=== PATIENT | male | born 1960 | race Caucasian/White ===

== ENCOUNTER → 2020-06-04 08:25 | Outpatient (BNVA) | payer MEDICAID, SELFPAY | PROVIDERS: PCP Internal Medicine Geriatric Medicine; Referring Provider Internal Medicine Geriatric Medicine; Visit Provider Psychiatry & Neurology Neurology | DX: Z76.89 Persons encountering health services in other specified circumstances (principal) ==

== ENCOUNTER 2020-07-26 10:42 | Outpatient (REF) | payer MEDICAID, SELFPAY | END 2020-07-26 10:43 | disposition home or self-care (01) | LOC: HO.LAB 10:42 | PROVIDERS: Visit Provider Internal Medicine | DX: Z20.822 Contact with and (suspected) exposure to COVID-19 (principal) | CPT/HCPCS: 36415; C9803; U0003 ==

== ENCOUNTER → 2020-09-26 12:47 | Outpatient (BNVA) | payer MEDICAID, SELFPAY | PROVIDERS: PCP Internal Medicine Geriatric Medicine; Visit Provider Internal Medicine Cardiovascular Disease | DX: I10 Essential (primary) hypertension (principal); Z79.899 Other long term (current) drug therapy | CPT/HCPCS: 93005; 99212 ==

== ENCOUNTER 2020-10-09 11:00 | Outpatient (REF) | payer MEDICAID, SELFPAY ==
[2020-10-09 14:34] LABS: SARS COV2 PCR INHOUSE NEGATIVE (Negative)
== END 2020-10-09 11:01 | disposition home or self-care (01) ==
LOC: HO.LAB 11:00
PROVIDERS: Visit Provider Internal Medicine
DX: Z20.822 Contact with and (suspected) exposure to COVID-19 (principal)
CPT/HCPCS: C9803; U0003

== ENCOUNTER → 2020-12-03 09:05 | Outpatient (BNVA) | payer MEDICAID, SELFPAY | PROVIDERS: PCP Internal Medicine Geriatric Medicine; Visit Provider Psychiatry & Neurology Neurology ==

== ENCOUNTER → 2021-02-11 10:35 | Outpatient (BNVA) | payer MEDICAID, SELFPAY | PROVIDERS: PCP Internal Medicine Geriatric Medicine; Visit Provider Psychiatry & Neurology Neurology ==

== ENCOUNTER 2022-08-06 09:05 | Outpatient (REF) | payer MEDICAID, SELFPAY ==
--- NOTE | ~2022-08-06 | XR_ITS ---
EXAMINATION: XR CHEST CLINICAL INFORMATION: Chronic cough. COMPARISON: None TECHNIQUE: 2 views of the chest were obtained. FINDINGS: The lungs are well-expanded and clear of acute process. Heart size and pulmonary vascularity is normal. There are epidural nerve stimulators overlying the T9 and T10 vertebra. There is mild lateral spondylosis mid and lower dorsal spine. XR/XR chest 2V IMPRESSION: Unremarkable chest exam.
== END 2022-08-06 09:06 | disposition home or self-care (01) ==
LOC: HO.XRAY 09:05
PROVIDERS: PCP Internal Medicine Geriatric Medicine; Visit Provider Emergency Medicine
DX: R05.3 Chronic cough (principal)
CPT/HCPCS: 71046

== ENCOUNTER 2023-05-13 11:03 | Outpatient (REF) | payer OTHER, MEDICAID, SELFPAY ==
--- NOTE | ~2023-05-13 | XR_ITS ---
EXAMINATION: XR THORACOLUMBAR SPINE CLINICAL INFORMATION: Chronic left-sided thoracic pain COMPARISON: Chest radiograph 08/11/2017, thoracic spine 05/03/2014 TECHNIQUE: 2 views thoracic spine FINDINGS: Again seen are some moderate degenerative changes in the thoracic spine most marked in the mid and lower portion. Since the prior study, a spinal stimulator has been placed with leads at the top of T9. No compression fractures are seen. No destructive lesions are present. Degenerative changes are also present in the partially visualized visualized lumbosacral spine with changes most marked at L2-L3 with large osteophytes. XR/XR thoracic spine 2V IMPRESSION: Degenerative changes in the thoracic and lumbosacral spine as described above. Spinal stimulator leads as described above.
[2023-05-17 12:49] LABS: Fentanyl, Ur NEGATIVE; Norfentanyl, Ur NEGATIVE
== END 2023-05-13 11:04 | disposition home or self-care (01) ==
LOC: HO.HHCX 11:03
PROVIDERS: Internal Medicine Geriatric Medicine; Visit Provider Internal Medicine
DX: G89.4 Chronic pain syndrome (principal); M54.6 Pain in thoracic spine
CPT/HCPCS: 72070; 80354

== ENCOUNTER 2023-09-27 10:37 | Outpatient (REF) | payer OTHER, MEDICAID, SELFPAY ==
[2023-09-27 13:14] LABS: MANUAL DIFF FLAG NO
[2023-09-27 13:42] LABS: Basophils Percent Auto 0.4 % (0-2); Eosinophils Absolute Auto 0.2 X10*3/uL (0.0-0.4); Eosinophils Percent Auto 1.8 % (0-4); Hematocrit 40.4 % (42.0-52.0); Hemoglobin 13.5 g/dl (14.0-18.0); Imm Gran Abs Auto 0.02 X10*3/uL (0.00-0.03); Imm Gran Pct Auto 0.2 % (0.0-0.4); Lymphocytes Absolute Auto 3.1 X10*3/uL (1.2-4.9); Lymphocytes Percent Auto 33.2 % (20-40); Mean Corpuscular HGB Conc 33.4 g/dl (31.0-36.0); Mean Corpuscular Hemoglobin 28.1 pg (27.0-33.0); Mean Corpuscular Volume 84.2 fL (80.0-98.0); Mean Platelet Volume 10.8 fL (9.4-12.4); Monocytes Absolute Auto 0.7 X10*3/uL (0.1-1.2); Monocytes Percent Auto 7.4 % (2-11); Neutrophils Absolute Auto 5.3 x10*3/uL (2.0-8.3); Platelet Count 315 X10*3/uL (160-400); Red Cell Distribution Width 14.9 % (11.0-16.0); White Blood Count 9.4 X10*3/uL (4.8-10.8)
[2023-09-27 14:16] LABS: Alanine Aminotransferase 26 U/L (0-40); Alkaline Phosphatase 68 U/L (39-117); Anion Gap 11 (12-20); Aspartate Amino Transferase 24 U/L (5-37); Bilirubin Total 0.4 mg/dL (0.0-1.0); Blood Urea Nitrogen 15 mg/dL (9-16); Calcium 9.6 mg/dL (8.4-10.2); Carbon Dioxide 30 mmol/L (22-29); Chloride 102 mmol/L (96-108); Cholesterol 128 mg/dL (<200); Estimated Glomerular Filt Rate > 60; Glucose Random 178 mg/dL (60-115); HDL Cholesterol 38 mg/dL (>40); LDL Cholesterol Calculated 78 mg/dL (<100); Sodium 139 mmol/L (135-145); Total Protein 7.3 g/dL (6.5-8.0); Triglycerides 61 mg/dL (<150)
[2023-09-27 14:22] LABS: TSH reflex Free T4 0.63 uIU/mL (0.32-4.0)
[2023-09-27 14:50] LABS: Creatinine Urine 155.01 mg/dL
== END 2023-09-27 10:38 | disposition home or self-care (01) ==
LOC: HO.HHCL 10:37
PROVIDERS: Visit Provider Internal Medicine Geriatric Medicine
DX: E11.65 Type 2 diabetes mellitus with hyperglycemia (principal); I10 Essential (primary) hypertension; M54.6 Pain in thoracic spine; G89.29 Other chronic pain; E03.9 Hypothyroidism, unspecified
CPT/HCPCS: 36415; 80053; 80061; 82043; 82570; 84443; 85025

== ENCOUNTER 2024-05-16 13:32 | Outpatient (REF) | payer OTHER, MEDICAID, SELFPAY | END 2024-05-16 13:33 | disposition home or self-care (01) | LOC: HO.HHCLNP 13:32 | PROVIDERS: Visit Provider Internal Medicine Geriatric Medicine | DX: G89.4 Chronic pain syndrome (principal) | CPT/HCPCS: 80307 ==

== ENCOUNTER 2025-01-02 10:18 | Outpatient (REF) | payer OTHER, MEDICAID, SELFPAY ==
--- OUTSIDE RECORDS SUMMARY | 2025-01-02 11:24 | XMS_ITS | Encounter Summary ---
Author Organization [facility] Address [address] [facility] 7 [place] [address] Care Team Providers Care Holter Technician Name Role Phone Name, Jayjay JUAREZ Primary Care Provider [phone] Reason for Visit * Reason Comments Med Refill Encounter Details Date Type Department Care Team ([facility] st Contact Info) Description 11/13/2024 Refill [facility] [address] [place], [place] [phone] Rylee Forrester, LUIS [address] [place], [place] [phone] Chronic pain syndrome Social History Tobacco Use Types Packs/Day Years Used Date Smoking Tobacco: Never Smokeless Tobacco: Never Alcohol Use Standard Drinks/Week Comments Never 0 (1 standard drink = 0.6 oz pur e alcohol) Alcohol Answer Date Recorded Frequency of Alcohol Consumption Not on file 01/07/2024 Average Number of Drinks Not on file 024 Frequency of Binge Drinking Not on file 12/11 Score 0 01/07/2024 Depression Answer Date Recorded Patient Health Questionnaire-9 Score 6 09/27/2023 Patient Health Questionnaire-9 Score 6 09/27/2023 Last PHQ-9: Questionnaire Data Not on file 0 09/27/2023 Housing Stability Answer Date Recorded What is your housing situation today? I have jane horn 01/07/[address] you li ve. Do you have problems with any of the following? None of the above 01/07/2024 Food Insecurity Answer Date Recorded Within the past 12 months, y ou worried that your food would run out before you got money to buy more: Never True 01/07/2024 Within the past 12 months,th e food you bought just didn't last and you didn't have enough money to get more: Never True Transportation Answer Date Recorded In the past 12 months, has l ack of transportation kept you from medical appts, meetings, work or from getting things needed for daily living? No 01/07/2024 Utilities Answer Date Recorded In the past 12 months, has t he electric, gas, oil or water company threatened to shut off services in your home? No 01/07/2024 Depression Answer Date Recorded Patient Health Questionnaire-2 Score 2 09/27/2023 Internet Access Answer Date Recorded Internet Access Q1 No 03/10/2024 Internet Access Q2 I do not want or need it 02/11 Sex and Gender Information Value Date Recorded Sex Assigned at Male 05/11/2022 10:20 AM EDT Legal Sex Male 10:20 AM EDT Gender Identity Male 05/11/2022 10:20 AM EDT Sexual Orientation Straight 05/11/2022 10 :20 AM EDT documented as of this encounter Plan of Treatment Upcoming Encounters Date Type Department Care Team (Late st Contact Info) Description 01/03/2025 10:30 AM EDT Clinical Support [facility] [address] [place] [phone] Charisse Crisostomo RN 01/11/2025 11:15 AM EDT Office Visit [facility] [address] [place] [phone] Name, MD Jayjay [address] [place] [phone] documented as of this encounter Goals Goal Patient Goal Type Associated Problems Recent Progress Patient-Stated? Author Blood Pressure < 140/90 Blood Pressure 117/67(2024 12:01 PM EST) Heriberto Barnard Hemoglobin A1c < 7 Result Component 7.3( 9:36 AM EST) Heriberot Barnard documented as of this encounter Visit Diagnoses Diagnosis Chronic pain syndrome documented in this encounter Additional Health Concerns Assessment Noted Time PHQ-9 Depression Total Score: 6 09/27/19 24 9:51 AM EDT documented as of this encounter Care Teams Holter Technician Relationship Specialty Start Date End Date Name, MD Jayjay [address] [place] [address] PCP - General Family Medicine 07/26/15 documented as of this encounter
[2025-01-02 12:03] LABS: Alanine Aminotransferase 19 U/L (0-40); Albumin Level 3.8 g/dL (3.5-5.0); Alkaline Phosphatase 56 U/L (39-117); Anion Gap 12 (12-20); Aspartate Amino Transferase 28 U/L (5-37); Bilirubin Total 0.3 mg/dL (0.0-1.0); Blood Urea Nitrogen 17 mg/dL (9-16); Calcium 9.2 mg/dL (8.4-10.2); Carbon Dioxide 32 mmol/L (22-29); Chloride 102 mmol/L (96-108); Cholesterol 131 mg/dL (<200); Estimated Glomerular Filt Rate > 60; Glucose Random 247 mg/dL (60-115); HDL Cholesterol 37 mg/dL (>40); LDL Cholesterol Calculated 73 mg/dL (<100); Potassium 4.5 mmol/L (3.3-5.1); Sodium 141 mmol/L (135-145); Total Protein 6.8 g/dL (6.5-8.0); Triglycerides 107 mg/dL (<150)
[2025-01-02 12:19] LABS: Creatinine Urine 183.24 mg/dL; Microalbum/Creatinine Ratio Ur 6.5 ug/mg cr (<30)
[2025-01-02 12:24] LABS: TSH reflex Free T4 2.54 uIU/mL (0.32-4.0)
== END 2025-01-02 10:19 | disposition home or self-care (01) ==
LOC: HO.HHCL 10:18
PROVIDERS: PCP Internal Medicine Geriatric Medicine; Visit Provider Internal Medicine Geriatric Medicine
DX: E03.9 Hypothyroidism, unspecified (principal); E11.65 Type 2 diabetes mellitus with hyperglycemia
CPT/HCPCS: 36415; 80053; 80061; 82043; 82570; 84443

== ENCOUNTER 2025-02-20 10:41 | Outpatient (REF) | payer OTHER, SELFPAY ==
--- NOTE | ~2025-02-20 | XR_ITS ---
CLINICAL HISTORY: M54.50 - Low back pain, unspecified 5 views lumbar spine Comparison: None provided Findings: Normal alignment. No acute fractures or dislocation. Multilevel degenerative changes of the lumbar spine with osteophytes and narrowing of the intervertebral disc space. Spinal stimulator. IMPRESSION: No acute findings. Multilevel degenerative changes. This document has been electronically signed by: Funmilayo Velasquez MD on 02/21/2025 13:11:01
--- NOTE | ~2025-02-20 | XR_ITS ---
CLINICAL HISTORY: Z96.89 - Presence of other specified functional implants 3 views thoracic spine Comparison: CR/SR - XR THORACIC SPINE 2 VIEWS - 05/13/23 11:24 EDT Findings: Normal vertebral body alignment. No acute fractures or dislocation. There is degenerative change. The tip of the electrodes of the spinal stimulator is at level of T9, unchanged from prior. IMPRESSION: No acute findings. This document has been electronically signed by: Funmilayo Velasquez MD on 02/21/2025 13:13:50
== END 2025-02-20 10:42 | disposition home or self-care (01) ==
LOC: HO.XRAY 10:41
PROVIDERS: PCP Internal Medicine Geriatric Medicine; Referring Provider Internal Medicine Geriatric Medicine; Visit Provider Nurse Practitioner Family
DX: M51.16 Intervertebral disc disorders with radiculopathy, lumbar region (principal); M47.26 Other spondylosis with radiculopathy, lumbar region; M51.34 Other intervertebral disc degeneration, thoracic region; G89.29 Other chronic pain; Z96.89 Presence of other specified functional implants
CPT/HCPCS: 72072; 72110; 99202

== ENCOUNTER 2025-02-20 10:41 | Outpatient (AMB) | payer OTHER, SELFPAY ==
--- NOTE | 2025-02-20 10:43 | A.OFFVIS_ITS ---
Vital Signs 02/20/25 10:50 Height 5 ft 11 in Weight 225 lb 2 oz BMI 31.4 BP 166/83 H Blood Pressure Location Lt brachial Position Sitting Pulse 71 Pulse Source Pulse Oximeter Pulse Oximetry (%) 96 Oxygen Delivery Method Room Air Intake Visit Reasons: Chronic pain syndrome Intake Note: Pain today 02/18 Accompanied by: Family/Other Allergies No Known Allergies Allergy (Verified 02/11/21 10:36) oxycodone Adverse Reaction (Unknown, Verified 02/11/21 10:36) itching lactose Allergy (Unknown, Uncoded 02/11/21 10:36) unknown HPI Comments Details: The patient is a 65-year-old male presenting with chronic pain syndrome. The pain is primarily located in the lower back, with a greater intensity on the right side, and has been persistent for several years. He previously engaged with [facility] and completed physical therapy five years ago. The patient has a history of degeneration of the lumbar intervertebral discs and arthritis, leading to discogenic back pain and lower extremity pain. He has been on medications including Lyrica, oxycodone, and Tylenol to manage the pain. Despite these interventions, the pain has been debilitating, affecting his daily activities, mobility, and sleep. He has a spinal cord stimulator placed in 2015 at [facility], which he believes is not providing significant relief currently. Attempts to contact [employer] for assistance have been hindered by language barriers, and the device has not been functioning properly although he reports significant back and leg pain relief when it was initially placed. The patient also reports a history of depression following the deaths of his and mother, although he is not suicidal. He is under the care of a counselor and Psychiatric provider and is on medication with good effect. Additionally, he has diabetic neuropathy, which contributes to numbness and tingling extending to the ankles and feet. - Onset: Chronic, persistent for several years - Quality: Radiating, numbness, tingling, cramping, shooting, stabbing, aching, throbbing - Location: Lower back, primarily right side, radiating to right leg - Exacerbating factors: Mobility, daily activities and functions, sleep, bending, climbing stairs - Relieving factors: Medications (Lyrica, oxycodone, Tylenol) with limited effect - Affect: Reports depression, not suicidal, under psychiatric care - Analgesia: Currently on Lyrica, oxycodone, Tylenol; pain persists - Adverse Effects: None reported - Activities of Daily Living: Pain affects mobility, daily activities, and sleep - Aberrant Drug Related Behaviors: None reported [facility] Medical History Spinal cord stimulator status (~2014) Thoracic degenerative disc disease Lumbar degenerative disc disease Chronic low back pain Chronic pain syndrome HTN (hypertension) Hx of cataract Surgical History Hx of colonoscopy Hx of appendectomy History of penile implant Hx of transurethral resection of prostate History of back surgery (~2014) Family History Father Kidney disease Mother No problems noted. Review of Systems Const Details: - Musculoskeletal: Reports chronic lower back pain, numbness, tingling right leg, cramping in right calf, right buttock pain, and down the leg and toes - Neurological: Reports right leg weakness, numbness and tingling extending to the ankle; denies bladder or bowel dysfunction or saddle anesthesia - Psychiatric: Reports depression, denies suicidal ideation; sees Psychiatrist and counselor - Endocrine: Reports diabetic neuropathy All systems reviewed & are unremarkable except as noted in HPI and below Physical Exam Vital Signs: Last Vital Signs Pulse 71 02/20/25 10:50 BP 166/83 H 02/20/25 10:50 Pulse Ox 96 02/20/25 10:50 Oxygen Delivery Method Room Air 02/20/25 10:50 BMI result Body Mass Index 31.4 General: Appears afebrile. Alert and oriented. Mood and affect appropriate. Follows and participates in conversation appropriately. Respiratory effort is unlabored. No cough. Able to transition from sit to stand unassisted. Uses cane with ambulation. Ambulates with bilaterally normal heel strike and toe off, RLE weakness and pain with walking. General: Yes no CVA tenderness Back/Spine/Pelvis Other: Limited lumbar ROM due to pain. Antalgic gait, no limping. Demonstrates 5/5 left and 4/5 right strength of quadriceps bilaterally as well as flexion/dorsiflexion of bilateral feet against resistance. 2+ pedal pulses bilaterally. Straight leg rise with dorsiflexion positive on the right. +1 right +2 left patellar and achilles reflexes bilaterally. Facet loading test positive bilaterally. Oscar?s, Pelvic compression and Stinchfield tests are negative bilaterally. No groin pain with I/E hip rotations. Valsalva maneuver is positive. Back: no CVA tenderness Cervical Spine: cervical ROM normal, cervical muscular tenderness, No Cervical spine tenderness and No step off deformity Thoracic/Lumbar Spine: thoracic and lumbar spine normal to inspection, Thoracic/lumbar spine scar(s), Lasegue's sign positive on the right and localized, pain with thoraco-lumbar ROM, paraspinal muscle tenderness, No thoracic spinal tenderness and lumbar spinal tenderness (L4-S1) Pelvis: buttock tenderness on the right Sacroiliac joints: bilaterally tender to palpation (mild) Extrem General: Yes capillary refill normal, Yes no clubbing, cyanosis or edema and Yes no calf tenderness Results Reviewed Results Reviewed: XR THORACOLUMBAR SPINE 05/13/23 CLINICAL INFORMATION: Chronic left-sided thoracic pain COMPARISON: Chest radiograph 08/11/2017, thoracic spine 05/03/2014 TECHNIQUE: 2 views thoracic spine FINDINGS: Again seen are some moderate degenerative changes in the thoracic spine most marked in the mid and lower portion. Since the prior study, a spinal stimulator has been placed with leads at the top of T9. No compression fractures are seen. No destructive lesions are present. Degenerative changes are also present in the partially visualized visualized lumbosacral spine with changes most marked at L2-L3 with large osteophytes. IMPRESSION: Degenerative changes in the thoracic and lumbosacral spine as described above. Spinal stimulator leads as described above. Assessment & Plan Assessment & Plan (1) Chronic low back pain: Code(s): M54.50 - Low back pain, unspecified; G89.29 - Other chronic pain Category: Medical (2) Spinal cord stimulator status: Onset Date: ~2014 Comment: [employer], placed by [employer] 2014 Code(s): Z96.89 - Presence of other specified functional implants Category: Medical (3) Lumbar degenerative disc disease: Code(s): M51.369 - Other intervertebral disc degeneration, lumbar region without mention of lumbar back pain or lower extremity pain Category: Medical (4) Lumbosacral spondylosis: Code(s): M47.817 - Spondylosis without myelopathy or radiculopathy, lumbosacral region Category: Medical (5) Thoracic degenerative disc disease: Code(s): M51.34 - Other intervertebral disc degeneration, thoracic region Category: Medical (6) Chronic pain syndrome: Code(s): G89.4 - Chronic pain syndrome Category: Medical (7) Right lumbar radiculopathy: Code(s): M54.16 - Radiculopathy, lumbar region Category: Medical Plan - Plan to perform x-rays of the thoracic and lower back regions to assess for lead migration of the spinal cord stimulator and degree of degenerative changes - MRI of the back to be conducted to further evaluate right sided radiculopathy and associated right leg weakness with walking. - Contact [employer] rep to address issues with the spinal cord stimulator and update SCS program as needed to optimize pain relief. - Discussed consideration of therapeutic injections if pain management remains inadequate. Continue Percocet and Lyrica and activity modifications. All questions and concerns have been answered and patient agreed with the plan. Follow up for MRI/xray results and sooner as needed. Patient was informed and verbally consented to the use of an ambient scribe for clinic note documentation during this visit. Orders: Orders XR lumbar spine 4V min Today G89.29 - Other chronic pain, M47.817 - Spondylosis without myelopathy or radiculopathy, lumbosacral region, M51.369 - Other intervertebral disc degeneration, lumbar region without mention of lumbar back pain or lower extremity pain, M54.50 - Low back pain, unspecified, Z96.89 - Presence of other specified functional implants XR thoracic spine 3V Today M51.34 - Other intervertebral disc degeneration, thoracic region, Z96.89 - Presence of other specified functional implants MR lumbar spine wo con Today M51.369 - Other intervertebral disc degeneration, lumbar region without mention of lumbar back pain or lower extremity pain, M54.16 - Radiculopathy, lumbar region, Z96.89 - Presence of other specified functional implants Coding Level of Care Code New Pt Level 4 (06932) Diagnoses Chronic low back pain M54.50; G89.29 Spinal cord stimulator status Z96.89 Lumbar degenerative disc disease M51.369 Lumbosacral spondylosis M47.817 Thoracic degenerative disc disease M51.34 Chronic pain syndrome G89.4 Right lumbar radiculopathy M54.16
[2025-02-20 10:50] VITALS: BP 166/83; PULSE 71; O2SAT 96; BMI 31.4
--- OUTSIDE RECORDS SUMMARY | 2025-02-20 11:46 | XMS_ITS | Encounter Summary ---
Author Organization [facility] Address [address] [place] [address] Encounters * CPT with Randall Clifford at [facility] on 2025-01-18 { reasonForRequest : Patient has back pain. , patientReports : & quot;, denies :[], chiefComplaints : Back Pain , pmh : Hypertension, Diabetes Mellitus Type 2, Osteoarthritis, Hypothyroidism , allergies :"No Known Drug Allergies , otherAllergies : , painAssessment&quot ;: , visitOutcome : , additionalComments : 64 y.o male complains of Back Pain\n\nPatient acute on chronic back pain.\nHe expresses severe arthritis and p inched nerves.\nHe has received cortisone injections, however, doctors advised against anymore due to bone loss.\nPatient does have physical therapy but it makes the pain worse.\nHe takes oxycodone for pain, but it does not offer much relief.\nHe is in the process of getting an appt with the pain clinic.\nHe has used heat, ice and patches.\nHe denies any kidney disease and does not take any bloodthinners.\nHe would like to be evaluated.\n\nI provided information on the mobile health provider response time and advised the patient and/or caregiver to monitor reported signs and symptoms. I discussed the warning signs of when to seek emergency care. } Patient standing at door. Patient walks with a steady even slow GAIT with a cane. Patient complainsof chronic lower back pain times years. Patient reports increased pain today because he ran out of oxycodone and gabapentin. Patient reports he has refills coming by mail tomorrow. Patient defies anyrecent trauma. Patient has nerve simulator installed the right side lower back. Patient denies any acute changes. Patient denies any other pain or complaints. Patient pink warm dry secondary exam unremarkable negative increased worker breathing positive fullsentences, extremities unremarkable. Medication administered as ordered without complication using five rights. Red flags patient education discussed. Patient demonstrates understanding of care and plan. All communication through caregivers non medical on phone. Patient given an opportunity to ask questions. IV_(FLUIDS_AND/OR_MEDICATION), MEDICATION_IM, ORAL_MEDICATION, EKG Written by Randall Clifford on 2025-01-18
--- OUTSIDE RECORDS SUMMARY | 2025-02-20 11:46 | XMS_ITS | Encounter Summary ---
Author Organization [facility] Address [address] [place] [address] Care Team Providers Care Dredge Lever Operator Name Role Phone Name, Jayjay JUAREZ Primary Care Provider [phone] Reason for Visit * Reason Comments Med Refill Encounter Details Date Type Department Care Team ([facility] st Contact Info) Description 11/13/2024 Refill [facility] [address] [place], [place] [id number] Rylee Forrester, LUIS [address] [place], [place] [phone] Chronic pain syndrome Social History Tobacco Use [...] Care Team (Late st Contact Info) Description 05/07/2025 10:00 AM EDT Clinical Support [facility] [address] [place] [address] Charisse Crisostomo RN documented as of this encounter Goals Goal Patient Goal Type Associated Problems Recent Progress Patient-Stated? Author Blood Pressure < 140/90 Blood Pressure 136/88(2024 11:00 AM EDT) No Heriberto Arellano Hemoglobin A1c < 7 Result Component 6.7( 11:02 AM EDT) No Heriberto Arellano documented as of this encounter Visit Diagnoses Diagnosis Chronic pain syndrome documented in this encounter Additional Health Concerns Assessment Noted Time PHQ-9 Depression Total Score: 6 09/27/19 24 9:51 AM EDT documented as of this encounter Care Teams Dredge Lever Operator Relationship Specialty Start Date End Date Name, MD Jayjay [address] [place] [address] PCP - General Family Medicine 07/26/15 documented as of this encounter
--- OUTSIDE RECORDS SUMMARY | 2025-02-20 11:46 | XMS_ITS | Patient Health Record ---
Author Organization [facility] Address [address] [place] [id number] Care Team Providers Care Manufacturing Engineer Machining Name Role Phone Leeann Rahman MD Primary Care Provider Kolton Khan [phone] Reason For Referral No Information Plan Of Treatment No Information
--- OUTSIDE RECORDS SUMMARY | 2025-02-20 11:46 | XMS_ITS | Clinical Summary ---
Author Organization [facility] Address [address] [place] [address] Care Team Providers Care Head Of Precision Targeting Name Role Phone Name, Jayjay JUAREZ Primary Care Provider [phone] Surgical History Surgery Date Site/Laterality Comments TURP / TRANSURETHRAL INCISIO N / DRAINAGE PROSTATE PROCEDURE: HISTORICAL TURP EYE SURGERY PROCEDURE: HISTORICAL EYE SURGERY; COMMENT: for pterigion OTHER SURGICAL HISTORY PROCEDURE: ---- OTHER ----; COMMENT: pennis surgery of peironie disease. BACK SURGERY 04/08/2015 PROCEDURE: HISTORICAL BACK SURGERY; COMMENT: Lumbar Percutaneous Spinal Cord Stimulator, Medical History Medical History Date Comments GE reflux 09/01/2012 DX:GE reflux Erectile dysfunction 09/01/2012 DX:Erectile dysfunction Obesity DX:Obesity Obstructive sleep apnea DX:Obstr uctive sleep apnea Type 2 diabetes mellitus (CM S/HCC V24, CMS/HCC V28) DX:Type 2 diabetes mellitus (HCC) Diabetic polyneuropathy (CMS /HCC V24, CMS/HCC V28) DX:Diabetic polyneuropathy ( HCC) Essential hypertension DX:Essent ial hypertension Lumbosacral radiculopathy du e to degenerative joint disease of spine DX:Lumbosacral rad iculopathy due to degenerative joint disease of spine Fibromyalgia DX:Fibromyalgia Anxiety and depression DX:Anxiet y and depression Hypothyroidism DX:Hypothyroidis m BPH (benign prostatic hyperplasia) DX:BPH (benign prostatic hyperplasia) Hyperlipidemia DX:Hyperlipidemi a Family History Medical History Relation Name Comments Autoimmune disease Neg Hx Breast cancer Neg Hx Colon cancer Neg Hx Coronary artery disease Neg Hx Diabetes Neg Hx Heart attack Neg Hx Heart failure Neg Hx Hyperlipidemia Neg Hx Hypertension Neg Hx Mental illness Neg Hx Prostate cancer Neg Hx Sleep apnea Neg Hx Thyroid disease Neg Hx Relation Name Status Comments Brother Alive asthma Daughter 1 Alive Daughter 2 Alive depression/bipo lar Father DM, ESRD Mother Alive HTN Sister Alive asthma Son Alive Social History Tobacco Use Types Packs/Day Years Used Date Smoking Tobacco: Never Smokeless Tobacco: Never Alcohol Use Standard Drinks/Week Comments No 0 (1 standard drink = 0.6 oz pur e alcohol) Sex and Gender Information Value Date Recorded Sex Assigned at Not on file Legal Sex Male 11:38 PM EST Gender Identity Not on file Sexual Orientation Not on file Obstetrics History Last Filed Vital Signs Vital Sign Reading Time Taken Comments Blood Pressure - - Pulse - - Temperature - - Respiratory Rate - - Oxygen Saturation - - Inhaled Oxygen Concentration - - Weight 111 kg (244 lb) 04/24/2022 1:42 PM EDT Height 177.8 cm (5' 10 ) 04/24/2022 1:42 PM EDT Body Mass Index 35.01 04/24/2022 1:42 PM EDT Plan of Treatment Health Maintenance Due Date Last Done Comments Diabetes: Annual GFR (Glomerular Filtration Rate) 1958 Diabetes: Annual Foot Exam 02/06/1968 Diabetes: Annual Retina Eye Exam 02/06/1968 Zoster Vaccines (1 of 2) 02/06/2008 Pneumococcal Vaccine: 50+ Years (2 of 2 - PCV) 04/10/2011 04/10/2010 DTaP,Tdap,and Td Vaccines (2 - Td or Tdap) 03/19/2021 03/19/2011 Abdominal Aortic Aneurysm (AAA) Screen 06/21/2022 Cholesterol Screening (Lipid Panel) 06/21/2022 Colorectal Cancer Screening: Colonoscopy 06/21/2022 Hepatitis C Screening 06/21/2022 Social Influencers of Health Screening 06/21/2022 Diabetes: Annual Urine Albumin-Creatinine Ratio (uACR) 06/26/2022 Diabetes: Blood Sugar Control Test (HGBA1C) 06/26/2022 Hypertension/CHF/CAD Annual BMP Blood Test 06/26/2022 Falls Risk Assessment 2023 COVID-19 Vaccine ( season) 2024 Depression Screening 07/12/2024 Influenza Vaccine (#1) 2025 5, 06/12/2014, 04/18/2013, Additional history exists RSV Immunization Adult Patients (1 - 1-dose 75+ series) 2033 HIB Vaccines Aged Out No longer eligi ble based on patient's age to complete this topic HPV Vaccines Aged Out No longer eligi ble based on patient's age to complete this topic Hepatitis A Vaccines Aged Out No long er eligible based on patient's age to complete this topic Hepatitis B Vaccines Aged Out No long er eligible based on patient's age to complete this topic IPV Vaccines Aged Out No longer eligi ble based on patient's age to complete this topic MMR Vaccines Aged Out No longer eligi ble based on patient's age to complete this topic Meningococcal ACWY Vaccine Aged Out N o longer eligible based on patient's age to complete this topic Meningococcal B Vaccine Aged Out No l onger eligible based on patient's age to complete this topic RSV Immunization Patients Under 20 months Aged Out No longer eligible based on patient's age to complete this topic Varicella Vaccines Aged Out No longer eligible based on patient's age to complete this topic Care Teams Head Of Precision Targeting Relationship Specialty Start Date End Date Name, MD Jayjay [address] [place], [place] PCP - General Internal Medicine 05/13/21
== END 2025-02-20 11:20 | disposition home or self-care (01) ==
PROVIDERS: PCP Internal Medicine Geriatric Medicine; Referring Provider Internal Medicine Geriatric Medicine; Visit Provider Nurse Practitioner Family
DX: M54.50 Low back pain, unspecified (principal); G89.29 Other chronic pain; Z96.89 Presence of other specified functional implants; M51.369 Other intervertebral disc degeneration, lumbar region without mention of lumbar back pain or lower extremity pain; M47.817 Spondylosis without myelopathy or radiculopathy, lumbosacral region; M51.34 Other intervertebral disc degeneration, thoracic region; G89.4 Chronic pain syndrome; M54.16 Radiculopathy, lumbar region
CPT/HCPCS: 99204

== ENCOUNTER → 2025-02-20 11:30 | Outpatient (BNV) | payer OTHER, SELFPAY | PROVIDERS: PCP Internal Medicine Geriatric Medicine; Referring Provider Internal Medicine Geriatric Medicine; Visit Provider Nuclear Medicine | DX: M51.369 Other intervertebral disc degeneration, lumbar region without mention of lumbar back pain or lower extremity pain (principal); Z96.82 Presence of neurostimulator | CPT/HCPCS: 72072; 72110 ==

== ENCOUNTER 2025-05-07 16:35 | Outpatient (REF) | payer OTHER, SELFPAY ==
--- OUTSIDE RECORDS SUMMARY | 2015-01-03 12:22 | XMS_ITS | Continuity of Care Document ---
Author Organization [facility] Address [address] [place] [address] Phone Care Team Providers Care Senior Market Research Analyst Name Role Phone Fede Mansfield MD Unavailable Unavailable Advance Directives Directive Yes / No Effective Date File Name No Information Encounters Encounter Description Practice Location Reason(s) For Visit Diagnoses Date Provider Providers Copied on Encounter [facility], [address], [place], [place], [id number], [place] tel:[phone] [facility] No Information Shyla Mistry. [address] [place], [place], [id number], [place]. tel:[phone] Family History Family Member Type Diagnosis Age At Onset No Information Payers Payer name Insurance type Covered alliance party ID Authoriza tion(s) No Information Social History Type Description Quantity Date Captured Comments Sex Male Smoking Status No Information Chief Complaint And Reason For Visit No Information Reason For Referral Reason For Referral No Information History Of Present Illness Encounter Date Complaint History Of Prese nt Illness No Information Functional Status Date Functional Assessmen t No Information Instructions Date Instruction Additional Infor mation No Information Assessments Type Assessment Date No Information Patient Care Teams Name Effective Dates (start - stop) Status Members No Information
--- OUTSIDE RECORDS SUMMARY | 2021-04-25 07:15 | XMS_ITS | Continuity of Care Document ---
Author Organization [facility] Address [address] [place] [phone] Phone Care Team Providers Care Clinical Auditor Name Role Phone Abdulkadir Conner MD Unavailable Unavailable Allergies, Adverse Reactions, Alerts Substance Reaction Status Criticality No Known Allergies Active No Inform ation Problems Condition Type Effective Dates (start - stop) Clini avelina Status Comments No Known Problems Procedures Procedure Date GLYCATED HEMOGLOBIN TEST OFFICE/OUTPATIENT VISIT, [facility] Results Test Name Date and Time Measure Units Reference Range Abnormal Flag Status Commen ts Panel Description: GLYCATED HEMOGLOBIN TEST Fin al GLYCATED HEMOGLOBIN TEST 12:53:55 12.0 Final Advance Directives Directive Yes / No Effective Date File Name No Information Encounters Encounter Description Practice Location Reason(s) For Visit Diagnoses Date Provider Providers Copied on Encounter OFFICE/OUTPA TIENT VISIT, [facility], [address] [place] [address], [id number], tel:[phone] [facility] general physical (chief complaint) Fatigue, unspecified typeBMI 27.0-27.9,adultDiet ciera counseling and surveillanceExercis e counseling Ubaldo Hodges. [address] [place], [place], [id number] , [place]. tel:[phone] Family History Family Member Type Diagnosis Age At Onset No Information Payers Payer name Insurance type Covered libertarian ID Authoriza tion(s) No Information Social History Type Description Quantity Date Captured Comments Alcohol Use Details No Caffeine Use Details coffee 1 cup per day Tobacco Use Status Current non-smoker Smoking Status Never smoker Non-Smoking Tobacco Use Details : No Details Available : No Details Available Sex Female Sexual Orientation Straight or heterosexual Gender Identity Male Vital Signs Date / Time: Height Weight BMI Pulse Rate Blood Pressure Temperature Respiratory Rate Body Surface Area Head Circumference Head Circ. Percentile Wt./Cody. Percentile BMI percentile Pulse Ox Inhaled Ox 8:50 AM 66.00 in 78.018 kg (172.00 lbs) 27.7 6 kg/m eter (2) 93 /min 142/87 mm[Hg] 98.30 F 16 /min 96 % Chief Complaint And Reason For Visit From encounter dated '04/25/2021 11:15'. general physical (chief complaint). Description: requesting laboratory no chronic medicl conditions Reason For Referral Reason For Referral No Information Plan Of Treatment Date Type Action Status Future Order: Lab Order CBC With Differential/Platelet ([id number]), Ordered on: Ordered Future Order: Lab Order Lipid Pa leland ([id number]), Ordered on: Ordered Future Order: Lab Order Hemoglob in A1c ([id number]), Ordered on: Ordered Future Order: Lab Order Comp. Me tabolic Panel (14) ([id number]), Ordered on: Ordered Future Order: Lab Order TSH ([id number]), Ord ered on: Ordered Future Order: Lab Order PSA Tota l+% Free ([id number]), Ordered on: Ordered History Of Present Illness Encounter Date Complaint History Of Prese nt Illness general physical requesting labo ratory no chronic medicl conditions Functional Status Date Functional Assessmen t Pain Score 0/10 Instructions Date Instruction Additional Infor mation No Information Assessments Type Assessment Date assessment Fatigue, unspecified type assessment BMI 27.0-27.9,adult assessment Dietary counseling and surveilla nce assessment Exercise counseling Mental Status Date Cognitive Assessment Orientation - [place] ed to time, place, person, situation. Patient Care Teams Name Effective Dates (start - stop) Status Members No Information
--- OUTSIDE RECORDS SUMMARY | 2024-10-04 08:48 | XMS_ITS | Continuity of Care Document ---
Author Organization [facility] Address [address] [place] [address] Phone Care Team Providers Care Steam Shovel Operator Name Role Phone Nurse, Nurse Unavailable Unavailable Allergies, Adverse Reactions, Alerts Substance Reaction Status Criticality No Known Allergies Active No Inform ation Procedures Procedure Date Unbillable Provider Visit REFRACTION EYE EXAM, NEW PATIENT Vision svcs frames purchases FITTING OF SPECTACLES Eye glass case Lens sphcyl bifocal 4.00d/.1 Advance Directives Directive Yes / No Effective Date File Name No Information Encounters Encounter Description Practice Location Reason(s) For Visit Diagnoses Date Provider Providers Copied on Encounter [facility], [address] [place] [address], [id number], tel:[phone] [facility] Encounter for fitting and adjustment of spectacles and contact lenses 5 Nurse Nurse. [address] [place], [address]. tel:[phone] [facility], [address] [place] [address], [id number], tel:[phone] [facility] Diabetic Eye Exam (chief complaint) Hypermetropia, bilateralRegular astigmatism, bilateralPresbyop iaType 2 diabetes mellitus without complications 5 Alfonzo Richardson. [address] [place] [address], [id number] , . tel:[phone] Family History Family Member Type Diagnosis Age At Onset Problem Family history of Diabetes radha aman Payers Payer name Insurance type Covered green party ID Authoriza tion(s) No Information Social History Type Description Quantity Date Captured Comments Alcohol Use Details Unknown Caffeine Use Details Unknown Tobacco Use Status No Information Smoking Status No Information Sex Female Sexual Orientation Straight or heterosexual Sep Gender Identity Male Chief Complaint And Reason For Visit No Information Reason For Referral Reason For Referral No Information History Of Present Illness Encounter Date Complaint History Of Prese nt Illness Diabetic Eye Exam Functional Status Date Functional Assessmen t No Information Instructions Date Instruction Additional Infor mation Impression/Plan Related to Hyper metropia, bilateral Impression/Plan Related to Regul ar astigmatism, bilateral Impression/Plan Related to Presb yopia Impression/Plan Related to Type 2 diabetes mellitus without complications Assessments Type Assessment Date assessment Encounter for fittin g and adjustment of spectacles and contact lenses Patient Care Teams Name Effective Dates (start - stop) Status Members No Information
--- OUTSIDE RECORDS SUMMARY | 2025-04-24 11:15 | XMS_ITS | Continuity of Care Document ---
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 Name Role Phone Laura Justin MD Unavailable Unavail able Allergies, Adverse Reactions, Alerts Substance Reaction Status Criticality No Known Allergies Active No Inform ation Medications Medication Instructions Dosage Effective Dates (start - stop) Status Comments alogliptin 25 mg tablet take 1 tablet by oral route every day 25 MG - Active chlorthalidone 50 mg tablet take 1 tablet by oral route every day 50 MG - Active amlodipine 10 mg tablet take 1 tablet by oral route every day 10 MG - Active lisinopril 40 mg tablet take 1 tablet by oral route every day 40 MG - Active ciclopirox 0.77 % topical cream apply by topical route 2 times every day to the affected and surrounding areas of skin in the morning and evening 0.00 - Active ATORVASTATIN 20 MG TABLET take 1 tablet by oral route before bedtime - Active glipizide 10 mg tablet take 1 tablet by oral route every 12 hours before meals - Active metformin 1,000 mg tablet take 1 tablet by oral route 2 times every day with morning and evening meals 1000 MG - Active Procedures Procedure Date GLUCOSE TEST - 20-29 Min Est OFFICE/OUTPATIENT VISIT Opal GLUCOSE TEST - 20-29 Min Est OFFICE/OUTPATIENT VISIT Shauna 20-29 Min Est OFFICE/OUTPATIENT VISIT Ap GLUCOSE, BLOOD QUANT IMMUNIZATION ADMIN, EACH ADD Zoster Vaccine (SHINGRIX)50MCG/0.5ML IM IMMUNIZATION ADMIN PCV20 VACCINE IM IMMUNIZATION ADMIN, EACH ADD TDAP VACCINE >7 IM 20-29 Min Est OFFICE/OUTPATIENT VISIT Oc EYE EXAM WITH PHOTOS Tropicamide GLUCOSE TEST - 20-29 Min Est OFFICE/OUTPATIENT VISIT Au GLUCOSE TEST - 20-29 Min Est OFFICE/OUTPATIENT VISIT Mo EYE EXAM WITH PHOTOS Tropicamide GLUCOSE, BLOOD QUANT 30-39 Min Est OFFICE/OUTPATIENT VISIT Au GLUCOSE, BLOOD QUANT 30-39 Min Est OFFICE/OUTPATIENT VISIT Fe GLUCOSE, BLOOD QUANT 20-29 Min Est OFFICE/OUTPATIENT VISIT Ju GLUCOSE TEST 20-29 Min Est OFFICE/OUTPATIENT VISIT Ap GLUCOSE TEST 25 Min Est OFFICE/OUTPATIENT VISIT GLUCOSE TEST 25 Min Est OFFICE/OUTPATIENT VISIT GLUCOSE, BLOOD QUANT 15 Min Est OFFICE/OUTPATIENT VISIT GLUCOSE TEST 25 Min Est OFFICE/OUTPATIENT VISIT 25 Min Est OFFICE/OUTPATIENT VISIT GLUCOSE, BLOOD QUANT 25 Min Est OFFICE/OUTPATIENT VISIT GLUCOSE TEST 25 Min Est OFFICE/OUTPATIENT VISIT GLUCOSE TEST 15 Min Est OFFICE/OUTPATIENT VISIT GLUCOSE, BLOOD QUANT GLUCOSE TEST 15 Min Est OFFICE/OUTPATIENT VISIT GLUCOSE, BLOOD QUANT 25 Min Est OFFICE/OUTPATIENT VISIT ROUTINE VENIPUNCTURE COMPREHEN METABOLIC PANEL 75469 019 BLD/SERUM CHOLESTEROL TRIGLYCERIDES LIPOPROTEIN B-TYPE NATRIURETIC PEPTIDE COMPLETE CBC W/AUTO DIFF WBC URINE CULTURE ROUTINE 395 URINE BACTERIA CULTURE PROTHROMBIN TIME BLOOD/URIC ACID 905 MAGNESIUM TOTAL THYROXINE (T4) TSH THYROID STIM HORMONE THYROID T3 Uptake URINALYSIS, Auto W/micro URINE CREATININE 24-Hour MICROALBUMIN, QUANTITATIVE HEMOGLOBIN A1C With Estimation 19 EYE EXAM WITH PHOTOS Tropicamide 15 Min Est OFFICE/OUTPATIENT VISIT GLUCOSE TEST 15 Min Est OFFICE/OUTPATIENT VISIT 15 Min Est OFFICE/OUTPATIENT VISIT GLUCOSE, BLOOD QUANT GLUCOSE TEST 15 Min Est OFFICE/OUTPATIENT VISIT 15 Min Est OFFICE/OUTPATIENT VISIT GLUCOSE TEST EYE EXAM WITH PHOTOS 15 Min Est OFFICE/OUTPATIENT VISIT GLUCOSE, BLOOD QUANT GLUCOSE, BLOOD QUANT 15 Min Est OFFICE/OUTPATIENT VISIT EYE EXAM WITH PHOTOS GLUCOSE TEST 15 Min Est OFFICE/OUTPATIENT VISIT GLUCOSE TEST 25 Min Est OFFICE/OUTPATIENT VISIT GLUCOSE, BLOOD QUANT 25 Min Est OFFICE/OUTPATIENT VISIT 15 Min Est OFFICE/OUTPATIENT VISIT GLUCOSE, BLOOD QUANT X-RAY EXAM OF KNEE, 1 OR 2 GLUCOSE, BLOOD QUANT 15 Min Est OFFICE/OUTPATIENT VISIT GLUCOSE TEST 15 Min Est OFFICE/OUTPATIENT VISIT SPECIMEN HANDLING ROUTINE VENIPUNCTURE COMPREHEN METABOLIC PANEL 07336 016 MICROALBUMIN, QUANTITATIVE URINE CREATININE 24-Hour HEMOGLOBIN A1C With Estimation 16 TSH THYROID STIM HORMONE PSA, TOTAL COMPLETE CBC W/AUTO DIFF WBC Cholestrol Triglyceride And HDL LIPID PA BAM 15 Min Est OFFICE/OUTPATIENT VISIT GLUCOSE, BLOOD QUANT GLUCOSE, BLOOD QUANT 15 Min Est OFFICE/OUTPATIENT VISIT SPECIMEN HANDLING ROUTINE VENIPUNCTURE HEPATIC FUNCTION PANEL MICROALBUMIN, QUANTITATIVE URINE CREATININE 24-Hour HEMOGLOBIN A1C With Estimation 16 Cholestrol Triglyceride And HDL LIPID PA BAM COMPLETE CBC W/AUTO DIFF WBC HEMOGLOBIN A1C With Estimation 15 COMPREHEN METABOLIC PANEL 32976 015 MICROALBUMIN, QUANTITATIVE URINE CREATININE 24-Hour Cholestrol Triglyceride And HDL LIPID PA BAM PSA, TOTAL GLUCOSE, BLOOD QUANT X-RAY EXAM OF KNEE, 1 OR 2 15 Min Est OFFICE/OUTPATIENT VISIT GLUCOSE, BLOOD QUANT 15 Min Est OFFICE/OUTPATIENT VISIT GLUCOSE, BLOOD QUANT 15 Min Est OFFICE/OUTPATIENT VISIT GLUCOSE, BLOOD QUANT 15 Min Est OFFICE/OUTPATIENT VISIT GLUCOSE, BLOOD QUANT 15 Min Est OFFICE/OUTPATIENT VISIT GLUCOSE, BLOOD QUANT 15 Min Est OFFICE/OUTPATIENT VISIT Rvw all meds by Rxng prctionr or clin RP H docd Medication list documented in medical re cord (COA) Pain severity quantified no pain present GLUCOSE, BLOOD QUANT 15 Min Est OFFICE/OUTPATIENT VISIT FLU VACCINE NO PRESERV 3 & > PNEUMOCOCCAL VACCINE TD VACCINE >7 IM GLUCOSE, BLOOD QUANT 15 Min Est OFFICE/OUTPATIENT VISIT ROUTINE VENIPUNCTURE SPECIMEN HANDLING HEMOGLOBIN A1C With Estimation 13 COMPLETE CBC W/AUTO DIFF WBC PSA, TOTAL COMPREHEN METABOLIC PANEL 65906 013 Microalbumin, Random Urine 710363 Cholestrol Triglyceride And HDL LIPID PA BAM 15 Min Est OFFICE/OUTPATIENT VISIT 15 Min Est OFFICE/OUTPATIENT VISIT CMP12+LP+TP+TSH+5AC+CBC/D/PLT 918768 Aug COMPLETE CBC W/AUTO DIFF WBC 454879 Cholestrol Triglyceride And HDL LIPID PA BAM 590498 HEMOGLOBIN A1C With Estimation 838920 Fe SPECIMEN HANDLING 15 Min Est OFFICE/OUTPATIENT VISIT 15 Min Est OFFICE/OUTPATIENT VISIT 15 Min Est OFFICE/OUTPATIENT VISIT CMP12+LP+TP+TSH+5AC+CBC/D/PLT 130698 Apr COMPLETE CBC W/AUTO DIFF WBC 218340 Cholestrol Triglyceride And HDL LIPID PA BAM 732781 HEMOGLOBIN A1C With Estimation 104891 Oc SPECIMEN HANDLING Advance Directives Directive Yes / No Effective Date File Name No Information Encounters Encounter Description Practice Location Reason(s) For Visit Diagnoses Date Provider Providers Copied on Encounter [facility], [address], [place], [id number], [place] tel:[phone] [facility] No Information 5 Nik Sanchez. [address] [facility] [place], [id number] [address], [place], [address], [place]. tel:[phone] [facility], [address], [place], [id number], [place] tel:[phone] [facility] No Information 4 Nik Ortegas. [address] [address] [place], [id number] [address], [place], [address], [place]. [phone] 20-29 Min Est OFFICE/OUTPA TIENT VISIT [facility], [address], [place], [id number], [place] tel:[phone] [facility] hypertension (chief complaint)lab results (chief complaint)com ments (chief complaint) Body mass index [BMI] 30.0-30.9, adultType 2 diabetes mellitus without complicationsNeu trophilic leukocytosis 4 Nik Akersdys. [address] [facility] [place] Jamshid Ramirez, [id number] [address], [place], [address], [place]. tel:[phone] [facility], [address], [place], [id number], [place] tel:[phone] [facility] No Information 4 Nik Zavaletaa Laura. [address] [facility] [place] Jamshid Ramirez, [id number] [address], [place], [address], [place]. tel:[phone] [facility], [facility] [address], [id number], [place] tel:[phone] [facility] No Information 4 Zaragozaromulo Ortegas. [address] [facility] [place], [id number] [address], [place], [address], [place]. [phone] 20-29 Min Est OFFICE/OUTPA TIENT VISIT [facility], [address], [place], [id number], [place] tel:[phone] [facility] diabetes (chief complaint)hyp ertension (chief complaint) Body mass index [BMI] 30.0-30.9, adultType 2 diabetes mellitus without complicationsEss ential (primary) hypertensionNeut rophilic leukocytosis November- 4 Zaragozaheidi Sanchez. [address] [facility] [place], [id number] [address], [place], [address], [place]. tel:[phone] 20-29 Min Est OFFICE/OUTPA TIENT VISIT [facility], [facility] [address], [place], [id number], [place] tel:[phone] [facility] diabetes (chief complaint)hyp ertension (chief complaint)hyp erlipidemia (chief complaint)lab results (chief complaint) Body mass index [BMI] 31.0-31.9, adultOnychomycos isType 2 diabetes mellitus without complicationsEss ential (primary) hypertension Oct- 4 Zaragozaheidi Motta Laura. [address] [facility] [place], [id number] [address], [place], [address], [place]. [phone] 20-29 Min Est OFFICE/OUTPA TIENT VISIT [facility], [address], [place], [id number], [place] tel:[phone] [facility] Lab results (chief complaint)Ret inal exam results (chief complaint)Ref used flu vaccine (chief complaint)vitaly betes (chief complaint) Body mass index [BMI] 32.0-32.9, adultType 2 diabetes mellitus without complicationsBod y mass index [BMI] 32.0-32.9, adultOnychomycos is 3 Nik Sanchez. [address] [facility] [place], [id number] [address], [place], [address], [place]. tel:[phone] Referring Provider: Laura Motta, [address] [facility] [place] [id number] [address], [place], [address]. tel:[phone] [facility], [address], [place], [id number], [place] tel:[phone] [place] [facility] Type 2 diabetes mellitus without complications 3 Nik Sanchez. [address] [facility] [place], [id number] [address], [place], [address], [place]. tel:[phone] Referring Provider: Laura Zaragoza Kalia, [address] [address] [place] [id number] [address], [place], [address]. tel:[phone] 20-29 Min Est OFFICE/OUTPA TIENT VISIT [facility], [facility] [address], [place], [id number], [place] tel:[phone] [facility] diabetes (chief complaint)hyp ertension (chief complaint)lab results (chief complaint) Body mass index [BMI] 31.0-31.9, adultType 2 diabetes mellitus without complicationsMix ed hyperlipidemiaHy perkalemiaEssent ial (primary) hypertensionOnyc homycosis 3 Nik Sanchez. [address] [facility] [place], [id number] [address], [place], [address], [place]. tel:[phone] Referring Provider: Laura Motta, [address] R[address] [place] [id number] [address], [place], [address]. tel:[phone] 20-29 Min Est OFFICE/OUTPA TIENT VISIT [facility], [facility] [address], [place], [id number], [place] tel:[phone] [facility] Discuss test results (chief complaint)Fol low Up of Diabetes (chief complaint)hyp ertension (chief complaint) Body mass index [BMI] 31.0-31.9, adultType 2 diabetes mellitus without complicationsHyp erkalemiaMixed hyperlipidemiaEs sential hypertension 3 Nik Sanchez. [address] R[facility] [place], [id number] [address], [place], [address], [place]. tel:[phone] Referring Provider: Laura Motta, [address] Rach[facility] [place] [id number] [address], [place], [address]. tel:[phone] [facility], [address], [place], [id number], [place] tel:[phone] [facility] Type 2 diabetes mellitus without complications 2 Errol De La Torre. [address] [place], [address], [place]. tel:[phone] Referring Provider: Wil Norton [address] [place], [facility]. tel:[phone] 30-39 Min Est OFFICE/OUTPA TIENT VISIT [facility], [address], [place], [id number], [place] tel:[phone] [facility] lab results (chief complaint)DM f/u (chief complaint) Type 2 diabetes mellitus without complicationsEss ential (primary) hypertensionOthe r hyperlipidemiaBo dy mass index [BMI] 30.0-30.9, adultBody mass index [BMI] 30.0-30.9, adult Feb- 2 Errol De La Torre. [address] [place], [address], [place]. tel:[phone] [facility], [address], [place], [id number], [place] tel:[phone] [facility] No Information 2 Errol De La Torre. [address] [place], [address], [place]. tel:[phone] 30-39 Min Est OFFICE/OUTPA TIENT VISIT [facility], [address], [place], [id number], [place] tel:[phone] [facility] lab results (chief complaint) Type 2 diabetes mellitus without complicationsBod y mass index [BMI] 31.0-31.9, adultOther hyperlipidemiaEs sential (primary) hypertension 2 Errol De La Torre. [address] [place], [address], [place]. tel:[phone] Referring Provider: Wil Norton [address] [place], [address]. tel:[phone] 20-29 Min Est OFFICE/OUTPA TIENT VISIT [facility], [facility] [address], [place], [id number], tel:[phone] [facility] Discuss test results (chief complaint) Body mass index (BMI) 32.0-32.9, adultType 2 diabetes mellitus without complicationsOth er hyperlipidemiaEs sential (primary) hypertension Deyvi-0 1 Errol De La Torre. [address] [place], [address], [place]. tel:[phone] 20-29 Min Est OFFICE/OUTPA TIENT VISIT [facility], [address] [place] [address], [id number], [place] tel:[phone] [facility] Follow Up of diabetes (chief complaint) Type 2 diabetes mellitus without complicationsBod y mass index (BMI) 32.0-32.9, adultBody mass index (BMI) 32.0-32.9, adultHyperlipide miaEssential (primary) hypertension Oct- 1 Errol Weeks [address] [place], [address], [place]. tel:[phone] Referring Provider: [place], [address]. tel:[phone] 25 Min Est OFFICE/OUTPA TIENT VISIT [facility], [facility] [address], [place], [id number], [place] tel:[phone] [facility] hypertension (chief complaint) Essential (primary) hypertensionOthe r hyperlipidemiaTy pe 2 diabetes mellitus without complicationsBod y mass index (BMI) 32.0-32.9, adult Nov-0 0 Errol Weeks [address] [place], [address], [place]. tel:[phone] Referring Provider: Umair San, [place], [address]. tel:[phone] 25 Min Est OFFICE/OUTPA TIENT VISIT [facility], [facility] [address], [place], [id number], tel:[phone] [facility] Follow Up of Diabetes (chief complaint)com ments (chief complaint) Body mass index (BMI) 32.0-32.9, adultType 2 diabetes mellitus without complicationsEss ential (primary) hypertension Oct- 3-202 0 Errol Weeks [address] [place], [address], [place]. tel:[phone] Referring Provider: [place], [address]. tel:[phone] 15 Min Est OFFICE/OUTPA TIENT VISIT [facility], [facility] [address], [place], [id number], tel:[phone] [facility] Follow Up of Diabetes (chief complaint) Body mass index (BMI) 31.0-31.9, adultEssential (primary) hypertensionType 2 diabetes mellitus without complicationsOth er hyperlipidemia Sep-0 -202 0 Errol Weeks [address] [place], [address], [place]. tel:[phone] 25 Min Est OFFICE/OUTPA TIENT VISIT [facility], [address], [place], [id number], [place] tel:[phone] [facility] Follow Up of Diabetes (chief complaint) Body mass index (BMI) 30.0-30.9, adultType 2 diabetes mellitus without complicationsBod y mass index (BMI) 30.0-30.9, adultEssential (primary) hypertension Sep-0 2-202 0 Errol Weeks [address] [place], [address], [place]. tel:[phone] Referring Provider: [place], [address]. tel:[phone] 25 Min Est OFFICE/OUTPA TIENT VISIT [facility], [facility] [address], [place], [id number], [place] tel:[phone] [facility] hypertension (chief complaint) Type 2 diabetes mellitus without complication, without long-term current use of insulinEssential (primary) hypertensionBody mass index (BMI) 30.0-30.9, adultBody mass index (BMI) 30.0-30.9, adult 0 Errol De La Torre. [address] [place], [address], [place]. tel:[phone] Referring Provider: [place], [address]. tel:[phone] 25 Min Est OFFICE/OUTPA TIENT VISIT [facility], [address] [place] [address], [id number], [place] tel:[phone] [facility] diabetes (chief complaint) Body mass index (BMI) 31.0-31.9, adultType 2 diabetes mellitus without complicationsBod y mass index (BMI) 31.0-31.9, adultEssential (primary) hypertensionOthe r hyperlipidemia 0 Errol De La Torre. [address] [place], [address], [place]. tel:[phone] 25 Min Est OFFICE/OUTPA TIENT VISIT [facility], [facility] [address], [place], [id number], [place] tel:[phone] [facility] diabetes (chief complaint) Type 2 diabetes mellitus without complication, without long-term current use of insulinEssential (primary) hypertensionOthe r hyperlipidemiaBo dy mass index (BMI) 31.0-31.9, adultBody mass index (BMI) 31.0-31.9, adult 0 Errol De La Torre. [address] [place], [address], [place]. tel:[phone] Referring Provider: [place], [address]. tel:[phone] 15 Min Est OFFICE/OUTPA TIENT VISIT [facility], [facility] [address], [place], [id number], [phone] [facility] DM/HTN (chief complaint)Rx refills (chief complaint) Body mass index (BMI) 31.0-31.9, adultType 2 diabetes mellitus without complicationsBod y mass index (BMI) 31.0-31.9, adultEssential (primary) hypertensionAge- related cataract of both eyes, unspecified age-related cataract type 0 Meredith Rodas. [address] [place], [address], [place]. [phone] Referring Provider: Adrianna Harper, [address] [place], [address]. tel:[phone] [facility], [facility] [address], [place], [id number], [place] tel:[phone] [facility] diabetes (chief complaint) Type 2 diabetes mellitus without complicationsBod y mass index (BMI) 31.0-31.9, adultBody mass index (BMI) 31.0-31.9, adultEssential hypertensionMixe d hyperlipidemia 201 9 Klelie Ma. [address] [place], [address], [place]. [phone] Referring Provider: Francesca Hopkins [address] [address] [place], [address]. tel:[phone] 15 Min Est OFFICE/OUTPA TIENT VISIT [facility], [address], [place], [id number], [place] tel:[phone] [facility] Follow Up of diabetes (chief complaint) Type 2 diabetes mellitus with hyperglycemiaEss ential (primary) hypertensionType 2 diabetes mellitus without complications 3 0-201 9 [facility]. [address] [facility], [id number] [address], [place], [id number] , [place]. tel:[phone] 25 Min Est OFFICE/OUTPA TIENT VISIT [facility], [facility] [address], [place], [id number], tel:[phone] [facility] diabetes (chief complaint)hyp ertension (chief complaint) Body mass index (BMI) 31.0-31.9, adultType 2 diabetes mellitus without complicationsBod y mass index (BMI) 31.0-31.9, adultEssential (primary) hypertensionAort ic valve stenosis, etiology of cardiac valve disease unspecified 9 Jaden Jones. [address], [address], [place], [address], [place]. tel:[phone] [facility], [address] [place] [address], [id number], tel:[phone] [facility] Essential (primary) hypertensionEnco unter for exam of eye 9 [facility]. [address] [place] [address] [address], [id number] [address], [place] , [place], [id number] , [place]. tel:[phone] 15 Min Est OFFICE/OUTPA TIENT VISIT [facility], [facility] [address], [place], [id number], [place] tel:[phone] [facility] Follow Up of hypertension (chief complaint) Essential (primary) hypertensionBody mass index (BMI) 30.0-30.9, adult 9 [facility]. [address] [place] [address] [address], [id number] [address], [place] , [place], [id number] , [place]. tel:[phone] 15 Min Est OFFICE/OUTPA TIENT VISIT [facility], [facility] [address], [place], [id number], [place] tel:[phone] [facility] diabetes (chief complaint) Type 2 diabetes mellitus without complicationsEss ential (primary) hypertensionHype rlipidemia 9 [facility]. [address] [place] [address] [address], [id number] [address], [place] , [place], [id number] , [place]. tel:[phone] 15 Min Est OFFICE/OUTPA TIENT VISIT [facility], [address], [place], [id number], [place] tel:[phone] [facility] hypertension (chief complaint)vitaly mickies (chief complaint) Type 2 diabetes mellitus with hyperglycemiaHyp erlipidemiaEssen tial (primary) hypertensionBody mass index (BMI) 30.0-30.9, adultType 2 diabetes mellitus without complications 8 [facility]. [address], [id number] [address], [place] , [place], [id number] , [place]. tel:[phone] 15 Min Est OFFICE/OUTPA TIENT VISIT [facility], [address], [place], [id number], [place] tel:[phone] [facility] diabetes (chief complaint) Type 2 diabetes mellitus without complicationsEss ential (primary) hypertensionHype rlipidemia 8 [facility]. [address], [id number] [address], [place] , [place], [id number] , [place]. tel:[phone] [facility], [address], [place], [id number], [place] tel:[phone] [facility] Type 2 diabetes mellitus with hyperglycemia 8 [facility]. [address], [id number] [address], [place] , [place], [id number] , [place]. tel:[phone] 15 Min Est OFFICE/OUTPA TIENT VISIT [facility], [address], [place], [id number], [place] tel:[phone] [facility] Diabetes (chief complaint) Type 2 diabetes mellitus with hyperglycemiaEss ential (primary) hypertensionHype rlipidemiaBody mass index (BMI) 30.0-30.9, adultType 2 diabetes mellitus without complicationsBod y mass index (BMI) 30.0-30.9, adult November-0 -201 8 [facility]. [address], [id number] [address], [place] , [place], [id number] , [place]. tel:[phone] 15 Min Est OFFICE/OUTPA TIENT VISIT [facility], [address], [place], [id number], tel:[phone] [facility] diabetes (chief complaint) Essential (primary) hypertensionType 2 diabetes mellitus with hyperglycemiaHyp erlipidemiaType 2 diabetes mellitus without complicationsBod y mass index (BMI) 30.0-30.9, adultBody mass index (BMI) 30.0-30.9, adult 8 [facility]. [address], [id number] [address], [place], [place], [id number] , [place]. tel:[phone] [facility], [facility] [address], [place], [address], [place] tel:[phone] [facility] Type 2 diabetes mellitus without complications 7 [facility]. [address], [id number] [address], [place], [id number] , [place]. tel:[phone] 15 Min Est OFFICE/OUTPA TIENT VISIT [facility], [facility] [address], [place], [id number], [place] tel:[phone] [facility] Follow Up of 3mths DM (chief complaint)ref use flu vacc (chief complaint) Type 2 diabetes mellitus without complicationsHyp erlipidemiaEssen tial (primary) hypertension 7 [facility]. [address], [id number] [address], [place], [place], [id number] , [place]. tel:[phone] Referring Provider: Chiqui Cohen, [address], [place], [address] . tel:[phone] 25 Min Est OFFICE/OUTPA TIENT VISIT [facility], [facility] [address], [place], [id number], tel:[phone] [facility] diabetes (chief complaint)hyp ertension (chief complaint) Body mass index (BMI) 32.0-32.9, adultType 2 diabetes mellitus with hyperglycemiaEss ential (primary) hypertensionHype rtriglyceridemia Type 2 diabetes mellitus without complications Jose Wren. [address] [place] [address], [id number] 200CD, [place], [place], [address], [place]. tel:[phone] Referring Provider: Holger Garcia [address] [place] [address] [id number], [place], [address]. tel:[phone] 25 Min Est OFFICE/OUTPA TIENT VISIT [facility], [address] [place] [address], [id number], [place] tel:[phone] [facility] diabetes (chief complaint)hyp ertension (chief complaint) Type 2 diabetes mellitus without complicationsOth er specified counselingObesit y, unspecifiedPtery gium, bilateralEssenti al (primary) hypertension 7 Jose Wren. [address] [place] [address], [id number] 200CD, [place], [place], [address], [place]. tel:[phone] Referring Provider: Holger Garcia [address] [place] [address] [id number] 00CD, [place], [place], [address]. tel:[phone] 15 Min Est OFFICE/OUTPA TIENT VISIT [address], [id number], [place] tel:[phone] [facility] DM/HTN (chief complaint) Type 2 diabetes mellitus with hyperglycemiaEss ential (primary) hypertensionType 2 diabetes mellitus without complications Soren Gonzales. [address], [id number] 200CD, [place], [id number] , [place]. tel:[phone] Referring Provider: Christian Doty [address] [id number] 00CD, [place], [address] . tel:[phone] [facility], [address] [place] [address], [id number], [place] tel:[phone] [facility] Unspecified osteoarthritis, unspecified site 7 Soren Gonzales. [address], [id number] 200CD, [place], [place], [id number] , [place]. tel:[phone] 15 Min Est OFFICE/OUTPA TIENT VISIT [facility], [facility] [place], [id number], [place] tel:[phone] [facility] Diabetes (chief complaint) Type 2 diabetes mellitus with hyperglycemiaEss ential (primary) hypertensionHype rlipidemiaObesit y, unspecifiedType 2 diabetes mellitus without complicationsArt hritis 7 [facility]. [address] [facility] [address], [id number] 200CD, [place] , [place], [id number] , [place]. tel:[phone] 15 Min Est OFFICE/OUTPA TIENT VISIT [facility], [facility] [place], [place], [id number], [place] tel:[phone] [facility] DM/HTN (chief complaint) Body mass index (BMI) 32.0-32.9, adultType 2 diabetes mellitus without complicationsEss ential (primary) hypertension 6 [facility]. [address] [facility] [address], [id number] 200CD, [place], [place], [id number] , [place]. tel:[phone] 15 Min Est OFFICE/OUTPA TIENT VISIT [facility], [address] [place] [address], [id number], [place] tel:[phone] [facility] refill (chief complaint) Type 2 diabetes mellitus with hyperglycemiaEss ential (primary) hypertensionHype rlipidemiaType 2 diabetes mellitus without complications [facility]. [address] [facility] [address], [id number] 200CD, [place], [place], [id number] , [place]. tel:[phone] 15 Min Est OFFICE/OUTPA TIENT VISIT [facility], [address] [place], [place], [id number], [place] tel:[phone] [facility] diabetes (chief complaint) Type 2 diabetes mellitus without complicationsBod y mass index (BMI) 32.0-32.9, adult 6 Jean Jin [address] [place] [address] 500, [id number] 200CD, [place], [address], [place]. [phone] [facility], [facility] [place], [place], [id number], [place] tel:[phone] [facility] No Information 0 5 [facility]. [address], [id number] 200CD, [place] , [place], [id number] , [place]. [phone] 15 Min Est OFFICE/OUTPA TIENT VISIT [facility], [facility] [place], [place], [id number], [place] tel:[phone] [facility] diabetes (chief complaint) Knee painDiabetes Mellitus Type 2, UncomplicatedBod y Mass Index 31.0-31.9, adult 5 [facility]. [address], [id number] 200CD, [place] , [place], [id number] , [place]. tel:[phone] 15 Min Est OFFICE/OUTPA TIENT VISIT [facility], [facility] [place], [place], [id number], [place] [phone] [facility] diabetes (chief complaint) Diabetes Mellitus Type 2, UncomplicatedBod y Mass Index 31.0-31.9, adult 5 [facility]. [address], [id number] 200CD, [place] , [place], [id number] , [place]. [phone] [facility], [facility] [place], [id number], [place] tel:[phone] [facility] Diabetes Mellitus Type 2, UncomplicatedHyp ertension, Benign 5 [facility]. [address], [id number] 200CD, [place] , [place], [address] , [place]. [phone] 15 Min Est OFFICE/OUTPA TIENT VISIT [facility], [address] [place] [address], [id number], [place] tel:[phone] [facility] diabetes (chief complaint) Diabetes Mellitus, Type 2, UncontrolledDiab etes Mellitus Type 2, UncomplicatedBod y Mass Index 30.0-30.9, adult Sep-3 1-201 5 [facility]. [address], [id number] 200CD, [place] , [place], [address] , [place]. tel:[phone] [facility], [facility] [place], [place], [id number], [place] tel:[phone] [facility] Diabetes Mellitus, Type 2, Uncontrolled Sep- 0- 5 [facility]. [address], [id number] 200CD, [place] , [place], [address] , [place]. [phone] 15 Min Est OFFICE/OUTPA TIENT VISIT [facility], [facility] [place], [place], [id number], [place] tel:[phone] [facility] diabetes (chief complaint) Diabetes Mellitus Type 2, UncomplicatedDia betes Mellitus, Type 2, UncontrolledDiab etes Mellitus, Type 2, UncontrolledBody Mass Index 32.0-32.9, adult 7- 5 [facility]. [address], [id number] 200CD, [place] , [place], [id number] , [place]. [phone] 15 Min Est OFFICE/OUTPA TIENT VISIT [facility], [facility] [place], [place], [id number], [place] tel:[phone] [facility] diabetes (chief complaint) Diabetes Mellitus Type 2, UncomplicatedHyp ertension, BenignDiabetes Mellitus, Type 2, UncontrolledDiab etes Mellitus, Type 2, UncontrolledBody Mass Index 31.0-31.9, adult 0-201 4 [facility]. [address], [id number] 200CD, [place] , [place], [address] , [place]. tel:[phone] 15 Min Est OFFICE/OUTPA TIENT VISIT [facility], [facility] [place], [place], [id number], [place] tel:[phone] [facility] diabetes (follow up) (chief complaint) Diabetes Mellitus, Type 1, UncomplicatedDia betes Mellitus Type 2, UncomplicatedHyp ertension, Benign 4 Doty Gonzales. [address], [id number] 200CD, [place], [place], [address] , [place]. tel: [phone] 15 Min Est OFFICE/OUTPA TIENT VISIT [facility], [address] [place], [place], [id number], [place] tel:[phone] [facility] meds refill (chief complaint) Diabetes Mellitus, Type 2, UncontrolledHype rtension, BenignInfluenza VaccinePneumonia VaccineNEED FOR PROPHYLACTIC VACCINATION AND INOCULATION AGAINST TETANUS-DIPHTHER IA [TD] (DT) 4 Doty Gonzales. [address], [id number] 200CD, [place], [place], [address] , [place]. tel: [phone] 15 Min Est OFFICE/OUTPA TIENT VISIT [facility], [address] [place], [place], [id number], [place] tel:[phone] [facility] diabetes (chief complaint) Diabetes Mellitus, Type 2, UncontrolledHype rtension, BenignDiabetes Mellitus Type 2, UncomplicatedNoc turia 3 Doty Gonzales. [address], [id number] 200CD, [place], [place], [address] , [place]. tel: [phone] 15 Min Est OFFICE/OUTPA TIENT VISIT [facility], [address] [place], [place], [id number], [place] [phone] [facility] No Information 2 [facility]. [address], [id number] 200CD, [place], [place], [address] , [place]. tel:[phone] 15 Min Est OFFICE/OUTPA TIENT VISIT [facility], [address] [place], [place], [id number], [place] [phone] [facility] No Information 2 Doty Gonzales. [address], [id number] 200CD, [place] , [place], [address] , [place]. [phone] 15 Min Est OFFICE/OUTPA TIENT VISIT [facility], [address] [facility], [place], [place], [id number], [place] tel:[phone] [facility] No Information 1 Soren Fordph. [address] [facility] [address], [id number] 200CD, [place], [place], [address] , [place]. tel:[phone] 15 Min Est OFFICE/OUTPA TIENT VISIT [facility], [address] [facility], [place], [place], [address], [place] tel:[phone] [facility] No Information 1 [facility]. [address], [id number] 200CD, [place], [address], [place]. [phone] 15 Min Est OFFICE/OUTPA TIENT VISIT [facility], [address] [facility], [place], [place], [address], [place] tel:[phone] [facility] No Information 1 [facility]. [address] [facility] [address], [id number] 200CD, [place], [place], [address] , [place]. [phone] Family History Family Member Type Diagnosis Age At Onset Family h/o Problem (finding) Alive and well Immunizations Vaccine Date Status Comments Tdap administered Source: New Imm unization Record Shingrix administered Source: New Imm unization Record PCV 20 administered Source: New Imm unization Record COVID-19 mRNA bivalent booster 12+ administered Source: Other Regist ry COVID-19, mRNA,LNP-S,PF administered Sour ce: Other Registry COVID-19, mRNA,LNP-S,PF administered Sour ce: Other Registry COVID-19, mRNA,LNP-S,PF administered Sour ce: Other Registry Influenza, seasonal, injectable not administered Source: New Immuniza tion Record Tdap not administered Source: New Immunization Record Pneumo (2 yrs or older)(PPV) not administ ered Source: New Immunization Record Zoster not administered Source: New Immunization Record Td, preservative free, (7 yrs and older) administered Source: New Immuniza tion Record flu (split) preservative free, 3 yrs or older administered Source: New Immuniz ation Record Pneumo (2 yrs or older)(PPV) administered Source: New Immunization Record Payers Payer name Insurance type Covered constitution party ID Authoriza tion(s) [facility] [id number] [facility] [id number] 00 Code 18 [facility] [id number] [employer] PPS [id number] IE Direct Medical CI [id number] Code 18 [facility] [id number] Social History Type Description Quantity Date Captured Comments Alcohol Use Details Unknown Caffeine Use Details Unknown Tobacco Use Status No Information Smoking Status No Information Sex Male Sexual Orientation Straight (not lesbian or ham) Gender Identity Male Chief Complaint And Reason For Visit No Information Reason For Referral Reason For Referral No Information Plan Of Treatment Date Type Action Status Goal Hemoglobin A1C. Due on due Goal Foot exam. Due on due Goal Depression scree jimmie. Due on due Goal GFR. Due on due Goal CMP. Due on due Goal ASCVD 10 year risk. Due on due Goal Dental exam. Due on 024 due Goal Fundoscopic photo. Due on due Goal Urinalysis. Due on 24 due Goal Urine microalbumin. Due on due Goal PSA. Due on due Goal FIT. Due on due Goal Alcohol Screenin g/AUDIT-C. Due on due Goal Td vaccine. Due on 33 due Goal FOBT. Due on due Goal FIT-DNA. Due on due Goal Influenza vaccine. Due on due Goal Zoster vaccine (1st) due Goal Hepatitis B Viru s (Profile ). Due on due Goal Colonoscopy. Due on due Goal Drug Screening/D AST-10. Due on due Goal Tdap due Goal CT-Colonography. Due on due Goal Zoster vaccine ( 2nd). Due on due Goal Hepatitis C scre ening. Due on due Goal Unhealthy drug u se screening. Due on due Goal HIV screen. Due on due Goal Pneumococcal vaccine due Goal ECG. Due on due Goal Retinal Exam. Due on 2023 due Goal TSH. Due on due Goal Lipid Panel. Due on due Goal Dietary manageme nt education, guidance, and counseling completed Goal TSH. Due on due Goal Hepatitis C scre ening. Due on due Goal Influenza vaccine. Due on due Goal FIT. Due on due Goal FIT-DNA. Due on due Goal Zoster vaccine ( 2nd). Due on due Goal CT-Colonography. Due on due Goal Hepatitis B Viru s (Profile ). Due on due Goal Tdap due Goal Alcohol Screenin g/AUDIT-C. Due on due Goal Drug Screening/D AST-10. Due on due Goal PSA. Due on due Goal Td vaccine. Due on 33 due Goal HIV screen. Due on due Goal Zoster vaccine (1st) due Goal FOBT. Due on due Goal Unhealthy drug u se screening. Due on due Goal Colonoscopy. Due on due Goal Retinal Exam. Due on 2023 due Goal Lipid Panel. Due on 025 due Goal GFR. Due on due Goal Foot exam. Due on due Goal Fundoscopic photo. Due on due Goal CMP. Due on due Goal Urine microalbumin. Due on due Goal ASCVD 10 year risk. Due on due Goal Dental exam. Due on due Goal Hemoglobin A1C. Due on due Goal Depression scree jimmie. Due on due Goal Pneumococcal vaccine due Goal ECG. Due on due Goal Urinalysis. Due on due Goal ECG. Due on due Goal Urine microalbumin. Due on due Goal Depression scree jimmie. Due on due Goal ASCVD 10 year risk. Due on due Goal Hemoglobin A1C. Due on due Goal CMP. Due on due Goal Dental exam. Due on due Goal Foot exam. Due on due Goal FOBT. Due on due Goal CT-Colonography. Due on due Goal Drug Screening/D AST-10. Due on due Goal Alcohol Screenin g/AUDIT-C. Due on due Goal Hepatitis B Viru s (Profile ). Due on due Goal Unhealthy drug u se screening. Due on due Goal Tdap due Goal Pneumococcal vaccine due Goal TSH. Due on due Goal Retinal Exam. Due on 2023 due Goal Lipid Panel. Due on due Goal FIT-DNA. Due on due Goal Colonoscopy. Due on due Goal FIT. Due on due Goal PSA. Due on due Goal Zoster vaccine ( 2nd). Due on due Goal HIV screen. Due on due Goal Influenza vaccine. Due on due Goal Td vaccine. Due on 33 due Goal Hepatitis C scre ening. Due on due Goal Zoster vaccine (1st) due Goal Urinalysis. Due on due Goal Fundoscopic photo. Due on due Goal GFR. Due on due Goal Dietary manageme nt education, guidance, and counseling completed Goal Dietary manageme nt education, guidance, and counseling completed Goal ASCVD 10 year risk. Due on A due Goal GFR. Due on due Goal Foot exam. Due on due Goal Depression scree jimmie. Due on due Goal Fundoscopic photo. Due on due Goal Hemoglobin A1C. Due on due Goal CMP. Due on due Goal Dental exam. Due on 024 due Goal FIT-DNA. Due on due Goal Hepatitis C scre ening. Due on due Goal CT-Colonography. Due on due Goal Alcohol Screenin g/AUDIT-C. Due on due Goal HIV screen. Due on due Goal Zoster vaccine (1st) due Goal Hepatitis B Viru s (Profile ). Due on due Goal Influenza vaccine. Due on due Goal Drug Screening/D AST-10. Due on due Goal FIT. Due on due Goal Td vaccine. Due on 33 due Goal FOBT. Due on due Goal Colonoscopy. Due on 024 due Goal Tdap due Goal Zoster vaccine ( ). Due on due Goal PSA. Due on due Goal Unhealthy drug u se screening. Due on due Goal Pneumococcal vaccine due Goal ECG. Due on due Goal Urinalysis. Due on 24 due Goal Retinal Exam. Due on 2023 due Goal TSH. Due on due Goal Lipid Panel. Due on 025 due Goal Urine microalbumin. Due on due Goal Dietary manageme nt education, guidance, and counseling completed Goal TSH. Due on due Goal CT-Colonography. Due on due Goal PSA. Due on due Goal Hepatitis B Viru s (Profile ). Due on due Goal Alcohol Screenin g/AUDIT-C. Due on due Goal HIV screen. Due on due Goal FIT. Due on due Goal Tdap due Goal FOBT. Due on due Goal Drug Screening/D AST-10. Due on due Goal Td vaccine. Due on 33 due Goal Zoster vaccine (1st) due Goal Hepatitis C scre ening. Due on due Goal Colonoscopy. Due on due Goal FIT-DNA. Due on due Goal Unhealthy drug u se screening. Due on due Goal Pneumococcal vaccine due Goal ECG. Due on due Goal Lipid Panel. Due on 024 due Goal Hemoglobin A1C. Due on due Goal Depression scree jimmie. Due on due Goal GFR. Due on due Goal ASCVD 10 year risk. Due on O due Goal CMP. Due on due Goal Urine microalbumin. Due on F due Goal Foot exam. Due on due Goal Dental exam. Due on 023 due Goal Fundoscopic photo. Due on Oc due Goal Urinalysis. Due on due Goal Retinal Exam. Due on 2023 due Goal Dietary manageme nt education, guidance, and counseling completed Goal Hepatitis B Viru s (Profile ). Due on due Goal Td vaccine. Due on due Goal Tdap. Due on due Goal Unhealthy drug u se screening. Due on due Goal Hepatitis C scre ening. Due on due Goal Zoster vaccine ( ). Due on due Goal Colonoscopy. Due on 023 due Goal Alcohol Screenin g/AUDIT-C. Due on due Goal HIV screen. Due on due Goal FIT. Due on due Goal FOBT. Due on due Goal CT-Colonography. Due on due Goal Pneumococcal vaccine due Goal ECG. Due on due Goal Urinalysis. Due on due Goal Retinal Exam. Due on 2022 due Goal TSH. Due on due Goal Lipid Panel. Due on 024 due Goal Urine microalbumin. Due on due Goal Depression scree jimmie. Due on due Goal ASCVD 10 year risk. Due on A due Goal GFR. Due on due Goal Foot exam. Due on due Goal Hemoglobin A1C. Due on due Goal CMP. Due on due Goal Fundoscopic photo. Due on due Goal Dental exam. Due on due Goal Drug Screening/D AST-10. Due on due Goal FIT-DNA. Due on due Goal PSA. Due on due Goal CT-Colonography. Due on due Goal Colonoscopy. Due on due Goal Td vaccine. Due on due Goal Pneumococcal vaccine due Goal Urinalysis. Due on due Goal ECG. Due on due Goal Retinal Exam. Due on 2022 due Goal TSH. Due on due Goal Lipid Panel. Due on 024 due Goal Dental exam. Due on due Goal Urine microalbumin. Due on due Goal CMP. Due on due Goal GFR. Due on due Goal Depression scree jimmie. Due on due Goal Hemoglobin A1C. Due on due Goal Foot exam. Due on due Goal Fundoscopic photo. Due on due Goal ASCVD 10 year risk. Due on A due Goal Drug Screening/D AST-10. Due on due Goal Unhealthy drug u se screening. Due on due Goal Hepatitis C scre ening. Due on due Goal FIT. Due on due Goal Hepatitis B Viru s (Profile ). Due on due Goal FIT-DNA. Due on due Goal Tdap. Due on due Goal Zoster vaccine ( ). Due on due Goal HIV screen. Due on due Goal PSA. Due on due Goal Alcohol Screenin g/AUDIT-C. Due on due Goal Dietary manageme nt education, guidance, and counseling completed Goal CT-Colonography. Due on due Goal Unhealthy drug u se screening. Due on due Goal Influenza vaccine. Due on due Goal FIT. Due on due Goal Colonoscopy. Due on 023 due Goal Drug Screening/D AST-10. Due on due Goal Td vaccine. Due on 24 due Goal Tdap. Due on due Goal Lipid panel. Due on 024 due Goal Urinalysis. Due on due Goal ECG. Due on due Goal Zoster vaccine ( ). Due on due Goal Pneumococcal vac cine. Due on due Goal Alcohol Screenin g/AUDIT-C. Due on due Goal GFR. Due on due Goal Hemoglobin A1C. Due on due Goal Depression scree jimmie. Due on due Goal Retinal Exam. Due on 2022 due Goal Urine microalbumin. Due on due Goal CMP. Due on due Goal ASCVD 10 year risk. Due on M due Goal Fundoscopic photo. Due on Ma due Goal Dental exam. Due on 023 due Goal Foot exam. Due on due Goal FIT-DNA. Due on due Goal PSA. Due on due Goal Hepatitis C scre ening. Due on due Goal Dietary manageme nt education, guidance, and counseling completed Goal Foot exam. Due on due Goal CMP. Due on due Goal Retinal Exam. Due on 2019 due Goal Hemoglobin A1C. Due on due Goal Urine microalbumin. Due on due Goal ASCVD 10 year risk. Due on A due Goal Fundoscopic photo. Due on due Goal GFR. Due on due Goal Colonoscopy. Due on 022 due Goal PSA. Due on due Goal Drug Screening/D AST-10. Due on due Goal Influenza vaccine. Due on due Goal FIT-DNA. Due on due Goal CT-Colonography. Due on due Goal Pneumococcal vaccine due Goal FIT. Due on due Goal Td vaccine. Due on due Goal Tdap. Due on due Goal Alcohol Screenin g/AUDIT-C. Due on due Goal Zoster vaccine ( ). Due on due Goal Lipid panel. Due on due Goal Urinalysis. Due on due Goal ECG. Due on due Goal Depression scree jimmie. Due on due Goal Dental exam. Due on due Goal Fundoscopic photo. Due on due Goal ASCVD 10 year risk. Due on due Goal Depression scree jimmie. Due on due Goal Retinal Exam. Due on 2019 due Goal CMP. Due on due Goal Hemoglobin A1C. Due on due Goal Dental exam. Due on due Goal Tdap. Due on due Goal Drug Screening/D AST-10. Due on due Goal FIT. Due on due Goal PSA. Due on due Goal Td vaccine. Due on due Goal Colonoscopy. Due on due Goal Influenza vaccine. Due on due Goal Alcohol Screenin g/AUDIT-C. Due on due Goal Pneumococcal vaccine due Goal FIT-DNA. Due on due Goal CT-Colonography. Due on due Goal Zoster vaccine ( ). Due on due Goal Lipid panel. Due on 023 due Goal ECG. Due on due Goal Urinalysis. Due on due Goal GFR. Due on due Goal Urine microalbumin. Due on due Goal Foot exam. Due on due Goal Dietary manageme nt education, guidance, and counseling completed Goal Zoster vaccine ( ). Due on due Goal Drug Screening/D AST-10. Due on due Goal Alcohol Screenin g/AUDIT-C. Due on due Goal Influenza vaccine. Due on due Goal Td vaccine. Due on 24 due Goal Lipid panel. Due on 023 due Goal Urinalysis. Due on due Goal ECG. Due on due Goal Depression scree jimmie. Due on due Goal CMP. Due on due Goal Urine microalbumin. Due on due Goal ASCVD 10 year risk. Due on due Goal GFR. Due on due Goal Fundoscopic photo. Due on due Goal Foot exam. Due on due Goal Retinal Exam. Due on 2019 due Goal Dental exam. Due on due Goal Hemoglobin A1C. Due on due Goal Colonoscopy. Due on due Goal FIT-DNA. Due on due Goal FIT. Due on due Goal Pneumococcal vaccine due Goal PSA. Due on due Goal CT-Colonography. Due on due Goal Tdap. Due on due Goal Alcohol Screenin g/AUDIT-C. Due on due Goal Pneumococcal vaccine due Goal FIT. Due on due Goal FIT-DNA. Due on due Goal Zoster vaccine ( ). Due on due Goal Drug Screening/D AST-10. Due on due Goal Tdap. Due on due Goal Influenza vaccine. Due on due Goal PSA. Due on due Goal CT-Colonography. Due on due Goal Td vaccine. Due on 24 due Goal Lipid panel. Due on due Goal ECG. Due on due Goal Urinalysis. Due on due Goal Retinal Exam. Due on 2019 due Goal CMP. Due on due Goal Urine microalbumin. Due on due Goal Hemoglobin A1C. Due on due Goal Fundoscopic photo. Due on due Goal Dental exam. Due on due Goal Foot exam. Due on due Goal GFR. Due on due Goal ASCVD 10 year risk. Due on due Goal Depression scree jimmie. Due on due Goal Colonoscopy. Due on due Goal Tobacco cessation counseling completed Goal Dietary manageme nt education, guidance, and counseling completed Goal Lipid panel. Due on 022 due Goal ECG. Due on due Goal Urinalysis. Due on due Goal Drug Screening/D AST-10. Due on due Goal Pneumococcal vaccine due Goal Alcohol Screenin g/AUDIT-C. Due on due Goal Colonoscopy. Due on due Goal Zoster vaccine ( ). Due on due Goal Tdap. Due on due Goal PSA. Due on due Goal Td vaccine. Due on due Goal Hemoglobin A1C. Due on due Goal Fundoscopic photo. Due on due Goal GFR. Due on due Goal CMP. Due on due Goal Foot exam. Due on due Goal Urine microalbumin. Due on due Goal Dental exam. Due on due Goal Depression scree jimmie. Due on due Goal Retinal Exam. Due on 2019 due Goal Dietary manageme nt education, guidance, and counseling completed Goal Td vaccine. Due on due Goal Alcohol Screenin g/AUDIT-C. Due on due Goal Zoster vaccine ( ). Due on due Goal Tdap. Due on due Goal Colonoscopy. Due on due Goal PSA. Due on due Goal Drug Screening/D AST-10. Due on due Goal Pneumococcal vaccine due Goal Lipid panel. Due on due Goal ECG. Due on due Goal Urinalysis. Due on due Goal Retinal Exam. Due on 2019 due Goal Depression scree jimmie. Due on due Goal Fundoscopic photo. Due on due Goal GFR. Due on due Goal Urine microalbumin. Due on A due Goal Dental exam. Due on due Goal Hemoglobin A1C. Due on due Goal CMP. Due on due Goal Foot exam. Due on due Goal Dietary manageme nt education, guidance, and counseling completed Goal ECG. Due on due Goal Urinalysis. Due on due Goal Hemoglobin A1C. Due on due Goal GFR. Due on due Goal Dental exam. Due on due Goal CMP. Due on due Goal Depression scree jimmie. Due on due Goal Urine microalbumin. Due on A due Goal Foot exam. Due on 0 due Goal Fundoscopic photo. Due on due Goal Retinal Exam. Due on 2019 due Goal PSA. Due on due Goal Pneumococcal vaccine due Goal Colonoscopy. Due on due Goal Tdap. Due on due Goal Zoster vaccine ( ). Due on due Goal Td vaccine. Due on due Goal Lipid panel. Due on due Goal Dietary manageme nt education, guidance, and counseling completed Goal Tobacco cessation counseling completed Goal Lipid panel. Due on due Goal ECG. Due on due Goal Urinalysis. Due on due Goal Tdap. Due on due Goal Td vaccine. Due on 24 due Goal Pneumococcal vaccine due Goal Zoster vaccine ( ). Due on due Goal PSA. Due on due Goal Colonoscopy. Due on due Goal Depression scree jimmie. Due on due Goal Foot exam. Due on 0 due Goal Dental exam. Due on due Goal Hemoglobin A1C. Due on due Goal GFR. Due on due Goal Urine microalbumin. Due on A due Goal CMP. Due on due Goal Retinal Exam. Due on 2019 due Goal Fundoscopic photo. Due on Oc due Goal Dietary manageme nt education, guidance, and counseling completed Goal Depression scree jimmie. Due on due Goal Urine microalbumin. Due on A due Goal GFR. Due on due Goal Retinal Exam. Due on 2019 due Goal Dental exam. Due on due Goal Foot exam. Due on 0 due Goal PSA. Due on due Goal Zoster vaccine ( ). Due on due Goal Pneumococcal vaccine due Goal Tdap. Due on due Goal Td vaccine. Due on due Goal Colonoscopy. Due on due Goal Lipid panel. Due on due Goal ECG. Due on due Goal Urinalysis. Due on due Goal Hemoglobin A1C. Due on due Goal Fundoscopic photo. Due on due Goal CMP. Due on due Goal Dietary manageme nt education, guidance, and counseling completed Goal Urinalysis. Due on due Goal ECG. Due on due Goal Lipid panel. Due on due Goal Pneumococcal vaccine due Goal Tdap. Due on due Goal Td vaccine. Due on due Goal PSA. Due on due Goal Zoster vaccine ( ). Due on due Goal Colonoscopy. Due on due Goal Retinal Exam. Due on 2019 due Goal Foot exam. Due on 0 due Goal Urine microalbumin. Due on due Goal GFR. Due on due Goal Dental exam. Due on due Goal Depression scree jimmie. Due on due Goal Fundoscopic photo. Due on due Goal CMP. Due on due Goal Hemoglobin A1C. Due on due Goal Dietary manageme nt education, guidance, and counseling completed Goal Urinalysis. Due on due Goal ECG. Due on due Goal Lipid panel. Due on due Goal Zoster vaccine ( ). Due on due Goal Colonoscopy. Due on due Goal Pneumococcal vaccine due Goal PSA. Due on due Goal Td vaccine. Due on due Goal Tdap. Due on due Goal Depression scree jimmie. Due on due Goal Fundoscopic photo. Due on due Goal Urine microalbumin. Due on due Goal GFR. Due on due Goal Hemoglobin A1C. Due on due Goal Dental exam. Due on due Goal CMP. Due on due Goal Foot exam. Due on due Goal Retinal Exam. Due on 2019 due Goal Tobacco cessation counseling completed Goal Dietary manageme nt education, guidance, and counseling completed Goal ECG. Due on due Goal Urinalysis. Due on due Goal Lipid panel. Due on due Goal Colonoscopy. Due on due Goal PSA. Due on due Goal Zoster vaccine ( ). Due on due Goal Td vaccine. Due on due Goal Pneumococcal vaccine due Goal Tdap. Due on due Goal CMP. Due on due Goal Urine microalbumin. Due on due Goal Retinal Exam. Due on 2019 due Goal Foot exam. Due on 0 due Goal Depression scree jimmie. Due on due Goal Dental exam. Due on due Goal Hemoglobin A1C. Due on due Goal Fundoscopic photo. Due on due Goal GFR. Due on due Goal Dietary manageme nt education, guidance, and counseling completed Goal Tobacco cessation counseling completed Goal ECG. Due on due Goal Urinalysis. Due on due Goal Lipid panel. Due on due Goal Zoster vaccine ( ). Due on due Goal PSA. Due on due Goal Pneumococcal vaccine due Goal Tdap. Due on due Goal Td vaccine. Due on 24 due Goal Colonoscopy. Due on due Goal Urine microalbumin. Due on due Goal GFR. Due on due Goal Hemoglobin A1C. Due on due Goal CMP. Due on due Goal Retinal Exam. Due on 2019 due Goal Depression scree jimmie. Due on due Goal Dental exam. Due on due Goal Foot exam. Due on 0 due Goal Fundoscopic photo. Due on due Goal Dietary manageme nt education, guidance, and counseling completed Goal Tobacco cessation counseling completed Goal ECG. Due on due Goal Urinalysis. Due on due Goal Lipid panel. Due on due Goal Pneumococcal vaccine due Goal Td vaccine. Due on 24 due Goal Colonoscopy. Due on due Goal PSA. Due on due Goal Zoster vaccine ( ). Due on due Goal Influenza vaccine. Due on due Goal Tdap. Due on due Goal CMP. Due on due Goal Retinal Exam. Due on 2019 due Goal Foot exam. Due on 0 due Goal Urine microalbumin. Due on due Goal Depression scree jimmie. Due on due Goal Dental exam. Due on due Goal Fundoscopic photo. Due on due Goal Hemoglobin A1C. Due on due Goal GFR. Due on due Goal Dietary manageme nt education, guidance, and counseling completed Goal Urine microalbumin. Due on due Goal Zoster vaccine. Due on due Goal Zoster vaccine ( 1st). Due on due Goal Tdap. Due on due Goal Pneumococcal vaccine due Goal Colonoscopy. Due on due Goal Influenza vaccine. Due on due Goal Td vaccine. Due on 24 due Goal PSA. Due on due Goal Lipid panel. Due on 020 due Goal ECG. Due on due Goal Urinalysis. Due on 19 due Goal CMP. Due on due Goal GFR. Due on due Goal Dental exam. Due on due Goal Retinal Exam. Due on 2019 due Goal Depression scree jimmie. Due on due Goal Hemoglobin A1C. Due on due Goal Fundoscopic photo. Due on due Goal Foot exam. Due on 0 due Goal Dietary manageme nt education, guidance, and counseling completed Goal Dietary manageme nt education, guidance, and counseling completed Goal Hemoglobin A1C. Due on due Goal Retinal Exam. Due on 2019 due Goal Foot exam. Due on 0 due Goal GFR. Due on due Goal Depression scree jimmie. Due on due Goal Dental exam. Due on due Goal Fundoscopic photo. Due on due Goal CMP. Due on due Goal Urine microalbumin. Due on due Goal Zoster vaccine ( 1st). Due on due Goal Tdap. Due on due Goal Zoster vaccine. Due on due Goal Pneumococcal vaccine due Goal Colonoscopy. Due on due Goal Td vaccine. Due on due Goal PSA. Due on due Goal Influenza vaccine. Due on due Goal Lipid panel. Due on due Goal Urinalysis. Due on 19 due Goal ECG. Due on due Goal Influenza vaccine. Due on due Goal Td vaccine. Due on due Goal Lipid panel. Due on due Goal Urinalysis due Goal Retinal Exam. Due on 2019 due Goal Foot exam. Due on 9 due Goal GFR. Due on due Goal CMP. Due on due Goal Hemoglobin A1C. Due on due Goal Dental exam. Due on due Goal Depression scree jimmie. Due on due Goal Fundoscopic photo. Due on due Goal Urine microalbumin. Due on due Goal Zoster vaccine. Due on due Goal Pneumococcal vaccine due Goal Tdap. Due on due Goal Colonoscopy. Due on due Goal Retinal Exam. Due on 2019 due Goal Foot exam. Due on 9 due Goal Dental exam. Due on due Goal GFR. Due on due Goal CMP. Due on due Goal Hemoglobin A1C. Due on due Goal Urine microalbumin. Due on due Goal Depression scree jimmie. Due on due Goal Fundoscopic photo. Due on due Goal Urinalysis. Due on 19 due Goal Zoster vaccine. Due on due Goal Pneumococcal vaccine due Goal Influenza vaccine. Due on due Goal Colonoscopy. Due on due Goal Tdap. Due on due Goal Td vaccine. Due on due Goal Lipid panel. Due on due Goal ECG. Due on due Goal Influenza vaccine. Due on due Goal Td vaccine. Due on due Goal Colonoscopy. Due on due Goal Tdap. Due on due Goal ECG. Due on due Goal Lipid panel. Due on due Goal Retinal Exam. Due on 2018 due Goal Foot exam. Due on 9 due Goal GFR. Due on due Goal Dental exam. Due on due Goal Hemoglobin A1C. Due on due Goal CMP. Due on due Goal Depression scree jimmie. Due on due Goal Fundoscopic photo. Due on due Goal Urine microalbumin. Due on due Goal Urinalysis. Due on 19 due Goal Pneumococcal vaccine due Goal Zoster vaccine. Due on due Goal Dietary manageme nt education, guidance, and counseling completed Goal Depression scree jimmie. Due on due Goal Urine microalbumin. Due on due Goal Colonoscopy. Due on due Goal Zoster vaccine. Due on due Goal Td vaccine. Due on due Goal Lipid panel. Due on due Goal ECG. Due on due Goal Urinalysis. Due on 19 due Goal Foot exam. Due on 9 due Goal GFR. Due on due Goal CMP. Due on due Goal Hemoglobin A1C. Due on due Goal Dental exam. Due on due Goal Fundoscopic photo. Due on due Goal Td vaccine. Due on 24 due Goal Lipid panel. Due on due Goal Urinalysis . Due on due Goal Retinal Exam. Due on 2017 due Goal Foot exam. Due on 8 due Goal Hemoglobin A1C. Due on due Goal CMP. Due on due Goal Dental exam. Due on due Goal GFR. Due on due Goal Fundoscopic photo. Due on due Goal Urine microalbumin. Due on due Goal ECG. Due on due Goal Depression scree jimmie. Due on due Goal Colonoscopy. Due on due Goal Zoster vaccine. Due on due Goal Urinalysis . Due on due Goal Depression scree jimmie. Due on due Goal Lipid panel. Due on due Goal Zoster vaccine. Due on due Goal Colonoscopy. Due on due Goal Td vaccine. Due on 24 due Goal Sigmoidoscopy. Due on due Goal FOBT. Due on due Goal ECG. Due on due Goal Fundoscopic photo. Due on due Goal Urine microalbumin. Due on due Goal GFR. Due on due Goal Foot exam. Due on due Goal Hemoglobin A1C. Due on due Goal Dental exam. Due on due Goal CMP. Due on due Goal Retinal Exam. Due on 2017 due Goal Dilated eye exam. Due on Jan due Goal Urinalysis . Due on due Goal Lipid panel. Due on due Goal PSA. Due on due Goal Colonoscopy. Due on due Goal Sigmoidoscopy. Due on due Goal FOBT. Due on due Goal Foot exam. Due on due Goal Urine microalbumin. Due on due Goal Dental exam. Due on due Goal ECG. Due on due Goal GFR. Due on due Goal Hemoglobin A1C. Due on due Goal Dilated eye exam. Due on November due Goal ECG. Due on due Goal Hemoglobin A1C. Due on due Goal Dilated eye exam. Due on November due Goal Foot exam. Due on due Goal GFR. Due on due Goal Dental exam. Due on due Goal Urine microalbumin. Due on due Goal Sigmoidoscopy. Due on due Goal Colonoscopy. Due on due Goal PSA. Due on due Goal FOBT. Due on due Goal Lipid panel. Due on due Goal Urinalysis . Due on due Goal Urinalysis . Due on due Goal Lipid panel. Due on due Goal PSA. Due on due Goal Colonoscopy. Due on due Goal FOBT. Due on due Goal Sigmoidoscopy. Due on due Goal ECG. Due on due Goal Dilated eye exam. Due on Jul due Goal Urine microalbumin. Due on due Goal Foot exam. Due on due Goal GFR. Due on due Goal Dental exam. Due on due Goal Dietary manageme nt education, guidance, and counseling completed Goal ECG. Due on due Goal Urinalysis . Due on due Goal Lipid panel. Due on due Goal PSA. Due on due Goal Sigmoidoscopy. Due on due Goal FOBT. Due on due Goal Colonoscopy. Due on due Goal Fundoscopic photo. Due on due Goal Urine microalbumin. Due on due Goal Foot exam. Due on due Goal Retinal Exam. Due on 2016 due Goal GFR. Due on due Goal Dental exam. Due on due Goal Dilated eye exam. Due on May due Goal Fundoscopic photo. Due on due Goal Retinal Exam. Due on 2016 due Goal Urine microalbumin. Due on due Goal GFR. Due on due Goal Foot exam. Due on due Goal Dental exam. Due on due Goal Dilated eye exam. Due on May due Goal PSA. Due on due Goal ECG. Due on due Goal Urinalysis . Due on due Goal Lipid panel. Due on due Goal FOBT. Due on due Goal Colonoscopy. Due on due Goal Sigmoidoscopy. Due on due Goal Urinalysis . Due on due Goal ECG. Due on due Goal Lipid panel. Due on due Goal FOBT. Due on due Goal Sigmoidoscopy. Due on due Goal Colonoscopy. Due on due Goal PSA. Due on due Goal Fundoscopic photo. Due on due Goal Urine microalbumin. Due on A due Goal Dental exam. Due on due Goal Retinal Exam. Due on 2016 due Goal Foot exam. Due on 6 due Goal Hemoglobin A1C. Due on due Goal GFR. Due on due Goal Dilated eye exam. Due on Feb due Goal ECG. Due on due Goal Urinalysis . Due on due Goal Lipid panel. Due on due Goal Sigmoidoscopy. Due on due Goal Colonoscopy. Due on due Goal FOBT. Due on due Goal PSA. Due on due Goal Foot exam. Due on due Goal Dilated eye exam. Due on Jan due Goal Hemoglobin A1C. Due on due Goal GFR. Due on due Goal Fundoscopic photo. Due on due Goal Urine microalbumin. Due on due Goal Dental exam. Due on due Goal Retinal Exam. Due on 2016 due Goal Urinalysis . Due on due Goal ECG. Due on due Goal Lipid panel. Due on due Goal Colonoscopy. Due on due Goal Sigmoidoscopy. Due on due Goal PSA. Due on due Goal Foot exam. Due on due Goal Fundoscopic photo. Due on due Goal Urine microalbumin. Due on due Goal Dental exam. Due on due Goal Dilated eye exam. Due on November due Goal GFR. Due on due Goal Hemoglobin A1C. Due on due Goal Retinal Exam. Due on 2016 due Goal FOBT. Due on due Goal ECG. Due on due Goal Urinalysis . Due on due Goal Lipid panel. Due on due Goal PSA. Due on due Goal Colonoscopy. Due on due Goal Tdap. Due on due Goal Sigmoidoscopy. Due on due Goal FOBT. Due on due Goal Foot exam. Due on 6 due Goal Urine microalbumin. Due on A due Goal Fundoscopic photo. Due on due Goal GFR. Due on due Goal Dilated eye exam. Due on Oct due Goal Influenza vaccine. Due on due Goal Dental exam. Due on due Goal Retinal Exam. Due on 2016 due Goal Urinalysis . Due on due Goal Colonoscopy. Due on due Goal FOBT. Due on due Goal PSA. Due on due Goal Sigmoidoscopy. Due on due Goal Tdap. Due on due Goal ECG. Due on due Goal Urine microalbumin. Due on due Goal GFR. Due on due Goal Influenza vaccine. Due on due Goal Dental exam. Due on 017 due Goal Fundoscopic photo. Due on due Goal Retinal Exam. Due on 2016 due Goal Foot exam. Due on 6 due Goal Dilated eye exam. Due on Aug due Goal Urinalysis . Due on 016 due Goal ECG. Due on due Goal Retinal Exam. Due on 2015 due Goal Lipid panel. Due on 013 due Goal FOBT. Due on due Goal Sigmoidoscopy. Due on due Goal PSA. Due on due Goal Tdap. Due on due Goal Colonoscopy. Due on 016 due Goal GFR. Due on due Goal Dental exam. Due on due Goal Dilated eye exam. Due on Mar due Goal Foot exam. Due on 6 due Goal Urine microalbumin. Due on due Goal CMP. Due on due Goal Influenza vaccine. Due on due Goal Fundoscopic photo. Due on due Goal Hemoglobin A1C. Due on due Goal Dilated eye exam. Due on Dec due Goal GFR. Due on due Goal CMP. Due on due Goal Urine microalbumin. Due on due Goal Influenza vaccine. Due on due Goal Dental exam. Due on due Goal Hemoglobin A1C. Due on due Goal PSA. Due on due Goal FOBT. Due on due Goal Colonoscopy. Due on due Goal Tdap. Due on due Goal Sigmoidoscopy. Due on due Goal Lipid panel. Due on due Goal ECG. Due on due Goal Urinalysis . Due on due Goal ECG. Due on due Goal Urinalysis . Due on due Goal Lipid panel. Due on due Goal FOBT. Due on due Goal Sigmoidoscopy. Due on due Goal PSA. Due on due Goal Colonoscopy. Due on due Goal Tdap. Due on due Goal CMP. Due on due Goal Dental exam. Due on due Goal GFR. Due on due Goal Dilated eye exam. Due on Jul due Goal Urine microalbumin. Due on due Goal Influenza vaccine. Due on due Goal Hemoglobin A1C. Due on due Goal ECG. Due on due Goal Lipid panel. Due on due Goal Colonoscopy. Due on due Goal Tdap. Due on due Goal FOBT. Due on due Goal Sigmoidoscopy. Due on due Goal PSA. Due on due Goal CMP. Due on due Goal Dental exam. Due on due Goal Dilated eye exam. Due on Mar due Goal GFR. Due on due Goal Fundoscopic photo. Due on due Goal Influenza vaccine. Due on due Goal Urine microalbumin. Due on due Goal Urinalysis . Due on due Goal Hemoglobin A1C. Due on due Goal ECG. Due on due Goal Lipid panel. Due on due Goal Tdap. Due on due Goal PSA. Due on due Goal Sigmoidoscopy. Due on due Goal FOBT. Due on due Goal Colonoscopy. Due on due Goal CMP. Due on due Goal Urine microalbumin. Due on due Goal Urinalysis . Due on due Goal Dilated eye exam. Due on Jan due Goal GFR. Due on due Goal Dental exam. Due on due Goal Hemoglobin A1C. Due on due Goal Influenza vaccine. Due on due Goal ECG. Due on due Goal Urinalysis . Due on due Goal Pneumococcal vaccine due Goal Influenza vaccine. Due on due Goal Foot exam. Due on due Goal CMP. Due on due Goal Urine microalbumin. Due on due Goal Dilated eye exam. Due on Jan due Goal GFR. Due on due Goal Dental exam. Due on 015 due Goal Hemoglobin A1C. Due on due Goal Tdap. Due on due Goal Lipid panel. Due on 013 due Goal PSA. Due on due Goal Sigmoidoscopy. Due on due Goal FOBT. Due on due Goal Colonoscopy. Due on 015 due Goal Tobacco cessation counseling completed Goal Tobacco cessation counseling completed Goal Tobacco cessation counseling completed Referral Ordered: ELECTROCARDIOGRAM, COMPLETE ordered Referral Ordered: Referrals: Manager [employer] ordered Referral Ordered: X-RAY EXAM CHEST 2 VIEWS ordered Referral Ordered: EYE EXAM WITH PHOTOS Bilateral Appointment date/timeframe: 11/07/2018 ordered Referral Ordered: Referrals: Podiatry. Consult ordered Referral Ordered: Referrals: Podiatry. Follow-up and Treat ordered Referral Referred To: Nhi Pope DDS [id number] [place], [phone] Ordered: Referrals: Dentistry. Nhi Pope DDS. Location: [facility]. Evaluate and treat ordered Referral Ordered: Referrals: Ophthalmology. Evaluate and treat Appointment date/timeframe: 02/19/2017 ordered Referral Ordered: Referrals: Diabetes Education. Consult ordered Referral Ordered: Referrals: Diabetes Education. Evaluate and treat ordered Referral Ordered: X-RAY EXAM OF KNEE, 1 OR 2 Bilateral ordered Referral Ordered: EYE EXAM WITH PHOTOS ordered Referral Ordered: X-RAY EXAM OF KNEE, 1 OR 2 Appointment date/timeframe: 04/09/2015 ordered Referral Ordered: Referrals: Dentist. Evaluate and treat Appointment date/timeframe: 06/26/2015 ordered Referral Ordered: Referrals: Retinal Scan. Evaluate and treat ordered Referral Ordered: Referrals: Retinal Scan. Consult ordered Referral Ordered: Referral: Retinal Scan. Consult. Appointment date/timeframe: 01/31/2014 ordered Referral Ordered: Referral: System Support Developer. Consult. ordered Referral Ordered: Referral: Podiatry. Consult. ordered Patient Education Learning About Type 2 D iabetes completed Patient Education Acute High Blood Pressu re: After Your completed Patient Education Diabetes Diet Guideline s: After Your V completed Patient Education Eating Healthy Foods: A fter Your Visit completed Patient Education Learning About Physical Activity completed Patient Education Eating Healthy Foods: A fter Your Visit completed Patient Education A Healthy Heart: After Your Visit completed Patient Education Acute High Blood Pressu re: After Your completed Patient Education Diet and Exercise for [place] completed Patient Education A Healthy Heart: After Your Visit completed Patient Education Diabetes Diet Guideline s: After Your V completed Patient Education Diet and Exercise for [place] completed Patient Education Diabetes Diet Guideline s: After Your V completed Patient Education Diabetes Foot Care: Aft er Your Visit completed Future Order: Lab Order Comp. Me tabolic Panel (14) ([id number]), Ordered on: Ordered Future Order: Lab Order Lipid Pa bam ([id number]), Ordered on: Ordered Future Order: Lab Order Hemoglob in A1c ([id number]), Ordered on: Ordered Future Order: Lab Order CBC With Differential/Platelet ([id number]), Ordered on: Ordered Future Order: Lab Order HEMOGLOB IN A1C ([id number]), Scheduled for: Ordered Future Order: Lab Order LIPID PA BAM ([id number]), Scheduled for: Ordered Future Order: Lab Order HEMOGLOB IN + HEMATOCRIT ([id number]), Scheduled for: Ordered Future Order: Lab Order HEMOGLOB IN A1C (496), Scheduled for: Ordered Future Order: Lab Order LIPID PA BAM ([id number]), Scheduled for: Ordered History Of Present Illness Encounter Date Complaint History Of Prese nt Illness comments Pt continues geraldine Cummings 25mg lab results from 01/07/2024 hypertension The HTN started in 2012. Comorbid conditions include diabetes mellitus. Risk factors include male gender, obesity and oral contraceptives. diabetes The diabetes louann litus began in 2010. Risk factors include: / Irish, obesity and over age [age] years old. Managing with: Diet, Oral medications and Fingerstick blood sugars (). Comorbidity: Hypertension. Pertinent negatives include dental disease. hypertension The HTN started in 2012. Comorbid conditions include diabetes mellitus. Risk factors include male gender, obesity and oral contraceptives. Additional information: BP has been a little elevated mostly within normal range. hyperlipidemia Risk factors inc lude age over 50. lab results from 09/02/2023 diabetes The diabetes louann litus began in 2010. Risk factors include: / Irish, obesity and over age [age] years old. Managing with: Diet, Oral medications and Fingerstick blood sugars (). Comorbidity: Hypertension. Pertinent negatives include dental disease, foot ulcers, frequent infections, urinary frequency, polydipsia, slow healing wounds / sores and weight gain. Additional information: has not been monotoring bs at home .. hypertension The HTN started in 2012. Comorbid conditions include diabetes mellitus. Risk factors include male gender, obesity and oral contraceptives. Pertinent negatives include fatigue, headache, hematuria, irregular heartbeat/palpitations and tremor. Lab results from 02/10/2023 Retinal exam results from 2022 Refused flu vaccine diabetes The diabetes louann litus began in 2010. Risk factors include: / Irish, obesity and over age [age] years old. Managing with: Diet, Oral medications and Fingerstick blood sugars (). Comorbidity: Hypertension. Pertinent negatives include blurred vision, burning of extremities, chest pain, constant hunger, dental disease, diarrhea, dysesthesias, dyspnea, erectile dysfunction, foot ulcers, frequent infections, urinary frequency, heartburn, hypoglycemic episodes, impotence, increased fatigue, nocturia, polydipsia, slow healing wounds / sores, weight gain and weight loss. diabetes The diabetes louann litus began in 2010. Risk factors include: / Irish, obesity and over age [age] years old. Managing with: Diet, Oral medications and Fingerstick blood sugars (). Comorbidity: Hypertension. Pertinent negatives include dental disease. lab results from 09/2022 hypertension The HTN started in 2012. Comorbid conditions include diabetes mellitus. Risk factors include male gender, obesity and oral contraceptives. Discuss test results lab results from 09/01/2022 retinal results hypertension The HTN started in 2012. Comorbid conditions include diabetes mellitus. Risk factors include male gender, obesity and oral contraceptives. Follow Up of Diabetes The diabet es mellitus began in 2010. Risk factors include: / Irish, obesity and over age [age] years old. Managing with: Diet, Oral medications and Fingerstick blood sugars (). Comorbidity: Hypertension. Pertinent negatives include dental disease. Additional information: has not checked blood sugars at home .. lab results pt here for lab results from 02/09/22LDL 145->56, Tri 122, hga1c 5.8%no new complaints DM f/u pt here for DM f /u. pt denies staking his sugar at home. pt said he does take his medication everyday for DM lab results 08/13/21h/o T2DM , HLD, and HTNcurrent meds: lisinopril 40mg po q.d, amlodipine 10mg po q.d, chlorthalidone 25mg po q.d, metformin 1g po bid, jardiance 25mg po q.d, glipzide 10mg po bidnot takin statinslabs remarkable for : hga1c 5.9%, Tri 300s->131 but LDl still elevated 145 Discuss test results 11/05/2020:H istory of T2DM, HLD and HTNCurrent regimen: Amlodipine 10mg po q.d, lisinopril 40mg po q.d, Clorthalidone 25mg po q.d, metformin 1g po bid, Jardiance 25mg po q.d ( gets it cheaper from [place]) and Glipizide 10mg po bidRan out of Simvastatin 20mg po qhs for last 5 monthsFeeling well with no complaintRBS today is 100SBP is reasonable in the mid 13012/10/2020:Follow up on lab results.hga1c continues to be on downward trend, now 5.9%His LDl and Tri are elevated off statin, 151 and 305 respectively Follow Up of diabetes The diabet es mellitus began in 2010. Risk factors include: / Irish, obesity and over age [age] years old. Managing with: Diet, Oral medications and Fingerstick blood sugars (). Comorbidity: Hypertension. Pertinent negatives include blurred vision, diarrhea, foot ulcers, frequent infections and urinary frequency. Additional information: patient is requesting medication refill... FBS 100. Follow Up of diabetes (comments) History of T2DM, HLD and HTNCurrent regimen: Amlodipine 10mg po q.d, lisinopril 40mg po q.d, Clorthalidone 25mg po q.d, metformin 1g po bid, Jardiance 25mg po q.d ( gets it cheaper from [place]) and Glipizide 10mg po bidRan out of Simvastatin 20mg po qhs for last 5 monthsFeeling well with no complaintRBS today is 100SBP is reasonable in the mid 130s hypertension The HTN started in 2012. Comorbid conditions include diabetes mellitus. It is currently improving. Risk factors include male gender, obesity and oral contraceptives. Additional information: pt has BP log hypertension (comments) Added am lodipine 5mg poq.d on 04/23/2020 while continued on lisinopril 40mg q.d and clorthalidone 25mg q.d ambulatory SBP range: 128-167DBP range 69-86no complaints by patientDid run out of Clorthalidone 3 days ago Follow Up of Diabetes (comments) 04/23/2020:Verified regimen current for T2DM:metformin 1g po bidjardiance 25mg po q.dglipizide 10mg po bid comments (comments) 03/13/20:Histo ry of uncontrolled T2DM and HTNHe brougtht ambulatory BP log: SBP range 122-130, DBP range 62-86FBS reportedly 211-333we continued patient on metformin 1g po bidIncreased jardiance to 25mg po q.dIncreased glipizide to 10mg po bid03/20/20: Doing well with medications. His 2hr PPG is now at goal <180 his FBS is improving and on downward trajectory with couple of outliers. Follow Up of Diabetes The diabet es mellitus began in 2010. Risk factors include: / Irish, obesity and over age [age] years old. Managing with: Diet, Oral medications and Fingerstick blood sugars (). Comorbidity: Hypertension. Additional information: FBS 112, 131, 133, 122, 128 . 2 hours after meals 137, 128, 108 and 155. comments Pt needs refills on glipizide medication . Follow Up of Diabetes (comments) 03/13/20:History of uncontrolled T2DM and HTNCurrent meds: Metformin 1g po bid, Glipizide 5mg po bid, Lisinopril 40mg po q.d, atenolol 25mg po q.d, Clorthalidone 25mg po q.d, Jardiance 10mg po q.d added on 03/08/20. He brougtht ambulatory BP log: SBP range 122-130, DBP range 62-86FBS reportedly 211-333we continued patient on metformin 1g po bidIncreased jardiance to 25mg po q.dIncreased glipizide to 10mg po bid03/20/20: Doing well with medications. His 2hr PPG is now at goal <180 his FBS is improving and on downward trajectory with couple of outliers. Follow Up of Diabetes The diabet es mellitus began in 2010. Risk factors include: / Irish, obesity and over age [age] years old. Managing with: Diet, Oral medications and Fingerstick blood sugars (). Comorbidity: Hypertension. Additional information: FBS:167, 169, 169, 140. 125, 141, 122 . 2 hours after lunch 161, 184, 220, 158, 134 and 140. Follow Up of Diabetes (comments) History of uncontrolled T2DM and HTNCurrent meds: Metformin 1g po bid, Glipizide 5mg po bid, Lisinopril 40mg po q.d, atenolol 25mg po q.d, Clorthalidone 25mg po q.d, Jardiance 10mg po q.d added on 03/08/20. He brougtht ambulatory BP log: SBP range 122-130, DBP range 62-86FBS reportedly 211-333 Follow Up of Diabetes The diabet es mellitus began in 2010. Risk factors include: / Irish, obesity and over age [age] years old. Managing with: Oral medications and Fingerstick blood sugars (). Home glucose readings: Min 211, Max 303, Avg 213. Comorbidity: Hypertension. hypertension (comments) labs fro m 02/20/20 remarkable for hgA1c 12.5%, Tri 462, LDL not calculated, ALP 160s Seen last on 03/05/20 when added one more Anti-htn and oral hypoglycemicCurrent meds: Metformin 1g po bid, Glipizide 5mg po bid, Lisinopril 40mg po q.d, atenolol 25mg po q.d, Clorthalidone 25mg po q.d.Patient states he is taking his medications but when asked what and when he is taking it he answers with I do not know hypertension The HTN started in 2012. Comorbid conditions include diabetes mellitus. Risk factors include male gender, obesity and oral contraceptives. Additional information: follow up per diabetes The diabetes louann litus began in 2010. The problem is stable. Risk factors include: / Irish, obesity and over age [age] years old. Patient is compliant with using medication, follow-up, and using education materials. Managing with: Oral medications. Comorbidity: Hypertension. Additional information: follow up , patient states medication too strong feels weak and feels dizzy and looses appetite. diabetes (comments) labs from 05/31 remarkable for hgA1c 12.5%, Tri 462, LDL not calculated, ALP 160s Restarted On Metformin on 02/20/20; 1g po bidendorses dizziness and fatigue diabetes (comments) Last hgA1c 5 .8 from 08/31, back then at goal LDL and Tri, Vitamin D was low in the deficiency zone.Current active but not confirmed home medication: ASA 81mg po q.d, Lisinopril 40mg po q.d, Atenolol 25mg po q.d, Metformin 500mg po bid and Zocor 20mg po qhs. diabetes The diabetes louann litus began in 2010. Risk factors include: / Irish, obesity and over age [age] years old. Managing with: Oral medications. Comorbidity: Hypertension. Additional information: vaccines:PPV23 & Td 07/14/2013last retinal exam 10/12/18didn't bring medication doesn't knownow fastingFx: deniesHx: DM and Arthritisno Smokingalcohol beer occasional 1 or 2 cans. Rx refills Paatient feeling well no C/o Headache visual disturbances,n,v, , dizziness, CP, SOB, edema DM/HTN Pertinent negati ves include fatigue, pain, weight gain and weight loss. Additional information: pt fasting today labs due. diabetes The diabetes louann litus began in 2010. Risk factors include: / Irish, obesity and over age [age] years old. Managing with: Oral medications. Comorbidity: Hypertension. Pertinent negatives include blurred vision, burning of extremities, chest pain, constant hunger, dental disease, diarrhea, dysesthesias, dyspnea, erectile dysfunction, foot ulcers, frequent infections, urinary frequency, heartburn, hypoglycemic episodes, impotence, increased fatigue, nocturia, polydipsia, slow healing wounds / sores, weight gain and weight loss. Additional information: pt requesting med refill. Follow Up of diabetes The diabet es mellitus began in 2010. Risk factors include: / Irish, obesity and over age [age] years old. Managing with: Oral medications. Comorbidity: Hypertension. Pertinent negatives include blurred vision, burning of extremities, chest pain, constant hunger, dental disease, diarrhea, dysesthesias, dyspnea, erectile dysfunction, frequent infections, urinary frequency, heartburn, hypoglycemic episodes, impotence, increased fatigue, nocturia, polydipsia, slow healing wounds / sores, weight gain and weight loss. diabetes The diabetes louann jordy began in 2010. The problem is stable. Risk factors include: / Irish, obesity and over age [age] years old. Patient is compliant with using medication, follow-up, and using education materials. He Has been managed with oral medications. Comorbidity: Hypertension. Pertinent negatives include blurred vision, burning of extremities, chest pain, constant hunger, dental disease, diarrhea, dysesthesias, dyspnea, erectile dysfunction, foot ulcers, frequent infections, urinary frequency, heartburn, hypoglycemic episodes, impotence, increased fatigue, nocturia, polydipsia, slow healing wounds / sores, weight gain and weight loss. hypertension The HTN started in 2012.The HTN started in 2012. Comorbid conditions include diabetes mellitus and diabetes mellitus. It is currently stable. Risk factors include male gender, oral contraceptives, male gender and oral contraceptives. The hypertension is exacerbated by nothing. Pertinent negatives include Pertinent negatives include chest pain claudication, confusion, diaphoresis, dyspnea, epistaxis, fatigue, headache, hematuria, irregular heartbeat/palpitations, nausea, tinnitus, transient weakness, tremor, visual disturbances and vomiting., chest pain, claudication, confusion, diaphoresis, dyspnea, epistaxis, fatigue, headache, hematuria, irregular heartbeat/palpitations, nausea, tinnitus, transient weakness, tremor, visual disturbances and vomiting. Follow Up of hypertension The HT N started in 2012. Comorbid conditions include diabetes mellitus. Risk factors include male gender. Pertinent negatives include chest pain, confusion, dyspnea, fatigue and vomiting. diabetes The diabetes louann spence began in 2010. Risk factors include: / Irish, obesity and over age [age] years old. He Has been managed with oral medications. Comorbidity: Hypertension. Pertinent negatives include polydipsia. Additional information: medication refill and labs.. FBS 123 pt remove shoes.. retinal done 11-23-17. hypertension The HTN started in 2012. Comorbid conditions include diabetes mellitus. It is currently stable. Risk factors include male gender and oral contraceptives. The hypertension is exacerbated by nothing. Pertinent negatives include chest pain, claudication, confusion, diaphoresis, dyspnea, epistaxis, fatigue, headache, hematuria, irregular heartbeat/palpitations, nausea, tinnitus, transient weakness, tremor, visual disturbances and vomiting. diabetes The diabetes louann litus began in 2010. The problem is stable. Risk factors include: / Irish, obesity and over age [age] years old. Patient is compliant with using medication, follow-up, and using education materials. He Has been managed with oral medications. Comorbidity: Hypertension. Pertinent negatives include blurred vision, burning of extremities, chest pain, constant hunger, dental disease, diarrhea, dysesthesias, dyspnea, erectile dysfunction, foot ulcers, frequent infections, urinary frequency, heartburn, hypoglycemic episodes, impotence, increased fatigue, nocturia, polydipsia, slow healing wounds / sores, weight gain and weight loss. diabetes The diabetes louann litus began in 2010. Risk factors include: / Irish, obesity and over age [age] years old. He Has been managed with oral medications. Comorbidity: Hypertension. Pertinent negatives include polydipsia. Additional information: MEDICATION REFILL AND LABS. Diabetes The diabetes louann litus began in 2010. The problem is stable. Risk factors include: / Irish, obesity and over age [age] years old. Patient is compliant with using medication. He Has been managed with oral medications. Comorbidity: Hypertension. Pertinent negatives include polydipsia. diabetes The diabetes louann litus began in 2010. Risk factors include: / Irish, obesity and over age [age] years old. He Has been managed with oral medications. Comorbidity: Hypertension. Pertinent negatives include blurred vision, diarrhea, foot ulcers, frequent urination and polydipsia. Additional information: Medication refill. Follow Up of 3mths DM refill med s refuse flu vacc diabetes The diabetes louann litus began in 2010. Risk factors include: / Irish, obesity and over age [age] years old. Patient is compliant with using medication, and education materials. He Has been managed with oral medications. Comorbidity: Hypertension. Pertinent negatives include blurred vision, chest pain, dental disease, diarrhea, foot ulcers, frequent infections, frequent urination and increased fatigue. Additional information: PT IS REQUESTING MEDICATION REFILL.. FBS 117. hypertension The HTN started in 2012. Risk factors include male gender. Pertinent negatives include chest pain, confusion, fatigue, headache and vomiting. Additional information: ALSO REQUESTING MEDICATION FOR HBP diabetes The diabetes louann litus began in 2010. The problem is stable. Risk factors include: / Irish, obesity and over age [age] years old. He Has been managed with oral medications. Comorbidity: Hypertension. hypertension The HTN started in 2012. Risk factors include male gender. DM/HTN Pertinent negati ves include fatigue, pain, weight gain and weight loss. Diabetes The diabetes louann litus began in 2010. Risk factors include: / Irish, obesity and over age [age] years old. Patient is compliant with using medication, follow-up, and using education materials. He Has been managed with oral medications. Comorbidity: Hypertension. Pertinent negatives include blurred vision, burning of extremities, chest pain, constant hunger, dental disease, diarrhea, dysesthesias, dyspnea, erectile dysfunction, foot ulcers, frequent infections, frequent urination, heartburn, impotence, increased fatigue, nocturia, weight gain and weight loss. Additional information: RBS 131. DM/HTN Pertinent negati ves include fatigue, pain, weight gain and weight loss. Medication refill diabetes The diabetes louann litus began in 2010. Risk factors include: / Irish, obesity and over age [age] years old. He Has been managed with oral medications. Comorbidity: Hypertension. diabetes The diabetes louann litus began in 2010. Risk factors include: / Irish, obesity and over age [age] years old. He Has been managed with oral medications. Comorbidity: Hypertension. Additional information: Patient in for diabetes f/up and medication refills. diabetes The diabetes louann litus began in 2010. Risk factors include: / Irish, obesity and over age [age] years old. Patient is compliant with using medication, and follow-up. He Has been managed with oral medications. Comorbidity: Hypertension. diabetes The diabetes louann litus began in 2010. Risk factors include: / Irish, obesity and over age [age] years old. He Has been managed with oral medications. Comorbidity: Hypertension. Pertinent negatives include chest pain, dyspnea, nocturia, weight gain and weight loss. diabetes The diabetes louann litus began in 2010. Risk factors include: / Irish, obesity and over age [age] years old. He Has been managed with oral medications. Comorbidity: Hypertension. Pertinent negatives include chest pain, dyspnea, nocturia, weight gain and weight loss. Additional information: [id number]. diabetes The diabetes louann litus began in 2010. Risk factors include: / Irish, obesity and over age [age] years old. He Has been managed with oral medications. Comorbidity: Hypertension. Pertinent negatives include polydipsia, weight gain and weight loss. Additional information: Patietn in for diabetes follo wup and medication refills. Functional Status Date Functional Assessmen t No Information Instructions Date Instruction Additional Infor jeremyion cont Januviacont Met formin 1gram BID cont Glipizide 10 mg BID discussed dietBring BS log in 4-6 weeks Related to Type 2 diabetes mellitus without complications Dietary management e ducation, guidance, and counseling Related to Body mass index [BMI] 30.0-30.9, adult Giving encouragement to exercise Related to Body mass index [BMI] 30.0-30.9, adult - cont Lisinopril 10 mg - Increase Clorthalidone to 50 mg- con Amlodipine 10 mg Bring BP log in 4-6 weekslow salt diet Related to Essential (primary) hypertension Add Januviacont Metf ormin 1gram BID cont Glipizide 10 mg BID discussed dietBring BS log in 4-6 weeks Related to Type 2 diabetes mellitus without complications Dietary management e ducation, guidance, and counseling Related to Body mass index [BMI] 30.0-30.9, adult Giving encouragement to exercise Related to Body mass index [BMI] 30.0-30.9, adult Dietary management e ducation, guidance, and counseling Related to Body mass index [BMI] 30.0-30.9, adult Giving encouragement to exercise Related to Body mass index [BMI] 30.0-30.9, adult Giving encouragement to exercise Related to Body mass index [BMI] 31.0-31.9, adult Dietary management e ducation, guidance, and counseling Related to Body mass index [BMI] 31.0-31.9, adult Giving encouragement to exercise Related to Body mass index [BMI] 32.0-32.9, adult Dietary management e ducation, guidance, and counseling Related to Body mass index [BMI] 32.0-32.9, adult Giving encouragement to exercise Related to Body mass index [BMI] 31.0-31.9, adult Dietary management e ducation, guidance, and counseling Related to Body mass index [BMI] 31.0-31.9, adult Dietary management e ducation, guidance, and counseling Related to Body mass index [BMI] 31.0-31.9, adult Giving encouragement to exercise Related to Body mass index [BMI] 31.0-31.9, adult [facility] lifestyle recommendations:Recommended engaging in aerobic physical activity 3-4 sessions per week, lasting on average 40mins per session that can involve moderate to vigorous intensity physical activityAlso discussed the benefits of consuming dietary pattern that emphasizes intake of vegetables, fruits and whole grains. Related to Other hyperlipidemia Giving encouragement to exercise Related to Body mass index [BMI] 30.0-30.9, adult Dietary management e ducation, guidance, and counseling Related to Body mass index [BMI] 30.0-30.9, adult Dietary management e ducation, guidance, and counseling Related to Body mass index [BMI] 31.0-31.9, adult Giving encouragement to exercise Related to Body mass index [BMI] 31.0-31.9, adult Giving encouragement to exercise Related to Body mass index [BMI] 32.0-32.9, adult Dietary management e ducation, guidance, and counseling Related to Body mass index [BMI] 32.0-32.9, adult Dietary management e ducation, guidance, and counseling Related to Body mass index [BMI] 32.0-32.9, adult Dietary management e ducation, guidance, and counseling Related to Body mass index [BMI] 32.0-32.9, adult Giving encouragement to exercise Related to Body mass index [BMI] 32.0-32.9, adult Giving encouragement to exercise Related to Body mass index [BMI] 32.0-32.9, adult Dietary management e ducation, guidance, and counseling Related to Body mass index [BMI] 32.0-32.9, adult ACC lifestyle recommendations:Recommended engaging in aerobic physical activity 3-4 sessions per week, lasting on average 40mins per session that can involve moderate to vigorous intensity physical activityAlso discussed the benefits of consuming dietary pattern that emphasizes intake of vegetables, fruits and whole grains Related to Other hyperlipidemia Dietary management e ducation, guidance, and counseling Related to Body mass index (BMI) 31.0-31.9, adult Giving encouragement to exercise Related to Body mass index (BMI) 31.0-31.9, adult Dietary management e ducation, guidance, and counseling Related to Body mass index (BMI) 30.0-30.9, adult Giving encouragement to exercise Related to Body mass index (BMI) 30.0-30.9, adult Dietary management e ducation, guidance, and counseling Related to Body mass index (BMI) 30.0-30.9, adult Giving encouragement to exercise Related to Body mass index (BMI) 30.0-30.9, adult Dietary management e ducation, guidance, and counseling Related to Body mass index (BMI) 31.0-31.9, adult Giving encouragement to exercise Related to Body mass index (BMI) 31.0-31.9, adult Dietary management e ducation, guidance, and counseling Related to Body mass index (BMI) 31.0-31.9, adult Giving encouragement to exercise Related to Body mass index (BMI) 31.0-31.9, adult referral eye exam Related to Age -related cataract of both eyes, unspecified age-related cataract type check BP at home AM PM documentLisinopril 40mgRoutine LabsRTC Lab F/U BP check 2 weeks PRN Related to Essential (primary) hypertension Continue present therapy Related to Type 2 diabetes mellitus without complications Dietary management e ducation, guidance, and counseling Related to Body mass index (BMI) 31.0-31.9, adult Giving encouragement to exercise Related to Body mass index (BMI) 31.0-31.9, adult Giving encouragement to exercise Related to Body mass index (BMI) 31.0-31.9, adult Dietary management e ducation, guidance, and counseling Related to Body mass index (BMI) 31.0-31.9, adult Dietary management e ducation, guidance, and counseling Related to Body mass index (BMI) 31.0-31.9, adult Giving encouragement to exercise Related to Body mass index (BMI) 31.0-31.9, adult Dietary needs education Related to Body mass index (BMI) 31.0-31.9, adult Giving encouragement to exercise Related to Body mass index (BMI) 31.0-31.9, adult Dietary management e ducation, guidance, and counseling Related to Body mass index (BMI) 30.0-30.9, adult Dietary needs education Related to Body mass index (BMI) 30.0-30.9, adult Giving encouragement to exercise Related to Body mass index (BMI) 30.0-30.9, adult Giving encouragement to exercise Related to Body mass index (BMI) 30.0-30.9, adult Dietary needs education Related to Body mass index (BMI) 30.0-30.9, adult Dietary management e ducation, guidance, and counseling Related to Body mass index (BMI) 30.0-30.9, adult Dietary needs education Related to Obesity, unspecified Giving encouragement to exercise Related to Obesity, unspecified Dietary needs education Related to Obesity, unspecified Giving encouragement to exercise Related to Obesity, unspecified Hypertension education Diabetes II education Hypertension education Assessments Type Assessment Date No Information Goals Health Concern Goal Type Priority Status Date Type 2 diabetes mellitus without complications - E11.9 manage blood sugar Negotiated Goal Patient: High priority, Provider: High priority New Patient Care Teams Name Effective Dates (start - stop) Status Members No Information
--- OUTSIDE RECORDS SUMMARY | 2025-05-02 09:00 | XMS_ITS | Encounter Summary ---
Author Organization [employer] Address [address] [place] [address] Care Team Providers Care Criminology Teacher Name Role Phone Name, Jayjay JUAREZ Primary Care Provider [phone] Reason for Visit * Reason Comments Extraction Encounter Details Date Type Department Care Team ([facility] st Contact Info) Description 05/02/2025 9:00 AM EDT Office Visit [facility]ULT DENTAL [address] [place] [address] Joya Zaragoza, RUY [address] [place] [address] Social History Tobacco Use Types Packs/Day Years Used Date Smoking Tobacco: Never Passive Smoke Exposure: Never Smokeless Tobacco: Never Alcohol Use Standard Drinks/Week Comments Never 0 (1 standard drink = 0.6 oz pur e alcohol) Alcohol Answer Date Recorded Frequency of Alcohol Consumption Not on file 01/07/2024 Average Number of Drinks Not on file 024 Frequency of Binge Drinking Not on file 12/11 Score 0 01/07/2024 Depression Answer Date Recorded Patient Health Questionnaire-9 Score 20 01/11/2025 Patient Health Questionnaire-9 Score 20 01/11/2025 Last PHQ-9: Questionnaire Data Not on file 0 01/11/2025 Housing Stability Answer Date Recorded What is your housing situation today? I have jane horn 01/11/[address] you li ve. Do you have problems with any of the following? Pests such as bugs, ants, or mice 01/11/2025 Food Insecurity Answer Date Recorded Within the past 12 months, y ou worried that your food would run out before you got money to buy more: Sometimes True 2024 Within the past 12 months,th e food you bought just didn't last and you didn't have enough money to get more: Never True 01/11/2025 Transportation Answer Date Recorded In the past 12 months, has l ack of transportation kept you from medical appts, meetings, work or from getting things needed for daily living? No 01/11/2025 Utilities Answer Date Recorded In the past 12 months, has t he [employer], gas, oil or water [employer] threatened to shut off services in your home? No 01/11/2025 Depression Answer Date Recorded Patient Health Questionnaire-2 Score 5 01/11/2025 Internet Access Answer Date Recorded Internet Access Q1 Yes 01/11/2025 Internet Access Q2 Not on file 01/11/2025 Sex and Gender Information Value Date Recorded Sex Assigned at Male 05/11/2022 10:20 AM EDT Legal Sex Male 10:20 AM EDT Gender Identity Male 05/11/2022 10:20 AM EDT Sexual Orientation Straight 05/11/2022 10 :20 AM EDT documented as of this encounter Last Filed Vital Signs Vital Sign Reading Time Taken Comments Blood Pressure 140/80 05/02/2025 8:55 AM EDT Pulse 68 05/02/2025 8:55 AM EDT Temperature - - Respiratory Rate - - Oxygen Saturation - - Inhaled Oxygen Concentration - - Weight - - Height - - Body Mass Index - - documented in this encounter Progress Notes * Joya Zaragoza DDS - 05/02/2025 9:00 AM EDT Dental procedures in this visit [id number] - EXTRACTION, ERUPTED TOOTH OR EXPOSED ROOT (ELEVATION/FORCEPS REMOVAL) 23 (Completed) Service provider: Joya Zaragoza DDS Billing provider: Andre Carter DMD [id number] - EXTRACTION, ERUPTED TOOTH OR EXPOSED ROOT (ELEVATION/FORCEPS REMOVAL) 24 (Completed) Service provider: Joya Zaragoza DDS Billing provider: Andre Carter DMD [id number] - EXTRACTION, ERUPTED TOOTH OR EXPOSED ROOT (ELEVATION/FORCEPS REMOVAL) 25 (Completed) Service provider: Joya Zaragoza DDS Billing provider: Andre Carter DMD [id number] - EXTRACTION, ERUPTED TOOTH OR EXPOSED ROOT (ELEVATION/FORCEPS REMOVAL) 26 (Completed) Service provider: Joya Zaragoza DDS Billing provider: nAdre Carter DMD [id number] - CASE PRESENTATION, DETAILED AND EXTENSIVE TREATMENT PLANNING (Completed) Service provider: Joya Zaragoza DDS Billing provider: Andre Carter DMD Patient ID: Kj Hardin is a 65 y.o. male. Time Out: Date: 05/02/2025 Location: [facility] Tooth: #23, #24, #25, and #26 Procedure: Extraction Verified the above with patient, assistant district attorney, and provider. Confirmed via patient's chart, intraorally and by radiographs. Nuclear Fuel Processing Technician: not applicable Simple Extraction of # 23--[address] done [address] [place] [address] Dr[address] Joya Zaragoza DDS Risk, benefits, and alternatives discussed with the patient. CONSENT FORM INITIALED & SIGNED BY THE PATIENT AND COUNTERSIGNED BY Dr. Joya Zaragoza DDS Medical history: Reviewed in EHR Vitals: Blood pressure (!) 140/80, pulse 68. Allergies: Reviewed in EHR Medications: Reviewed in EHR - Local infiltration with 1 1/2 carpule 4% septocaine/articaine 1:100,000 epinephrine - Gingival fibers using periosteal elevator. - Tooth luxated using straight elevator. - Tooth extracted using: Peak Forceps, Periotome - Curettage done - Area checked for sharp bony edges / filing of sharp bony edges done. - Irrigation done using Saline. - Sutures placed: resorb able gut sutures placed in the area of # 23-26 - Hemostasis achieved before dismissal. Patient comfortable to walk. - Gauze pack placed. - post op instructions (written + verbal), extra pack of gauze given. - Rx: Amoxicillin 500mg Patient satisfied, left in stable condition NV: Continue with upper EXT's. Provider: Dr. Joya Zaragoza DDS Rn Ante Partum: Jojo Supervising Dentist: Dr. Carter * Andre Carter DMD - 05/02/2025 9:00 AM EDT I saw and evaluated the patient, participating in the bob portions of the service. I reviewed the resident???s note. I agree with the resident???s findings and plan. Andre Carter DMD documented in this encounter Plan of Treatment Upcoming Encounters Date Type Department Care Team (Late st Contact Info) Description 06/12/2025 11:00 AM EST Office Visit [address] [address] NameJayjay MD [address] [place] [address] 06/20/2025 10:00 AM EST Office Visit [facility]ULT DENT[facility] [address] [place], [place] [phone] Joya Zaragoza DDS [address] [place] [address] 08/08/2025 10:00 AM EST Clinical Support [address] [address] Charisse Crisostomo RN documented as of this encounter Goals Goal Patient Goal Type Associated Problems Recent Progress Patient-Stated? Author Blood Pressure < 140/90 Blood Pressure 140/80(2024 8:55 AM EDT) No Heriberto Arellano Hemoglobin A1c < 7 Result Component 6.7( 11:02 AM EDT) No Heriberto Arellano documented as of this encounter Procedures Procedure Name Priority Date/Time Associated Diagnosis Comments 26 EXTRACTION, ERUPTED TOOTH OR EXPOSED ROOT (ELEVATION/FORCEPS REMOVAL) Routine 05/02/2025 9:00 AM EDT 25 EXTRACTION, ERUPTED TOOTH OR EXPOSED ROOT (ELEVATION/FORCEPS REMOVAL) Routine 05/02/2025 9:00 AM EDT 24 EXTRACTION, ERUPTED TOOTH OR EXPOSED ROOT (ELEVATION/FORCEPS REMOVAL) Routine 05/02/2025 9:00 AM EDT 23 EXTRACTION, ERUPTED TOOTH OR EXPOSED ROOT (ELEVATION/FORCEPS REMOVAL) Routine 05/02/2025 9:00 AM EDT CASE PRESENTATION, DETAILED AND EXTENSIVE TREATMENT PLANNING Routine 05/02/2025 9:00 AM EDT documented in this encounter Visit Diagnoses Not on filedocumented in this encounter Additional Health Concerns Assessment Noted Time PHQ-9 Depression Total Score: 20 025 11:40 AM EDT documented as of this encounter Care Teams Criminology Teacher Relationship Specialty Start Date End Date Name, MD Jayjay [address] [place] [address] PCP - General Family Medicine 07/26/15 documented as of this encounter
--- OUTSIDE RECORDS SUMMARY | 2025-05-07 10:00 | XMS_ITS | Encounter Summary ---
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 The patient last took Percocet on: 05/07/2025 Medication is: 75% % effective at alleviating pain. OBJECTIVE: ASSOCIATE EDITOR checked: 05/07/2025 Pill count not completed for Percocet , pt forgot to bring his medication to that appointment. 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 Pt will come back in today @ 2:30p for his pill count. Anticipated he would have 26remaining. 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 Tier: 2 Current Medications[1] Smoking status: Denies ETOH use: Yes, rare, will have 2-3 beers Illicit substances: Denies Marijuana use: No Lab Results Component Value Date POCTHC Negative 05/07/2025 POCCOCAINEUR Negative 05/07/2025 POCOPIATEUR Negative 05/07/2025 DOAUR Negative 05/07/2025 POCAMPHETAMI Negative 05/07/2025 POCBENZODIUR Negative 05/07/2025 POCBARBSCRN Negative 05/07/2025 POCMETHADOUR Positive (A) 05/07/2025 POCBUPSCRN Negative 05/07/2025 POCTCAUR Negative 05/07/2025 POCMDMAUR Negative 05/07/2025 POCOXYCODONE Positive (A) 05/07/2025 POCPHENCYCUR Negative 05/07/2025 PROPOXUR Negative 05/07/2025 FENTANYLURIN Positive (A) 05/07/2025 Reviewed UTOX results. Pt denies any illicit substance use. Explained I would send his urine out for FENT & MTD confirmation. Reviewed previous UTOX results where pt had tested pos for MTD & FENT, but lab confirmations all came back negative. Pt aware I will call him if his results are abnormal. ASSESSMENT: Encounter Diagnosis Name Primary? Long-term current use of opiate analgesic Yes PLAN: Information on pain group given: Yes Information on acupuncture given: Yes Narcan education provided: Yes Narcan prescription: active Will update PCP with BPI scoring, forgotten meds and UTOX results. Controlled substance agreement reviewed and signed. A copy was given to the patient. Kj Hardin will continue taking medications as prescribed and has verbalized understanding of care plan. Future Appointments Date Time Provider Department Center 06/12/2025 11:00 AM Jayjay Freeman MD [facility] 06/20/2025 10:00 AM Joya Zaragoza DDS [facility] 08/08/2025 10:00 AM Charisse Crisostomo RN [facility]IC[facility] Charisse Crisostomo RN Pt returned at 2:30pm for his percocet count, translation provided by staff member Theresa Henriquez Pthas 11 percocet remaining, anticipated he would have 26. Pt denies over using his Percocet. He did state that people do come into his house. Reviewed with patient that its important he keep his medication safe and secure, advised to purchase a lock box. Pt stated he was going to do that. Will update PCP with Percocet count. [1] Current Outpatient Medications: albuterol (2.5 MG/3ML) 0.083% nebulizer solution, INHALE 1 VIAL (3ML) VIA NEBULIZER EVERY 6 HOURS NEEDED FOR SHORTNESS OF BREATH OR WHEEZING (BULK) (Patient not taking: Reported on 03/22/2025), Disp: 90 mL, Rfl: 5 albuterol (Ventolin HFA) 108 (90 Base) MCG/ACT inhaler, INHALE ONE PUFF BY MOUTH EVERY MORNING , ATNOON AND AT BEDTIME. INHALE TWO PUFFS BY MOUTH EVERY 4 TO 6 HOURS NEEDED FOR SHORTNESS OF BREATHOR WHEEZING (BULK), Disp: 18 g, Rfl: 3 amoxicillin (Amoxil) 500 MG capsule, Take 1 capsule (500 mg) by mouth every 8 (eight) hours for 7 days., Disp: 21 capsule, Rfl: 0 ARIPiprazole (Abilify) 2 MG tablet, 2 mg., Disp: , Rfl: ASPIRIN 81 MG chewable tablet, Chew 81 mg Once per day. (Patient not taking: Reported on 03/22/2025), Disp: , Rfl: atorvastatin (Lipitor) 40 MG tablet, TAKE ONE TABLET BY MOUTH EVERY MORNING ^1R1, Disp: 30 tablet, Rfl: 11 Blood Glucose Monitoring Suppl (Synos TechnologyTouch Verio) w/Device kit, USE TO TEST BLOOD SUGAR THREE TIMES DAILY, Disp: 1 kit, Rfl: 0 carboxymethylcellulose (Refresh Plus) 0.5 % ophthalmic solution, , Disp: , Rfl: chlorthalidone (Hygroton) 25 MG tablet, TAKE ONE TABLET BY MOUTH EVERY DAY ^1R1, Disp: 30 tablet, Rfl: 11 clonazePAM (KlonoPIN) 1 MG tablet, Take 1 tablet by mouth once daily as needed, Disp: , Rfl: Diclofenac Sodium 1 % gel, Apply once a day to the affected area, Disp: 50 g, Rfl: 1 dilTIAZem CD (Cardizem CD) 240 MG 24 hr capsule, TAKE ONE CAPSULE BY MOUTH EVERY DAY ^1R1, Disp: 30capsule, Rfl: 11 DULoxetine (Cymbalta) [address] capsule, 60 in the AM and 30 at night, Disp: , Rfl: DULoxetine (Cymbalta) [address] capsule, Take one capsule by mouth once in the morning (Patient not taking: Reported on 03/22/2025), Disp: , Rfl: enalapril (Vasotec) 20 MG tablet, TAKE ONE TABLET BY MOUTH TWICE A DAY, Disp: 180 tablet, Rfl: 3 fluticasone (Flonase) 50 MCG/ACT nasal spray, Administer 2 sprays into each nostril in the morning.Shake gently. Before first use, prime pump. After use, clean tip and replace cap. (Patient not taking: Reported on 03/22/2025), Disp: 16 g, Rfl: 2 FreeStyle lancets, 1 each by Other route 4 times daily. USE TO TEST BLOOD SUGAR FOUR TIMES A DAY, Disp: 100 each, Rfl: 11 glucose blood (FREESTYLE LITE) test strip, CHECK BLOOD SUGAR FOUR TIMES DAILY, Disp: 100 strip, Rfl: 11 glucose blood test strip, USE TO TEST BLOOD SUGAR THREE TIMES A DAY, Disp: 100 each, Rfl: 11 hydroCHLOROthiazide (HYDRODiuril) 25 MG tablet, Take 25 mg by mouth Once per day., Disp: , Rfl: levothyroxine (Synthroid, Levoxyl) 100 MCG tablet, TAKE ONE TABLET BY MOUTH EVERY DAY ^1R1, Disp: 30 tablet, Rfl: 11 lidocaine (Lidoderm) 5 % patch, APPLY ONE PATCH TOPICALLY IN THE MORNING (BULK), Disp: 30 patch, Rfl: 5 loratadine (Claritin) 10 MG tablet, Take 10 mg by mouth Once per day. (Patient not taking: Reportedon 03/22/2025), Disp: , Rfl: metFORMIN (Glucophage) 500 MG tablet, TAKE ONE TABLET BY MOUTH TWICE A DAY WITH MEALS, Disp: 180 tablet, Rfl: 3 methocarbamol (Robaxin) 500 MG tablet, TAKE ONE TABLET BY MOUTH EVERY 8 HOURS (VIAL), Disp: 90 tablet, Rfl: 0 metoprolol succinate XL (Toprol-XL) 100 MG 24 hr tablet, TAKE ONE TABLET BY MOUTH EVERY DAY, Disp: 90 tablet, Rfl: 3 naloxone (Narcan) 4 mg/0.1 mL nasal spray, USE 1 SPRAY IN ONE NOSTRIL A SINGLE DOSE. MAY REPEAT DOSE EVERY 2 TO 3 MINUTES IN ALTERNATING NOSTRILS WHEN EMERGENCY MEDICAL ASSISTANCE BECOMES AVAILABLE. (BULK), Disp: 2 each, Rfl: 3 naproxen (Naprosyn) 500 MG tablet, TAKE ONE TABLET BY MOUTH TWICE A DAY WITH FOOD, Disp: 56 tablet,Rfl: 0 omeprazole (PriLOSEC) [address] capsule, TAKE ONE CAPSULE BY MOUTH EVERY DAY ^1R1, Disp: 30 capsule,Rfl: 11 oxyCODONE-acetaminophen (Percocet) 5-325 MG tablet, Take 1 tablet by mouth every 8 (eight) hours ifneeded for severe pain for up to 28 days. Do not start before April 17, 2025., Disp: 84 tablet, Rfl: 0 Ozempic, 1 MG/DOSE, 4 MG/3ML solution pen-injector, INJECT 1MG UNDER THE SKIN ONCE WEEKLY (BULK), Disp: 6 mL, Rfl: 11 pregabalin (Lyrica) 150 MG capsule, TAKE ONE CAPSULE BY MOUTH THREE TIMES A DAY (VIAL), Disp: 90 capsule, Rfl: 0 Spacer/Aero-Holding Chambers (OptiChamber Micki) misc, 1 each every 4 (four) hours if needed (asthma). (Patient not taking: Reported on 03/22/2025), Disp: 1 each, Rfl: 0 Symbicort 80-4.5 MCG/ACT inhaler, Rinse mouth with water after use to reduce aftertaste and incidence of candidiasis. Do not swallow.INHALE TWO PUFFS BY MOUTH EVERY MORNING & AT BEDTIME. RINSE MOUTH WITH WATER AFTER USE TO REDUCE AFTER TASTE AN, Disp: 10.2 g, Rfl: 11 traZODone (Desyrel) 50 MG tablet, Take 1 tablet by mouth nightly, Disp: , Rfl: documented in this encounter Plan of Treatment Upcoming Encounters Date Type Department Care Team (Late st Contact Info) Description 06/12/2025 11:00 AM EST Office Visit [facility] MEDICINE [address] [place] [address] Name, MD Jayjay [address] [place] [address] 06/20/2025 10:00 AM EST Office Visit [facility] ADULT DENTAL [address] [place] [address] Joya Zaragoza DDS [address] [place] [address] 08/08/2025 10:00 AM EST Clinical Support [address] [address] Charisse Crisostomo, LISA Scheduled Orders Name Type Priority Associated Diagnoses Orde r Schedule Drug Monitoring, Fentanyl, with Confirmation, Urine Lab Routine Long-term current use of opiate analgesic Ordered: 05/07/2025 documented as of this encounter Goals Goal Patient Goal Type Associated Problems Recent Progress Patient-Stated? Author Blood Pressure < 140/90 Blood Pressure 140/80(2024 8:55 AM EDT) No Heriberto Arellano Hemoglobin A1c < 7 Result Component 6.7( 11:02 AM EDT) No Heriberto Arellano documented as of this encounter Procedures Procedure Name Priority Date/Time Associated Diagnosis Comments POCT GLORIA-14 URINE DRUG SCREEN Routine 05/07/2025 10:48 AM EDT Long-term current use of opiate analgesic METHADONE SCREEN, URINE Routine 05/07/2025 10:00 AM EDT Long-term current use of opiate analgesic documented in this encounter Results * (ABNORMAL) POCT GLORIA-14 Urine Drug Screen (05/07/2025 10:48 AM EDT) THC Negative Negative Cocaine Screen, Urine Negative Negative Opiate Screen, Urine Negative Negative Methamphetamine Screen Urine Negative Negative Amphetamine Screen, Urine Negative Negative Benzodiazepines Screen, Urine Negative Negative Barbiturate Screen, Urine Negative Negative Methadone Screen, Urine Positive(A) Negative Buprenophine Screen, Urine Negative Negative TCA, Urine Negative Negative MDMA Urine Negative Negative ng/mL Oxycodone Screen, Urine Positive(A) Negative Comment: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 04/17/26 Internal Pass Control us Jayjay Freeman MD POINT OF CARE TEST ENTER/EDIT OR DERABLES Final Result * Drug Monitoring, Methadone Metabolite, Screen, Urine (05/07/2025 10:00 AM EDT) Methadone Screen, Urine Not Detected Not Detect ng/mL [facility] Comment:Methadone cut-off is 300 ng/mL.Positive results are unconfirmed and should not be used fornon-medical purposes. Urine (Urine, Random) 05/07/2025 10:00 AM EDT 05/07/2025 4:36 PM EDT us Jayjay Freeman MD LAB URINE ORDERABLES Final Resul t [facility] [address] [place] [phone] documented in this encounter Visit Diagnoses Diagnosis Long-term current use of opiate analgesic- Primary Encounter for long-term (current) use of other medications documented in this encounter Additional Health Concerns Assessment Noted Time PHQ-9 Depression Total Score: 20 01/11/2 025 11:40 AM EDT documented as of this encounter Care Teams Specialized Language Instructor Relationship Specialty Start Date End Date Name, MD Jayjay [address] [place] [address] PCP - General Family Medicine 07/26/15 documented as of this encounter
--- OUTSIDE RECORDS SUMMARY | 2025-05-07 19:17 | XMS_ITS | Encounter Summary ---
Author Organization [employer] Address [address] [place] [address] Care Team Providers Care Integrated Logistics Programs Director Name Role Phone Name, Jayjay JUAREZ Primary Care Provider [phone] Reason for Visit * Reason Comments Med Refill Encounter Details Date Type Department Care Team ([facility] st Contact Info) Description 04/21/2024 Refill [facility] MEDICINE [address] [place], [place] [phone] Name, MD Jayjay [address] [place] [address] Chronic back pain, unspecified back location, unspecified back pain laterality; Chronic pain syndrome; Asthma, unspecified asthma severity, unspecified whether complicated, unspecified whether persistent; Chronic thoracic back pain, unspecified back pain laterality Social History Tobacco Use Types Packs/Day Years [...] Description 06/12/2025 11:00 AM EST Office Visit [address] [address] Name, MD Jayjay [address] [place] [phone] 06/20/2025 10:00 AM EST Office Visit [facility] ADULT DENTAL [address] [place] [address] Joya Zaragoza DDS [address] [place] [phone] 08/08/2025 10:00 AM EST Clinical Support [address] [address] Charisse Crisostomo, RN documented as of this encounter Goals Goal Patient Goal Type Associated Problems Recent Progress Patient-Stated? Author Blood Pressure < 140/90 Blood Pressure 140/80(2024 8:55 AM EDT) No Heriberto Arellano Hemoglobin A1c < 7 Result Component 6.7( 11:02 AM EDT) No Heriberto Arellano documented as of this encounter Visit Diagnoses Diagnosis Chronic back pain, unspecified back location, unspecified back pain laterality Chronic pain syndrome Asthma, unspecified asthma severity, unspecified whether complicated, unspecified whether persistent Chronic thoracic back pain, unspecified back pain laterality documented in this encounter Additional Health Concerns Assessment Noted Time PHQ-9 Depression Total Score: 6 09/27/19 24 9:51 AM EDT documented as of this encounter Care Teams Integrated Logistics Programs Director Relationship Specialty Start Date End Date Name, MD Jayjay [address] [place] [phone] PCP - General Family Medicine 07/26/15 documented as of this encounter
--- OUTSIDE RECORDS SUMMARY | 2025-05-07 19:17 | XMS_ITS | Patient Health Record ---
Author Organization [facility] Address [address] [place] [phone] Care Team Providers Care [employer] Name Role Phone Leeann Rahman MD Primary Care Provider Kolton Khan [phone] Reason For Referral No Information Plan Of Treatment No Information
--- OUTSIDE RECORDS SUMMARY | 2025-05-07 19:17 | XMS_ITS | Encounter Summary ---
Author Organization [employer] Address [address] [facility] [address] 7t [place] [address] Care Team Providers Care Rv Technician Name Role Phone Name, Jayjay JUAREZ Primary Care Provider [phone] Reason for Visit * Reason Onset Date Comments Med Refill 05/10/2023 Encounter Details Date Type Department Care Team ([facility] st Contact Info) Description 05/10/2023 Telephone [facility] [address] [place], [place] [phone] Name, MD Jayjay 230 [place] [address] Med Refill Social History Tobacco Use Types Packs/Day Years Used Date Smoking Tobacco: Never Smokeless Tobacco: Never Alcohol Use Standard Drinks/Week Comments Never 0 (1 standard drink = 0.6 oz pur e alcohol) Depression Answer Date Recorded Patient Health Questionnaire-9 Score 13 10/06/2022 Housing Stability Answer Date Recorded What is your housing situation today? I have jane horn 05/03/[address] you li ve. Do you have problems with any of the following? None of the above 05/03/2023 Food Insecurity Answer Date Recorded Within the past 12 months, y ou worried that your food would run out before you got money to buy more: Never True 05/03/2023 Within the past 12 months,th e food you bought just didn't last and you didn't have enough money to get more: Never True Transportation Answer Date Recorded In the past 12 months, has l ack of transportation kept you from medical appts, meetings, work or from getting things needed for daily living? No 05/03/2023 Utilities Answer Date Recorded In the past 12 months, has t he electric, gas, oil or water company threatened to shut off services in your home? Yes 04/20/2023 Depression Answer Date Recorded Patient Health Questionnaire-2 Score 6 10/06/2022 Sex and Gender Information Value Date Recorded Sex Assigned at Male 05/11/2022 10:20 AM EDT Legal Sex Male 10:20 AM EDT Gender Identity Male 05/11/2022 10:20 AM EDT Sexual Orientation Straight 05/11/2022 10 :20 AM EDT documented as of this encounter Miscellaneous Notes * Telephone Encounter - Rita Holly LPN - 05/10/2023 3:19 PM EDT Trulicity was sent to [facility] on 04/01/23 with 11 refills and test strips were sent on 04/09/23 with 11 refills. * Telephone Encounter - Ronda Anaya - 05/10/2023 2:19 PM EDT Tc from pt requesting med refill on; [employer] test strip dulaglutide (Trulicity) 4.5 MG/0.5ML solution pen-injector documented in this encounter Plan of Treatment Upcoming Encounters Date Type Department Care Team (Late st Contact Info) Description 06/12/2025 11:00 AM EST Office Visit [facility] [address] [place] [address] Name, MD Jayjay [address] [place] [address] 06/20/2025 10:00 AM EST Office Visit [facility] CHC ADULT DENTAL [address] [place] [address] Joya Zaragoza DDS 230 [place] [address] 08/08/2025 10:00 AM EST Clinical Support [facility] [address] [place] [address] Charisse Crisostomo, LISA documented as of this encounter Visit Diagnoses Diagnosis Chronic cough Cough Chronic pain syndrome documented in this encounter Additional Health Concerns Assessment Noted Time PHQ-9 Depression Total Score: 13 023 10:12 AM EDT documented as of this encounter Care Teams Rv Technician Relationship Specialty Start Date End Date Name, MD Jayjay 230 [place] [address] PCP - General Family Medicine 07/26/15 documented as of this encounter
--- OUTSIDE RECORDS SUMMARY | 2025-05-07 19:17 | XMS_ITS | Encounter Summary ---
Author Organization [employer] Address 75 [facility] 7t [place] [address] Care Team Providers Care Crystal Slicer Name Role Phone Name, Jayjay JUAREZ Primary Care Provider [phone] Reason for Visit * Reason Comments Med Refill Encounter Details Date Type Department Care Team ([facility] st Contact Info) Description 04/12/2024 Refill [facility] 230 [place], [place] [phone] Name, MD Jayjay [address] [place] [address] Chronic back pain, unspecified back location, unspecified back pain laterality Social History Tobacco [...] Description 06/12/2025 11:00 AM EST Office Visit [facility] [address] [place] [address] Name, MD Jayjay [address] [place] [address] 06/20/2025 10:00 AM EST Office Visit [facility] ADULT DENTAL [address] [place] [address] Joya Zaragoza DDS [address] [place] [address] 08/08/2025 10:00 AM EST Clinical Support [address] [address] Charisse Crisostomo, RN documented as of this encounter Goals Goal Patient Goal Type Associated Problems Recent Progress Patient-Stated? Author Blood Pressure < 140/90 Blood Pressure 140/80(2024 8:55 AM EDT) No Heriberto Arellano Hemoglobin A1c < 7 Result Component 6.7( 5 11:02 AM EDT) No Heriberto Arellano documented as of this encounter Visit Diagnoses Diagnosis Chronic back pain, unspecified back location, unspecified back pain laterality documented in this encounter Additional Health Concerns Assessment Noted Time PHQ-9 Depression Total Score: 6 09/27/19 24 9:51 AM EDT documented as of this encounter Care Teams Crystal Slicer Relationship Specialty Start Date End Date Name, MD Jayjay [address] [place] [address] PCP - General Family Medicine 07/26/15 documented as of this encounter
--- OUTSIDE RECORDS SUMMARY | 2025-05-07 19:17 | XMS_ITS | Encounter Summary ---
Author Organization [employer] Address [address] [facility] [address] 7t [place] [address] Care Team Providers Care Stock Dealer Name Role Phone Name, Jayjay JUAREZ Primary Care Provider [phone] Reason for Visit * Reason Comments Med Refill Encounter Details Date Type Department Care Team ([facility] st Contact Info) Description 05/07/2023 Refill [facility] 230 [place], [place] [phone] Name, MD Jayjay 230 [place] [address] Chronic pain syndrome Social History Tobacco Use [...] 11:00 AM EST Office Visit [facility] [address] [place] [address] Jayjay Freeman MD [address] [place] [address] 06/20/2025 10:00 AM EST Office Visit [facility] ADULT DENTAL [address] [place] [address] Joya Zaragoza DDS [address] [place] [address] 08/08/2025 10:00 AM EST Clinical Support [address] [address] Charisse Crisostomo, RN documented as of this encounter Visit Diagnoses Diagnosis Chronic pain syndrome documented in this encounter Additional Health Concerns Assessment Noted Time PHQ-9 Depression Total Score: 13 023 10:12 AM EDT documented as of this encounter Care Teams Stock Dealer Relationship Specialty Start Date End Date Jayjay Freeman MD [address] [place] [address] PCP - General Family Medicine 07/26/15 documented as of this encounter
--- OUTSIDE RECORDS SUMMARY | 2025-05-07 19:17 | XMS_ITS | Encounter Summary ---
Author Organization [employer] Address 75 [facility] 7t [place] [address] Care Team Providers Care Wall Taper Helper Name Role Phone Name, Jayjay JUAREZ Primary Care Provider [phone] Reason for Visit * Reason Comments Med Refill Encounter Details Date Type Department Care Team ([facility] st Contact Info) Description 05/10/2024 Refill [facility] MEDICINE 230 [place], [place] [phone] Name, MD Jayjay 230 [place] [address] Chronic pain syndrome; Chronic thoracic back pain, unspecified back pain laterality; Chronic back pain, unspecified back location, unspecified back pain laterality; Chronic left-sided thoracic back pain Social History Tobacco Use Types Packs/Day Years [...] Description 06/12/2025 11:00 AM EST Office Visit [address] [address] Name, MD Jayjay [address] [place] [address] 06/20/2025 10:00 AM EST Office Visit [facility] CHC ADULT DENTAL [address] [place] [address] Joya Zaragoza DDS [address] [place] [address] 08/08/2025 10:00 AM EST Clinical Support [address] [address] Charisse Crisostomo, LISA documented as of this encounter Goals Goal Patient Goal Type Associated Problems Recent Progress Patient-Stated? Author Blood Pressure < 140/90 Blood Pressure 140/80(2024 8:55 AM EDT) No Heriberto Arellano Hemoglobin A1c < 7 Result Component 6.7( 11:02 AM EDT) No Heriberto Arellano documented as of this encounter Visit Diagnoses Diagnosis Chronic pain syndrome Chronic thoracic back pain, unspecified back pain laterality Chronic back pain, unspecified back location, unspecified back pain laterality documented in this encounter Additional Health Concerns Assessment Noted Time PHQ-9 Depression Total Score: 6 09/27/19 24 9:51 AM EDT documented as of this encounter Care Teams Wall Taper Helper Relationship Specialty Start Date End Date Name, MD Jayjay 230 [place] [address] PCP - General Family Medicine 07/26/15 documented as of this encounter
--- OUTSIDE RECORDS SUMMARY | 2025-05-07 19:17 | XMS_ITS | Encounter Summary ---
Author Organization [employer] Address [address] [facility] [address] 7t [place] [address] Care Team Providers Care Spine Surgeon Name Role Phone Name, Jayjay JUAREZ Primary Care Provider Reason for Visit * Reason Comments Med Refill Encounter Details Date Type Department Care Team ([facility] st Contact Info) Description 05/11/2023 Refill [facility] MEDICINE 230 [place], [place] [phone] Name, MD Jayjay 230 [place] [address] Chronic pain syndrome Social History Tobacco Use [...] Description 06/12/2025 11:00 AM EST Office Visit [facility] MEDICINE [address] [place] [address] Jayjay Freeman MD [address] [place] [address] 06/20/2025 10:00 AM EST Office Visit [facility] CHC ADULT DENTAL [address] [place] [address] Joya Zaragoza DDS [address] [place] [address] 08/08/2025 10:00 AM EST Clinical Support [address] [address] Charisse Crisostomo, RN documented as of this encounter Visit Diagnoses Diagnosis Chronic pain syndrome documented in this encounter Additional Health Concerns Assessment Noted Time PHQ-9 Depression Total Score: 13 023 10:12 AM EDT documented as of this encounter Care Teams Spine Surgeon Relationship Specialty Start Date End Date Jayjay Freeman MD [address] [place] [address] PCP - General Family Medicine 07/26/15 documented as of this encounter
--- OUTSIDE RECORDS SUMMARY | 2025-05-07 19:17 | XMS_ITS | Encounter Summary ---
Author Organization [employer] Address [address] [facility] [address] 7t [place] [address] Care Team Providers Care Superintendent Meter Tests Name Role Phone Name, Jayjay JUAREZ Primary Care Provider Reason for Visit * Reason Comments Med Refill Encounter Details Date Type Department Care Team ([facility] st Contact Info) Description 06/15/2023 Refill [facility] MEDICINE 230 [place], [place] [phone] Name, MD Jayjay 230 [place] [address] Chronic pain syndrome Social History Tobacco Use [...] Description 06/12/2025 11:00 AM EST Office Visit [facility] MEDICINE [address] [place] [address] Jayjay Freeman MD [address] [place] [address] 06/20/2025 10:00 AM EST Office Visit [facility] CHC ADULT DENTAL [address] [place] [address] Joya Zaragoza DDS [address] [place] [address] 08/08/2025 10:00 AM EST Clinical Support [address] [address] Charisse Crisostomo, RN documented as of this [...] documented as of this encounter Care Teams Superintendent Meter Tests Relationship Specialty Start Date End Date NameJayjay MD [address] [place] [address] PCP - General Family Medicine 07/26/15 documented as of this encounter
--- OUTSIDE RECORDS SUMMARY | 2025-05-07 19:17 | XMS_ITS | Encounter Summary ---
Author Organization [employer] Address 75 [facility] 7t [place] [address] Care Team Providers Care Shot Core Drill Operator Helper Name Role Phone Name, Jayjay JUAREZ Primary Care Provider [phone] Reason for Visit * Reason Comments Med Refill Encounter Details Date Type Department Care Team ([facility] st Contact Info) Description 04/12/2024 Refill [facility] MEDICINE 230 [place], [place] [phone] Name, MD Jayjay 230 [place] [address] Chronic pain syndrome; Asthma, unspecified asthma severity, unspecified whether complicated, unspecified whether persistent Social History Tobacco Use Types Packs/Day Years [...] the past 12 months, has t he m-spatial, gas, oil or water company threatened to [...] Description 06/12/2025 11:00 AM EST Office Visit [address] [address] Name, MD Jayjay [address] [place] [address] 06/20/2025 10:00 AM EST Office Visit [facility] ADULT DENTAL 505 [place] [address] Joya Zaragoza DDS [address] [place] [address] 08/08/2025 10:00 AM EST Clinical Support [address] [address] Charisse Crisostomo, RN documented as of this encounter Goals Goal Patient Goal Type Associated Problems Recent Progress Patient-Stated? Author Blood Pressure < 140/90 Blood Pressure 140/80(2024 8:55 AM EDT) No Heriberto Arellano Hemoglobin A1c < 7 Result Component 6.7( 11:02 AM EDT) No Heriberto Arellano documented as of this encounter Visit Diagnoses Diagnosis Chronic pain syndrome Asthma, unspecified asthma severity, unspecified whether complicated, unspecified whether persistent documented in this encounter Additional Health Concerns Assessment Noted Time PHQ-9 Depression Total Score: 6 09/27/19 24 9:51 AM EDT documented as of this encounter Care Teams Shot Core Drill Operator Helper Relationship Specialty Start Date End Date Name, MD Jayjay 230 [place] [address] PCP - General Family Medicine 07/26/15 documented as of this encounter
--- OUTSIDE RECORDS SUMMARY | 2025-05-07 19:17 | XMS_ITS | Encounter Summary ---
Author Organization [employer] Address 75 [facility] 7t [place] [address] Care Team Providers Care Sanitation Inspector Name Role Phone Name, Jayjay JUAREZ Primary Care Provider [phone] Reason for Visit * Reason Comments Med Refill Encounter Details Date Type Department Care Team ([place] [facility] st Contact Info) Description 05/09/2024 Refill [facility] MEDICINE 230 [place], [place] [phone] Name, MD Jayjay 230 [place] [address] Chronic back pain, unspecified back location, unspecified back pain laterality; Chronic thoracic back pain, unspecified back pain laterality; Chronic left-sided thoracic back pain; Chronic pain syndrome Social History Tobacco Use [...] Description 06/12/2025 11:00 AM EST Office Visit [address] [address] Name, MD Jayjay [address] [place] [address] 06/20/2025 10:00 AM EST Office Visit [facility] CHC ADULT DENTAL [address] [place] [address] Joya Zaragoza DDS [address] [place] [address] 08/08/2025 10:00 AM EST Clinical Support [address] [address] Charisse Crisostomo, LISA documented as of this [...] back location, unspecified back pain laterality Chronic thoracic back pain, unspecified back pain laterality Chronic pain syndrome documented in this encounter Additional Health Concerns Assessment Noted Time PHQ-9 Depression Total Score: 6 09/27/19 24 9:51 AM EDT documented as of this encounter Care Teams Sanitation Inspector Relationship Specialty Start Date End Date Name, MD Jayjay [address] [place] [address] PCP - General Family Medicine 07/26/15 documented as of this encounter
--- OUTSIDE RECORDS SUMMARY | 2025-05-07 19:17 | XMS_ITS | Encounter Summary ---
Author Organization [employer] Address 75 [facility] 7t [place] [address] Care Team Providers Care Certified Registered Locksmith Name Role Phone Name, Jayjay JUAREZ Primary Care Provider [phone] Reason for Visit * Reason Comments Med Refill Encounter Details Date Type Department Care Team ([facility] st Contact Info) Description 04/12/2024 Refill [facility] MEDICINE 230 [place], [place] [phone] Name, MD Jayjay 230 [place] [address] Chronic pain syndrome; Chronic back pain, unspecified back location, unspecified back pain laterality; Asthma, unspecified asthma severity, unspecified whether complicated, [...] Description 06/12/2025 11:00 AM EST Office Visit [address] [address] Name, MD Jayjay [address] [place] [address] 06/20/2025 10:00 AM EST Office Visit [facility] CH[facility] ADULT DENTAL [address] [place] [address] Joya Zaragoza DDS [address] [place] [address] 08/08/2025 10:00 AM EST Clinical Support [address] [address] Charisse Crisostomo, RN documented as of this encounter Goals Goal Patient Goal Type Associated Problems Recent Progress Patient-Stated? Author Blood Pressure < 140/90 Blood Pressure 140/80(2024 8:55 AM EDT) No Heriberto Arellano Hemoglobin A1c < 7 Result Component 6.7( 11:02 AM EDT) No Heriberto Arellano documented as of this encounter Visit Diagnoses Diagnosis Chronic pain syndrome Chronic back pain, unspecified back location, unspecified back pain laterality Asthma, unspecified asthma severity, unspecified whether complicated, unspecified whether persistent Chronic thoracic back pain, unspecified back pain laterality documented in this encounter Additional Health Concerns Assessment Noted Time PHQ-9 Depression Total Score: 6 09/27/19 24 9:51 AM EDT documented as of this encounter Care Teams Certified Registered Locksmith Relationship Specialty Start Date End Date Name, MD Jayjay [address] [place] [address] PCP - General Family Medicine 07/26/15 documented as of this encounter
--- OUTSIDE RECORDS SUMMARY | 2025-05-07 19:17 | XMS_ITS | Encounter Summary ---
Author Organization [employer] Address [address] [facility] [address] 7t [place] [address] Care Team Providers Care Chemical Instrumentation Officer Name Role Phone Name, Jayjay JUAREZ Primary Care Provider [phone] Reason for Visit * Reason Onset Date Comments Appointment Request 05/20/2023 Encounter Details Date Type Department Care Team ([facility] st Contact Info) Description 05/20/2023 Telephone [facility] MEDICINE 230 [place], [place] [phone] Name, MD Jayjay [address] [place] [address] Appointment Request Social History Tobacco Use Types Packs/Day Years [...] encounter Miscellaneous Notes * Telephone Encounter - Ronda Anaya - 05/20/2023 4:18 PM EST Tc from pt requesting f/u appt with PCP, pt is on a recall. documented in this encounter Plan of Treatment Upcoming Encounters Date Type Department Care Team (Late st Contact Info) Description 06/12/2025 11:00 AM EST Office Visit [facility] MEDICINE [address] [place] [address] Name, MD Jayjay [address] [place] [address] 06/20/2025 10:00 AM EST Office Visit [facility] CHC ADULT DENTAL [address] [place] [address] Joya Zaragoza DDS [address] [place] [address] 08/08/2025 10:00 AM EST Clinical Support [address] [address] Charisse Crisostomo, LISA documented as of this encounter Visit Diagnoses Not on filedocumented in this encounter Additional Health Concerns Assessment Noted Time PHQ-9 Depression Total Score: 13 10/06/ 023 10:12 AM EDT documented as of this encounter Care Teams Chemical Instrumentation Officer Relationship Specialty Start Date End Date Name, MD Jayjay [address] [place] [address] PCP - General Family Medicine 07/26/15 documented as of this encounter
--- OUTSIDE RECORDS SUMMARY | 2025-05-07 19:17 | XMS_ITS | Encounter Summary ---
Author Organization [employer] Address 75 [facility] 7t [place] [address] Care Team Providers Care Collection Systems Foreman Name Role Phone Name, Jayjay JUAREZ Primary Care Provider [phone] Reason for Visit * Reason Comments Med Refill Encounter Details Date Type Department Care Team ([facility] st Contact Info) Description 05/10/2023 Refill [facility] MEDICINE 230 [place], [place] [phone] [facility] 230 [place] [address] Chronic pain syndrome Social History Tobacco Use [...] Description 06/12/2025 11:00 AM EST Office Visit [facility] MEDICINE [address] [place] [address] Jayjay Freeman MD [address] [place] [address] 06/20/2025 10:00 AM EST Office Visit [facility]C ADULT DENTAL [address] [place] [address] Joya Zaragoza DDS [address] [place] [address] 08/08/2025 10:00 AM EST Clinical Support [address] [address] Charisse Crisostomo, RN documented as of this encounter Visit Diagnoses Diagnosis Chronic pain syndrome documented in this encounter Additional Health Concerns Assessment Noted Time PHQ-9 Depression Total Score: 13 023 10:12 AM EDT documented as of this encounter Care Teams Collection Systems Foreman Relationship Specialty Start Date End Date Jayjay Freeman MD [address] [place] [address] PCP - General Family Medicine 07/26/15 documented as of this encounter
--- OUTSIDE RECORDS SUMMARY | 2025-05-07 19:17 | XMS_ITS | Encounter Summary ---
Author Organization [employer] Address [address] [place] [address] 7 [place] [address] Care Team Providers Care Gasoline Tractor Operator Name Role Phone Name, Jayjay JUAREZ Primary Care Provider [phone] Reason for Visit * Reason Comments Med Refill Encounter Details Date Type Department Care Team (Late st Contact Info) Description 03/26/2023 Refill [facility] MEDICINE [address] [place] [phone] NameJayjay MD [address] [place] [address] Chronic pain syndrome; Chronic cough; Chronic back pain, unspecified back location, unspecified back pain laterality Social History Tobacco Use Types Packs/Day Years Used Date Smoking Tobacco: Never Smokeless Tobacco: Never Alcohol Use Standard Drinks/Week Comments Never 0 (1 standard drink = 0.6 oz pur e alcohol) Depression Answer Date Recorded Patient Health Questionnaire-9 Score 13 10/06/2022 Depression Answer Date Recorded Patient Health Questionnaire-2 [...] Description 06/12/2025 11:00 AM EST Office Visit [facility] MEDICINE [address] [place] [phone] NameJayjay MD 230 [place] [address] 06/20/2025 10:00 AM EST Office Visit [facility] CHC ADULT DENTAL [address] [place] [address] Joya Zaragoza DDS 230 [place] [address] 08/08/2025 10:00 AM EST Clinical Support [facility] MEDICINE 230 [place] [address] Charisse Crisostomo, LISA documented as of this encounter Visit Diagnoses Diagnosis Chronic pain syndrome Chronic cough Cough Chronic back pain, unspecified back location, unspecified back pain laterality documented in this encounter Additional Health Concerns Assessment Noted Time PHQ-9 Depression Total Score: 13 023 10:12 AM EDT documented as of this encounter Care Teams Gasoline Tractor Operator Relationship Specialty Start Date End Date Name, MD Jayjay [address] [place] [address] PCP - General Family Medicine 07/26/15 documented as of this encounter
--- OUTSIDE RECORDS SUMMARY | 2025-05-07 19:17 | XMS_ITS | Encounter Summary ---
Author Organization [employer] Address 75 [facility] 7t [place] [address] Care Team Providers Care Group Home Counselor Name Role Phone Name, Jayjay JUAREZ Primary Care Provider [phone] Reason for Visit * Reason Comments Med Refill Encounter Details Date Type Department Care Team ([facility] st Contact Info) Description 05/19/2023 Refill [facility] MEDICINE [address] [place], [place] [phone] [facility] 230 [place] [address] Chronic pain syndrome Social History Tobacco Use [...] Description 06/12/2025 11:00 AM EST Office Visit [facility] MEDICINE [address] [place] [address] Jayjay Freeman MD [address] [place] [address] 06/20/2025 10:00 AM EST Office Visit [facility] CHC ADULT DENTAL [address] [place] [address] Joya Zaragoza DDS [address] [place] [address] 08/08/2025 10:00 AM EST Clinical Support [address] [address] Charisse Crisostomo, RN documented as of this encounter Visit Diagnoses Diagnosis Chronic pain syndrome documented in this encounter Additional Health Concerns Assessment Noted Time PHQ-9 Depression Total Score: 13 023 10:12 AM EDT documented as of this encounter Care Teams Group Home Counselor Relationship Specialty Start Date End Date Jayjay Freeman MD [address] [place] [address] PCP - General Family Medicine 07/26/15 documented as of this encounter
--- OUTSIDE RECORDS SUMMARY | 2025-05-07 19:17 | XMS_ITS | Encounter Summary ---
Author Organization [employer] Address 75 [facility] 7 [place] [address] Care Team Providers Care Vp Transportation Name Role Phone Name, Jayjay JUAREZ Primary Care Provider [phone] Reason for Visit * Reason Onset Date Comments Med Refill 04/18/2024 Encounter Details Date Type Department Care Team (Late st Contact Info) Description 04/18/2024 Refill [facility] MEDICINE 230 [place], [place] [phone] Name, MD Jayjay 230 [place] [address] Chronic pain syndrome Social History Tobacco Use [...] Description 06/12/2025 11:00 AM EST Office Visit [address] [address] Name, MD Jayjay [address] [place] [address] 06/20/2025 10:00 AM EST Office Visit [facility] CHC ADULT DENTAL [address] [place] [address] Joya Zaragoza DDS [address] [place] [address] 08/08/2025 10:00 AM EST Clinical Support [address] [address] Charisse Crisostomo, RN documented as of this [...] documented as of this encounter Care Teams Vp Transportation Relationship Specialty Start Date End Date Name, MD Jayjay 230 [place] [address] PCP - General Family Medicine 07/26/15 documented as of this encounter
--- OUTSIDE RECORDS SUMMARY | 2025-05-07 19:17 | XMS_ITS | Encounter Summary ---
Author Organization [employer] Address 75 [facility] 7t [place] [address] Care Team Providers Care Financial Health Counselor Name Role Phone Name, Jayjay JUAREZ Primary Care Provider [phone] Reason for Visit * Reason Comments Med Refill Encounter Details Date Type Department Care Team ([facility] st Contact Info) Description 04/10/2024 Refill [facility] MEDICINE 230 [place], [place] [phone] Name, MD Jayjay 230 [place] [address] Chronic pain syndrome Social History Tobacco Use [...] 06/12/2025 11:00 AM EST Office Visit [address] [address] Name, MD Jayjay [address] [place] [address] 06/20/2025 10:00 AM EST Office Visit [facility] CHC ADULT DENTAL [address] [place] [address] Joya Zaragoza DDS [address] [place] [address] 08/08/2025 10:00 AM EST Clinical Support [address] [address] Charisse Crisostomo, RN documented as of this [...] documented as of this encounter Care Teams Financial Health Counselor Relationship Specialty Start Date End Date Name, MD Jayjay 230 [place] [address] PCP - General Family Medicine 07/26/15 documented as of this encounter
--- OUTSIDE RECORDS SUMMARY | 2025-05-07 19:17 | XMS_ITS | Encounter Summary ---
Author Organization [employer] Address 75 [facility] 7t [place] [address] Care Team Providers Care Cable Tool Driller Name Role Phone Name, Jayjay JUAREZ Primary Care Provider [phone] Reason for Visit * Reason Onset Date Comments Med Refill 07/07/2023 Encounter Details Date Type Department Care Team ([facility] st Contact Info) Description 07/07/2023 Telephone [facility] 230 [place], [place] [phone] Name, MD Jayjay 230 [place] [address] Med Refill Social History Tobacco Use Types [...] encounter Miscellaneous Notes * Telephone Encounter - Elsa Toscano RN - 07/09/2023 12:30 PM EST Percocet refill was sent to pharmacy 07/07/23 * Telephone Encounter - Ronda Anaya - 07/07/2023 11:41 AM EST TC from pharmacy requesting medication refill. Medications needing refill : oxyCODONE-acetaminophen (Percocet) 7.5-325 MG tablet Pharmacy also requested Naproxen 500 MG To be sent to: [facility] - [place], [place] - [address] [place] [address] documented in this encounter Plan of Treatment Upcoming Encounters Date Type Department Care Team (Late st Contact Info) Description 06/12/2025 11:00 AM EST Office Visit [facility] 230 [place] [address] Name, MD Jayjay 230 [place] [address] 06/20/2025 10:00 AM EST Office Visit [facility] CHC ADULT DENTAL [address] [place] [address] Joya Zaragoza DDS 230 [place] [address] 08/08/2025 10:00 AM EST Clinical Support [facility] 230 [place] [address] Charisse Crisostomo, LISA documented as of this [...] documented as of this encounter Care Teams Cable Tool Driller Relationship Specialty Start Date End Date Name, MD Jayjay 230 [place] [address] PCP - General Family Medicine 07/26/15 documented as of this encounter
--- OUTSIDE RECORDS SUMMARY | 2025-05-07 19:17 | XMS_ITS | Encounter Summary ---
Author Organization [employer] Address 75 [facility] 7t [place] [address] Care Team Providers Care Meat Curer Name Role Phone Name, Jayjay JUAREZ Primary Care Provider [phone] Reason for Visit * Reason Comments Med Refill Encounter Details Date Type Department Care Team ([facility] st Contact Info) Description 04/20/2024 Refill [facility] MEDICINE 230 [place], [place] [phone] Name, MD Jayjay 230 [place] [address] Chronic pain syndrome; Chronic back pain, unspecified [...] Description 06/12/2025 11:00 AM EST Office Visit [address] [address] Name, MD Jayjay [address] [place] [address] 06/20/2025 10:00 AM EST Office Visit [facility] CHC ADULT DENTAL [address] [place] [address] Joya Zaragoza DDS [address] [place] [address] 08/08/2025 10:00 AM EST Clinical Support [address] [address] Charisse Crisostomo, RN documented as of this [...] documented as of this encounter Care Teams Meat Curer Relationship Specialty Start Date End Date Name, MD Jayjay [address] [place] [address] PCP - General Family Medicine 07/26/15 documented as of this encounter
--- OUTSIDE RECORDS SUMMARY | 2025-05-07 19:17 | XMS_ITS | Encounter Summary ---
Author Organization [employer] Address 75 [facility] 7t [place] [address] Care Team Providers Care Transit Manager Name Role Phone Name, Jayjay JUAREZ Primary Care Provider [phone] Reason for Visit * Reason Comments Med Refill Encounter Details Date Type Department Care Team ([facility] st Contact Info) Description 04/11/2024 Refill [facility] MEDICINE 230 [place], [place] [phone] Name, MD Jayjay 230 [place] [address] Asthma, unspecified asthma severity, unspecified whether complicated, unspecified whether persistent; Chronic thoracic back pain, unspecified back pain laterality; Chronic back pain, unspecified back location, unspecified back pain laterality; Chronic pain syndrome Social History Tobacco Use [...] Description 06/12/2025 11:00 AM EST Office Visit [address] [address] Name, MD Jayjay [address] [place] [address] 06/20/2025 10:00 AM EST Office Visit [facility] CHC ADULT DENTAL [address] [place] [address] Joya Zaragoza DDS [address] [place] [address] 08/08/2025 10:00 AM EST Clinical Support [address] [address] Charisse Crisostomo, RN documented as of this encounter Goals Goal Patient Goal Type Associated Problems Recent Progress Patient-Stated? Author Blood Pressure < 140/90 Blood Pressure 140/80(2024 8:55 AM EDT) No Heriberto Arellano Hemoglobin A1c < 7 Result Component 6.7( 11:02 AM EDT) No Heriberto Arellano documented as of this encounter Visit Diagnoses Diagnosis Asthma, unspecified asthma severity, unspecified whether complicated, unspecified whether persistent Chronic thoracic back pain, unspecified back pain laterality Chronic back pain, unspecified back location, unspecified back pain laterality Chronic pain syndrome documented in this encounter Additional Health Concerns Assessment Noted Time PHQ-9 Depression Total Score: 6 09/27/19 24 9:51 AM EDT documented as of this encounter Care Teams Transit Manager Relationship Specialty Start Date End Date Name, MD Jayjay 230 [place] [address] PCP - General Family Medicine 07/26/15 documented as of this encounter
--- OUTSIDE RECORDS SUMMARY | 2025-05-07 19:17 | XMS_ITS | Encounter Summary ---
Author Organization [employer] Address 75 [facility] 7t [place] [address] Care Team Providers Care Hotel Security Officer Name Role Phone Name, Jayjay JUAREZ Primary Care Provider Reason for Visit * Reason Comments Med Refill Encounter Details Date Type Department Care Team ([facility] st Contact Info) Description 04/19/2024 Refill [facility] MEDICINE 230 [place], [place] [phone] Name, MD Jayjay 230 [place] [address] Chronic back pain, unspecified back location, unspecified [...] Description 06/12/2025 11:00 AM EST Office Visit [address] [address] Name, MD Jayjay [address] [place] [address] 06/20/2025 10:00 AM EST Office Visit [facility] CHC ADULT DENTAL [address] [place] [address] Joya Zaragoza DDS [address] [place] [address] 08/08/2025 10:00 AM EST Clinical Support [address] [address] Charisse Crisostomo, RN documented as of this [...] documented as of this encounter Care Teams Hotel Security Officer Relationship Specialty Start Date End Date Name, MD Jayjay [address] [place] [address] PCP - General Family Medicine 07/26/15 documented as of this encounter
--- OUTSIDE RECORDS SUMMARY | 2025-05-07 19:17 | XMS_ITS | Encounter Summary ---
Author Organization [employer] Address 75 [facility] 7 [place] [address] Care Team Providers Care Interlocker Name Role Phone Name, Jayjay JUAREZ Primary Care Provider [phone] Reason for Visit * Reason Onset Date Comments Med Refill 05/02/2024 Encounter Details Date Type Department Care Team (Late st Contact Info) Description 05/02/2024 Refill [facility] MEDICINE 230 [place], [place] [phone] Name, MD Jayjay 230 [place] [address] Chronic pain syndrome Social History Tobacco Use [...] Description 06/12/2025 11:00 AM EST Office Visit [address] [address] Name, MD Jayjay [address] [place] [address] 06/20/2025 10:00 AM EST Office Visit [facility] CHC ADULT DENTAL [address] [place] [address] Joya Zaragoza DDS [address] [place] [address] 08/08/2025 10:00 AM EST Clinical Support [address] [address] Charisse Crisostomo, RN documented as of this [...] documented as of this encounter Care Teams Interlocker Relationship Specialty Start Date End Date Name, MD Jayjay 230 [place] [address] PCP - General Family Medicine 07/26/15 documented as of this encounter
--- OUTSIDE RECORDS SUMMARY | 2025-05-07 19:17 | XMS_ITS | Encounter Summary ---
Author Organization [employer] Address 75 [facility] 7t [place] [address] Care Team Providers Care Channel Program Manager Name Role Phone Name, Jayjay JUAREZ Primary Care Provider [phone] Reason for Visit * Reason Comments Med Refill Encounter Details Date Type Department Care Team ([facility] st Contact Info) Description 05/08/2024 Refill [facility] MEDICINE 230 [place], [place] [phone] Name, MD Jayjay 230 [place] [address] Chronic pain syndrome Social History Tobacco Use [...] Description 06/12/2025 11:00 AM EST Office Visit [address] [address] Name, MD Jayjay [address] [place] [address] 06/20/2025 10:00 AM EST Office Visit [facility] CHC ADULT DENTAL [address] [place] [address] Joya Zaragoza DDS [address] [place] [address] 08/08/2025 10:00 AM EST Clinical Support [address] [address] Charisse Crisostomo, RN documented as of this [...] documented as of this encounter Care Teams Channel Program Manager Relationship Specialty Start Date End Date Name, MD Jayjay 230 [place] [address] PCP - General Family Medicine 07/26/15 documented as of this encounter
--- OUTSIDE RECORDS SUMMARY | 2025-05-07 19:17 | XMS_ITS | Encounter Summary ---
Author Organization [employer] Address 75 [facility] 7t [place] [address] Care Team Providers Care Chicken Sexer Name Role Phone Name, Jayjay JUAREZ Primary Care Provider [phone] Reason for Visit * Reason Comments Med Refill Encounter Details Date Type Department Care Team ([facility] st Contact Info) Description 04/26/2024 Refill [facility] MEDICINE 230 [place], [place] [phone] Name, MD Jayjay 230 [place] [address] Chronic pain syndrome; Chronic back pain, unspecified [...] Description 06/12/2025 11:00 AM EST Office Visit [address] [address] Name, MD Jayjay [address] [place] [address] 06/20/2025 10:00 AM EST Office Visit [facility] CHC ADULT DENTAL [address] [place] [address] Joya Zaragoza DDS [address] [place] [address] 08/08/2025 10:00 AM EST Clinical Support [address] [address] Charisse Crisostomo, RN documented as of this [...] documented as of this encounter Care Teams Chicken Sexer Relationship Specialty Start Date End Date Name, MD Jayjay [address] [place] [address] PCP - General Family Medicine 07/26/15 documented as of this encounter
--- OUTSIDE RECORDS SUMMARY | 2025-05-07 19:18 | XMS_ITS | Encounter Summary ---
Author Organization [employer] Address [address] [place] [address] 7 [place] [address] Care Team Providers Care Endoscopy Nurse Name Role Phone Name, Jayjay JUAREZ Primary Care Provider Reason for Visit * Reason Comments Med Refill Encounter Details Date Type Department Care Team (Late st Contact Info) Description 11/19/2022 Refill [facility] MEDICINE [address] [place] [address] [phone] Name, MD Jayjay [address] [place] [address] Chronic pain syndrome Social History Tobacco Use Types Packs/Day Years Used Date Smoking Tobacco: Never Smokeless Tobacco: Never Depression Answer Date Recorded Patient Health Questionnaire-9 [...] Description 06/12/2025 11:00 AM EST Office Visit [facility] MEDICINE [address] [place] [address] [phone] Jayjay Freeman MD [address] [place] [address] 06/20/2025 10:00 AM EST Office Visit [facility]C ADULT DENTAL [address] [place] [address] Joya Zaragoza DDS 230 [place] [address] 08/08/2025 10:00 AM EST Clinical Support [facility] MEDICINE 230 [place] [address] Charisse Crisostomo RN documented as of this encounter Visit Diagnoses Diagnosis Chronic pain syndrome documented in this encounter Additional Health Concerns Assessment Noted Time PHQ-9 Depression Total Score: 13 023 10:12 AM EDT documented as of this encounter Care Teams Endoscopy Nurse Relationship Specialty Start Date End Date Name, MD Jayjay 230 [place] [address] PCP - General Family Medicine 07/26/15 documented as of this encounter
--- OUTSIDE RECORDS SUMMARY | 2025-05-07 19:18 | XMS_ITS | Encounter Summary ---
Author Organization [employer] Address [address] [facility] [address] 7t [place] [address] Care Team Providers Care Sba Business Development Officer Name Role Phone Name, Jayjay JUAREZ Primary Care Provider [phone] Reason for Visit * Reason Comments Med Refill Encounter Details Date Type Department Care Team ([facility] st Contact Info) Description 08/09/2023 Refill [facility] MEDICINE 230 [place], [place] [phone] Name, MD Jayjay 230 [place] [address] Chronic thoracic back pain, unspecified back pain [...] Description 06/12/2025 11:00 AM EST Office Visit [facility] MEDICINE [address] [place] [address] Jayjay Freeman MD [address] [place] [address] 06/20/2025 10:00 AM EST Office Visit [facility] CHC ADULT DENTAL 505 [place] [address] Joya Zaragoza DDS [address] [place] [address] 08/08/2025 10:00 AM EST Clinical Support [address] [address] Charisse Crisostomo RN documented as of this encounter Goals Goal Patient Goal Type Associated Problems Recent Progress Patient-Stated? Author Blood Pressure < 140/90 Blood Pressure 140/80(2024 8:55 AM EDT) No Heriberto Arellano Hemoglobin A1c < 7 Result Component 6.7( 11:02 AM EDT) No Heriberto Arellano documented as of this encounter Visit Diagnoses Diagnosis Chronic thoracic back pain, unspecified back pain laterality documented in this encounter Additional Health Concerns Assessment Noted Time PHQ-9 Depression Total Score: 13 023 10:12 AM EDT documented as of this encounter Care Teams Sba Business Development Officer Relationship Specialty Start Date End Date Jayjay Freeman MD [address] [place] [address], [place] [address] PCP - General Family Medicine 07/26/15 documented as of this encounter
--- OUTSIDE RECORDS SUMMARY | 2025-05-07 19:18 | XMS_ITS | Encounter Summary ---
Author Organization [employer] Address [address] [facility] [address] 7t [place] [address] Care Team Providers Care Ditch Worker Name Role Phone Name, Jayjay JUAREZ Primary Care Provider [phone] Encounter Details Date Type Department Care Team (Latest Contact Info) Description 05/07/2025 Travel Social History Tobacco Use Types Packs/Day Years [...] Description 06/12/2025 11:00 AM EST Office Visit [address] [address] Name, MD Jayjay [address] [place] [address] 06/20/2025 10:00 AM EST Office Visit [facility] CHC ADULT DENTAL [address] [place] [address] Joya Zaragoza DDS [address] [place] [address] 08/08/2025 10:00 AM EST Clinical Support [address] [address] Charisse Crisostomo, LISA documented as of this [...] documented as of this encounter Care Teams Ditch Worker Relationship Specialty Start Date End Date Name, MD Jayjay 230 [place] [address] PCP - General Family Medicine 07/26/15 documented as of this encounter
--- OUTSIDE RECORDS SUMMARY | 2025-05-07 19:18 | XMS_ITS | Encounter Summary ---
Author Organization [employer] Address [address] [facility] [address] 7t [place] [address] Care Team Providers Care Insulation Mechanic Name Role Phone Name, Jayjay JUAREZ Primary Care Provider [phone] Reason for Visit * Reason Comments Med Refill Encounter Details Date Type Department Care Team ([facility] st Contact Info) Description 05/01/2025 Refill [facility] [address] [place] [address] Name, MD Jayjay 230 [place] [address] Type 2 diabetes mellitus with hyperglycemia, without long-term current use of insulin (HCC); Chronic pain syndrome Social History Tobacco Use [...] Description 06/12/2025 11:00 AM EST Office Visit [address] [address] Name, MD Jayjay [address] [place] [address] 06/20/2025 10:00 AM EST Office Visit [facility] CHC ADULT DENTAL 505 [place] [address] Joya Zaragoza DDS [address] [place] [address] 08/08/2025 10:00 AM EST Clinical Support [address] [address] Charisse Crisostomo, LISA documented as of this encounter Goals Goal Patient Goal Type Associated Problems Recent Progress Patient-Stated? Author Blood Pressure < 140/90 Blood Pressure 140/80(10/22/ 2025 8:55 AM EDT) No Heriberto Arellano Hemoglobin A1c < 7 Result Component 6.7( 11:02 AM EDT) No Heriberto Arellano documented as of this encounter Visit Diagnoses Diagnosis Type 2 diabetes mellitus with hyperglycemia, without long-term current use of insulin (HCC) Chronic pain syndrome documented in this encounter Additional Health Concerns Assessment Noted Time PHQ-9 Depression Total Score: 20 025 11:40 AM EDT documented as of this encounter Care Teams Insulation Mechanic Relationship Specialty Start Date End Date Name, MD Jayjay 230 [place] [address] PCP - General Family Medicine 07/26/15 documented as of this encounter
--- OUTSIDE RECORDS SUMMARY | 2025-05-07 19:18 | XMS_ITS | Encounter Summary ---
Author Organization [employer] Address 75 [facility] 7t [place] [address] Care Team Providers Care Primary Special Educator Name Role Phone Name, Jayjay JUAREZ Primary Care Provider [phone] Reason for Visit * Reason Comments Med Refill Encounter Details Date Type Department Care Team ([facility] st Contact Info) Description 04/05/2025 Refill [facility] MEDICINE 230 [place], [place] [phone] Name, MD Jayjay 230 [place] [address] Chronic pain syndrome; Type 2 diabetes mellitus with hyperglycemia, without long-term current use of insulin ([facility]) Social History Tobacco Use Types Packs/Day Years [...] Description 06/12/2025 11:00 AM EST Office Visit [address] [address] Name, MD Jayjay [address] [place] [address] 06/20/2025 10:00 AM EST Office Visit [facility] CHC ADULT DENTAL 505 [place] [address] Joya Zaragoza DDS [address] [place] [address] [phone] 08/08/2025 10:00 AM EST Clinical Support [address] [address] Charisse Crisostomo, RN documented as of this encounter Goals Goal Patient Goal Type Associated Problems Recent Progress Patient-Stated? Author Blood Pressure < 140/90 Blood Pressure 140/80(2024 8:55 AM EDT) No Heriberto Arellano Hemoglobin A1c < 7 Result Component 6.7( 11:02 AM EDT) No Heriberto Arellano documented as of this encounter Visit Diagnoses Diagnosis Chronic pain syndrome Type 2 diabetes mellitus with hyperglycemia, without long-term current use of insulin (HCC) documented in this encounter Additional Health Concerns Assessment Noted Time PHQ-9 Depression Total Score: 20 025 11:40 AM EDT documented as of this encounter Care Teams Primary Special Educator Relationship Specialty Start Date End Date Name, MD Jayjay 230 [place] [address] PCP - General Family Medicine 07/26/15 documented as of this encounter
--- OUTSIDE RECORDS SUMMARY | 2025-05-07 19:18 | XMS_ITS | Encounter Summary ---
Author Organization [employer] Address [address] [facility] [address] 7t [place] [address] Care Team Providers Care Supply Officer Name Role Phone Name, Jayjay JUAREZ Primary Care Provider [phone] Reason for Visit * Reason Comments Med Refill Encounter Details Date Type Department Care Team ([facility] st Contact Info) Description 11/03/2023 Refill [facility] MEDICINE 230 [place], [place] [phone] Name, MD Jayjay 230 [place] [address] Chronic thoracic back pain, unspecified back pain [...] Recorded Patient Health Questionnaire-2 Score 2 09/27/2023 Sex and Gender Information Value Date Recorded Sex Assigned at Male 05/11/2022 10:20 AM EDT Legal Sex Male 10:20 AM EDT Gender Identity Male 05/11/2022 10:20 AM EDT Sexual Orientation Straight 05/11/2022 10 :20 AM EDT documented as of this encounter Plan of Treatment Upcoming Encounters Date Type Department Care Team (Late st Contact Info) Description 06/12/2025 11:00 AM EST Office Visit [address] [address] Name, MD Jayjay [address] [place] [address] 06/20/2025 10:00 AM EST Office Visit [facility] CHC ADULT DENTAL [address] [place] [address] Joya Zaragoza DDS [address] [place] [address] 08/08/2025 10:00 AM EST Clinical Support [address] [address] Charisse Crisostomo, LISA documented as of this [...] documented as of this encounter Care Teams Supply Officer Relationship Specialty Start Date End Date Name, MD Jayjay 230 [place] [address] PCP - General Family Medicine 07/26/15 documented as of this encounter
--- OUTSIDE RECORDS SUMMARY | 2025-05-07 19:18 | XMS_ITS | Encounter Summary ---
Author Organization [employer] Address [address] [facility] [address] 7t [place] [address] Care Team Providers Care Lab Animal Technologist Name Role Phone Name, Jayjay JUAREZ Primary Care Provider Reason for Visit * Reason Comments Med Refill Encounter Details Date Type Department Care Team ([facility] st Contact Info) Description 09/22/2023 Refill [facility] MEDICINE 230 [place], [place] [phone] Name, MD Jayjay 230 [place] [address] Chronic pain syndrome Social History Tobacco Use [...] Description 06/12/2025 11:00 AM EST Office Visit [facility] MED[facility]INE [address] [place] [address] Jayjay Freeman MD [address] [place] [address] 06/20/2025 10:00 AM EST Office Visit [facility] CHC ADULT DENTAL [address] [place] [address] Joya Zaragoza DDS [address] [place] [address] 08/08/2025 10:00 AM EST Clinical Support [address] [address] Charisse Crisostomo, RN documented as of this [...] documented as of this encounter Care Teams Lab Animal Technologist Relationship Specialty Start Date End Date NameJayjay MD [address] [place] [address] PCP - General Family Medicine 07/26/15 documented as of this encounter
--- OUTSIDE RECORDS SUMMARY | 2025-05-07 19:18 | XMS_ITS | Encounter Summary ---
Author Organization [employer] Address [address] [address] 7t [place] [address] Care Team Providers Care Diagnostics Tech Name Role Phone Name, Jayjay JUAREZ Primary Care Provider [phone] Reason for Visit * Reason Comments Med Refill Encounter Details Date Type Department Care Team ([facility] st Contact Info) Description 06/15/2023 Refill [facility] MEDICINE 230 [place], [place] [phone] Name, MD Jayjay 230 [place] [address] Chronic pain syndrome Social History Tobacco Use [...] Description 06/12/2025 11:00 AM EST Office Visit [facility] MEDICINE [address] [place] [address] Jayjay Freeman MD [address] [place] [address] 06/20/2025 10:00 AM EST Office Visit [facility] CHC ADULT DENTAL [address] [place] [address] Joya Zaragoza DDS [address] [place] [address] 08/08/2025 10:00 AM EST Clinical Support [address] [address] Charisse Crisostomo, RN documented as of this [...] documented as of this encounter Care Teams Diagnostics Tech Relationship Specialty Start Date End Date NameJayjay MD [address] [place] [address] PCP - General Family Medicine 07/26/15 documented as of this encounter
--- OUTSIDE RECORDS SUMMARY | 2025-05-07 19:18 | XMS_ITS | Encounter Summary ---
Author Organization [employer] Address [address] [facility] 7t [place] [address] Care Team Providers Care Senior Audit Manager Name Role Phone Name, Jayjay JUAREZ Primary Care Provider [phone] Reason for Visit * Reason Onset Date Comments r/s appt 05/07/2025 Encounter Details Date Type Department Care Team ([facility] st Contact Info) Description 05/07/2025 Telephone [facility] MEDICINE 230 [place], [place] [phone] Name, MD Jayjay 230 [place] [address] r/s appt Social History Tobacco Use Types Packs/Day Years [...] encounter Miscellaneous Notes * Telephone Encounter - Charisse Crisostomo RN - 05/07/2025 9:42 AM EDT Return TC via P/I#[id number], pt in urgent care with his daughter and requested to reschedule his CIVIL LITIGATION ATTORNEY Renewal appointment today. Rescheduled for 05/09/25 @ 9am. * Telephone Encounter - Daniela Dowling - 05/07/2025 9:38 AM EDT Tc from pt calling to r/s appointment CIVIL LITIGATION ATTORNEY. Pt stated is on urgent care with his daughter. PCP DR. Freeman documented in this encounter Plan of Treatment Upcoming Encounters Date Type Department Care Team (Late st Contact Info) Description 06/12/2025 11:00 AM EST Office Visit [facility] MEDICINE [address] [place] [address] Name, MD Jayjay 230 [place] [address] 06/20/2025 10:00 AM EST Office Visit [facility] CHC ADULT DENTAL [address] [place] [address] Joya Zaragoza DDS 230 [place] [address] 08/08/2025 10:00 AM EST Clinical Support [facility] MEDICINE 230 [place] [address] Charisse Crisostomo, LISA documented as of this [...] documented as of this encounter Care Teams Senior Audit Manager Relationship Specialty Start Date End Date Name, MD Jayjay [address] [place] [address] PCP - General Family Medicine 07/26/15 documented as of this encounter
--- OUTSIDE RECORDS SUMMARY | 2025-05-07 19:18 | XMS_ITS | Encounter Summary ---
Author Organization [employer] Address [address] [facility] 7t [place] [address] Care Team Providers Care Coagulator Name Role Phone Name, Jayjay JUAREZ Primary Care Provider [phone] Reason for Visit * Reason Comments Med Refill Encounter Details Date Type Department Care Team ([facility] st Contact Info) Description 01/19/2024 Refill [facility] MEDICINE 230 [place], [place] [phone] Name, MD Jayjay 230 [place] [address] Chronic pain syndrome Social History Tobacco Use [...] Description 06/12/2025 11:00 AM EST Office Visit [address] [address] Name, MD Jayjay [address] [place] [address] 06/20/2025 10:00 AM EST Office Visit [facility] CHC ADULT DENTAL [address] [place] [address] Joya Zaragoza DDS [address] [place] [address] 08/08/2025 10:00 AM EST Clinical Support [address] [address] Charisse Crisostomo, LISA documented as of this encounter Goals Goal Patient Goal Type Associated Problems Recent Progress Patient-Stated? Author Blood Pressure < 140/90 Blood Pressure 140/80(2024 8:55 AM EDT) No Heriberto Arellano Hemoglobin A1c < 7 Result Component 6.7( 11:02 AM EDT) No Sampognaro, Heriberto documented as of this encounter Visit Diagnoses Diagnosis Chronic pain syndrome documented in this encounter Additional Health Concerns Assessment Noted Time PHQ-9 Depression Total Score: 6 09/27/19 24 9:51 AM EDT documented as of this encounter Care Teams Coagulator Relationship Specialty Start Date End Date Name, MD Jayjay 230 [place] [address] PCP - General Family Medicine 07/26/15 documented as of this encounter
--- OUTSIDE RECORDS SUMMARY | 2025-05-07 19:18 | XMS_ITS | Encounter Summary ---
Author Organization [employer] Address [address] [facility] [address] [address] 7t [place] [address] Care Team Providers Care Supervisor Building Maintenance Name Role Phone Name, Jayjay JUAREZ Primary Care Provider [phone] Reason for Visit * Reason Comments Med Refill Encounter Details Date Type Department Care Team ([facility] st Contact Info) Description 09/22/2023 Refill [facility] MEDICINE 230 [place], [place] [phone] Name, MD Jayjay 230 [place] [address] Chronic pain syndrome Social History Tobacco Use [...] Description 06/12/2025 11:00 AM EST Office Visit [facility] MEDICINE [address] [place] [address] Jayjay Freeman MD [address] [place] [address] 06/20/2025 10:00 AM EST Office Visit [facility] CHC ADULT DENTAL [address] [place] [address] Joya Zaragoza DDS [address] [place] [address] 08/08/2025 10:00 AM EST Clinical Support [address] [address] Charisse Crisostomo, RN documented as of this [...] documented as of this encounter Care Teams Supervisor Building Maintenance Relationship Specialty Start Date End Date NameJayjay MD [address] [place] [address] PCP - General Family Medicine 07/26/15 documented as of this encounter
--- OUTSIDE RECORDS SUMMARY | 2025-05-07 19:18 | XMS_ITS | Encounter Summary ---
Author Organization [employer] Address [address] [place] [address] 7 [place] [address] Care Team Providers Care Chair Finisher Name Role Phone Name, Jayjay JUAREZ Primary Care Provider [phone] Reason for Visit * Reason Comments Med Refill Encounter Details Date Type Department Care Team (Late st Contact Info) Description 08/11/2022 Refill [facility] MEDICINE [address] [place] [address] [phone] Name, MD Jayjay [address] [place] [address] Chronic pain syndrome Social History Tobacco Use Types Packs/Day Years Used Date Smoking Tobacco: Never Smokeless Tobacco: Never Sex and Gender Information Value Date Recorded Sex Assigned at Male 05/11/2022 10:20 AM EDT Legal Sex Male 10:20 AM EDT Gender Identity Male 05/11/2022 10:20 AM EDT Sexual Orientation Straight 05/11/2022 10 :20 AM EDT COVID-19 Exposure Response Date Recorded In the last 10 days, have yo u been in contact with someone who was confirmed or suspected to have Coronavirus/COVID-19? No / Unsure 08/13/2022 9:41 AM EST documented as of this encounter Plan of Treatment Upcoming Encounters Date Type Department Care Team (Late st Contact Info) Description 06/12/2025 11:00 AM EST Office Visit [facility] MEDICINE [address] [place] [address] [phone] NameJayjay MD [address] [place] [address] [phone] 06/20/2025 10:00 AM EST Office Visit [facility] CHC ADULT DENTAL [address] [place] [address] Joya Zaragoza DDS 230 [place] [address] 08/08/2025 10:00 AM EST Clinical Support [facility] MEDICINE 230 [place] [address] Charisse Crisostomo, LISA documented as of this encounter Visit Diagnoses Diagnosis Chronic pain syndrome documented in this encounter Care Teams Chair Finisher Relationship Specialty Start Date End Date Name, MD Jayjay 230 [place] [address] PCP - General Family Medicine 07/26/15 documented as of this encounter
--- OUTSIDE RECORDS SUMMARY | 2025-05-07 19:18 | XMS_ITS | Encounter Summary ---
Author Organization [employer] Address [address] [facility] [address] 7t [place] [address] Care Team Providers Care Supervisor Wall Mirror Department Name Role Phone Name, Jayjay JUAREZ Primary Care Provider [phone] Reason for Visit * Reason Onset Date Comments Med Refill 11/10/2022 Pt walk in reque sting refill for oxyCODONE-acetaminophen (Percocet) 7.5-325 MG tablet. Encounter Details Date Type Department Care Team (Late st Contact Info) Description 11/10/2022 Refill [facility] CHC MED & PEDS [address] [place], [place] [phone] Name, MD Jayjay 230 [place], [place] [phone] Chronic pain syndrome Social History Tobacco Use [...] suspected to have Coronavirus/COVID-19? No / Unsure 10/19/2022 9:39 AM EDT documented as of this encounter Miscellaneous Notes * Telephone Encounter - Charisse Crisostomo RN - 11/10/2022 1:41 PM EDT Percocet refill too early, not due until 11/18/22. Will send to PCP on 11/16/22. documented in this encounter Plan of Treatment Upcoming Encounters Date Type Department Care Team (Late st Contact Info) Description 06/12/2025 11:00 AM EST Office Visit [address] [address] NameJayjay MD [address] [place] [address] 06/20/2025 10:00 AM EST Office Visit [facility] ADULT DENTAL [address] [place] [address] Joya Zaragoza DDS [address] [place] [address] 08/08/2025 10:00 AM EST Clinical Support [address] [address] Charisse Crisostomo, LISA documented as of this encounter Visit Diagnoses Diagnosis Chronic pain syndrome documented in this encounter Additional Health Concerns Assessment Noted Time PHQ-9 Depression Total Score: 13 10/06/ 023 10:12 AM EDT documented as of this encounter Care Teams Supervisor Wall Mirror Department Relationship Specialty Start Date End Date Jayjay Freeman MD [address] [place] [address] PCP - General Family Medicine 07/26/15 documented as of this encounter
--- OUTSIDE RECORDS SUMMARY | 2025-05-07 19:18 | XMS_ITS | Encounter Summary ---
Author Organization [employer] Address [address] [facility] 7t [place] [address] Care Team Providers Care Medicine Aide Name Role Phone Name, Jayjay JUAREZ Primary Care Provider [phone] Reason for Visit * Reason Comments Med Refill Encounter Details Date Type Department Care Team ([facility] st Contact Info) Description 01/26/2024 Refill [facility] MEDICINE 230 [place], [place] [phone] Name, MD Jayjay 230 [place] [address] Chronic thoracic back pain, unspecified back pain laterality; Asthma, unspecified asthma [...] 06/12/2025 11:00 AM EST Office Visit [facility] MEDICINE [address] [place] [address] Name, MD Jayjay [address] [place] [address] 06/20/2025 10:00 AM EST Office Visit [facility] CHC ADULT DENTAL [address] [place] [address] Joya Zaragoza DDS [address] [place] [address] 08/08/2025 10:00 AM EST Clinical Support [address] [address] Charisse Crisostomo, RN documented as of this encounter Goals Goal Patient Goal Type Associated Problems Recent Progress Patient-Stated? Author Blood Pressure < 140/90 Blood Pressure 140/80(2024 8:55 AM EDT) No Heriberto Arellano Hemoglobin A1c < 7 Result Component 6.7(07/03/202 5 11:02 AM EDT) No Heriberto Arellano documented as of this encounter Visit Diagnoses Diagnosis Chronic thoracic back pain, unspecified back pain laterality Asthma, unspecified asthma severity, unspecified whether complicated, unspecified whether persistent documented in this encounter Additional Health Concerns Assessment Noted Time PHQ-9 Depression Total Score: 6 09/27/19 24 9:51 AM EDT documented as of this encounter Care Teams Medicine Aide Relationship Specialty Start Date End Date Name, MD Jayjay 230 [place] [address] PCP - General Family Medicine 07/26/15 documented as of this encounter
--- OUTSIDE RECORDS SUMMARY | 2025-05-07 19:18 | XMS_ITS | Encounter Summary ---
Author Organization [employer] Address [address] [place] [address] 7 [place] [address] Care Team Providers Care Furniture Sales Associate Name Role Phone Name, Jayjay JUAREZ Primary Care Provider [phone] Reason for Visit * Reason Comments Med Refill Encounter Details Date Type Department Care Team ([facility] st Contact Info) Description 01/06/2024 Refill [facility] MEDICINE 230 [place], [place] [phone] Mara Pimentel MD 230 [place] [address] Chronic thoracic back pain, unspecified back pain [...] Description 06/12/2025 11:00 AM EST Office Visit [facility] MEDICINE [address] [place] [address] Name, MD Jayjay [address] [place] [address] 06/20/2025 10:00 AM EST Office Visit [facility] CHC ADULT DENTAL [address] [place] [address] Joya Zaragoza DDS [address] [place] [address] 08/08/2025 10:00 AM EST Clinical Support [address] [address] Charisse Crisostomo, RN documented as of this encounter Goals Goal Patient Goal Type Associated Problems Recent Progress Patient-Stated? Author Blood Pressure < 140/90 Blood Pressure 140/80(2024 8:55 AM EDT) No Heriberto Arellano Hemoglobin A1c < 7 Result Component 6.7( 11:02 AM EDT) Heriberto Barnard documented as of this encounter Visit Diagnoses Diagnosis Chronic thoracic back pain, unspecified back pain laterality documented in this encounter Additional Health Concerns Assessment Noted Time PHQ-9 Depression Total Score: 6 09/27/19 24 9:51 AM EDT documented as of this encounter Care Teams Furniture Sales Associate Relationship Specialty Start Date End Date Name, MD Jayjay 230 [place] [address] PCP - General Family Medicine 07/26/15 documented as of this encounter
--- OUTSIDE RECORDS SUMMARY | 2025-05-07 19:18 | XMS_ITS | Encounter Summary ---
Author Organization [employer] Address 75 [facility] 7t [place] [address] Care Team Providers Care Manager Financial Name Role Phone Name, Jayjay JUAREZ Primary Care Provider [phone] Reason for Visit * Reason Comments Med Refill Encounter Details Date Type Department Care Team ([facility] st Contact Info) Description 01/20/2024 Refill [facility] MEDICINE 230 [place], [place] [phone] Name, MD Jayjay 230 [place] [address] Chronic thoracic back pain, unspecified back pain [...] Description 06/12/2025 11:00 AM EST Office Visit [facility] MEDICINE [address] [place] [address] Name, MD Jayjay [address] [place] [address] 06/20/2025 10:00 AM EST Office Visit [facility] CHC ADULT DENTAL [address] [place] [address] Joya Zaragoza DDS [address] [place] [address] 08/08/2025 10:00 AM EST Clinical Support [address] [address] Charisse Crisostomo, RN documented as of this [...] documented as of this encounter Care Teams Manager Financial Relationship Specialty Start Date End Date Name, MD Jayjay 230 [place] [address] PCP - General Family Medicine 07/26/15 documented as of this encounter
--- OUTSIDE RECORDS SUMMARY | 2025-05-07 19:18 | XMS_ITS | Encounter Summary ---
Author Organization [employer] Address [address] [facility] [address] 7t [place] [address] Care Team Providers Care Meat Scrubber Name Role Phone Name, Jayjay JUAREZ Primary Care Provider Reason for Visit * Reason Comments Med Refill Encounter Details Date Type Department Care Team ([facility] st Contact Info) Description 11/04/2023 Refill [facility] MEDICINE 230 [place], [place] [phone] Name, MD Jayjay 230 [place] [address] Chronic thoracic back pain, unspecified back pain [...] 06/12/2025 11:00 AM EST Office Visit [address] [address] Name, MD Jayjay [address] [place] [address] 06/20/2025 10:00 AM EST Office Visit [facility] CHC ADULT DENTAL [address] [place] [address] Joya Zaragoza DDS [address] [place] [address] 08/08/2025 10:00 AM EST Clinical Support [address] [address] Charisse Crisostomo, LISA documented as of this [...] as of this encounter Care Teams Meat Scrubber Relationship Specialty Start Date End Date Name, MD Jayjay 230 [place] [address] PCP - General Family Medicine 07/26/15 documented as of this encounter
--- OUTSIDE RECORDS SUMMARY | 2025-05-07 19:18 | XMS_ITS | Encounter Summary ---
Author Organization [employer] Address 75 [facility] 7t [place] [address] Care Team Providers Care Oracle Distribution Consultant Name Role Phone Name, Jayjay JUAREZ Primary Care Provider [phone] Reason for Visit * Reason Onset Date Comments Med Refill 09/13/2023 Encounter Details Date Type Department Care Team (Late st Contact Info) Description 09/13/2023 Refill [facility] MEDICINE 230 [place], [place] [phone] Name, MD Jayjay 230 [place] [address] Chronic pain syndrome Social History Tobacco Use [...] Description 06/12/2025 11:00 AM EST Office Visit [facility] MEDICINE [address] [place] [address] Jayjay Freeman MD [address] [place] [address] 06/20/2025 10:00 AM EST Office Visit [facility] CHC ADULT DENTAL [address] [place] [address] Joya Zaragoza DDS [address] [place] [address] 08/08/2025 10:00 AM EST Clinical Support [address] [address] Charisse Crisostomo RN documented as of this [...] documented as of this encounter Care Teams [employer] Distribution Consultant Relationship Specialty Start Date End Date NameJayjay MD [address] [place] [address] PCP - General Family Medicine 07/26/15 documented as of this encounter
--- OUTSIDE RECORDS SUMMARY | 2025-05-07 19:18 | XMS_ITS | Encounter Summary ---
Author Organization [employer] Address [address] [place] [address] 7 [place] [address] Care Team Providers Care Scuba Diving Instructor Name Role Phone Name, Jayjay JUAREZ Primary Care Provider [phone] Reason for Visit * Reason Comments Med Refill Encounter Details Date Type Department Care Team ([facility] st Contact Info) Description 12/31/2023 Refill [facility] MEDICINE 230 [place], [place] [phone] Mara Pimentel MD 230 [place] [address] Chronic thoracic back pain, unspecified back pain [...] your housing situation today? I have jane sing 05/03/[address] you li [...] 06/12/2025 11:00 AM EST Office Visit [address] [address] Name, MD Jayjay [address] [place] [address] 06/20/2025 10:00 AM EST Office Visit [facility] CHC ADULT DENTAL [address] [place] [address] Joya Zaragoza DDS [address] [place] [address] 08/08/2025 10:00 AM EST Clinical Support [address] [address] Charisse Crisostomo, LISA documented as of this [...] documented as of this encounter Care Teams Scuba Diving Instructor Relationship Specialty Start Date End Date Name, MD Jayjay 230 [place] [address] PCP - General Family Medicine 07/26/15 documented as of this encounter
--- OUTSIDE RECORDS SUMMARY | 2025-05-07 19:18 | XMS_ITS | Encounter Summary ---
Author Organization [employer] Address 75 [facility] 7t [place] [address] Care Team Providers Care Qualitative Researcher Name Role Phone Name, Jayjay JUAREZ Primary Care Provider [phone] Reason for Visit * Reason Comments Med Refill Encounter Details Date Type Department Care Team ([facility] st Contact Info) Description 08/02/2023 Refill [facility] [address] [place], [place] [phone] Kerry Milner FNP 230 [place] [address] Chronic pain syndrome Social History Tobacco Use [...] Description 06/12/2025 11:00 AM EST Office Visit [facility] [address] [place] [address] Jayjay [place] MD [address] [place] [address] 06/20/2025 10:00 AM EST Office Visit [facility] ADULT D[facility]AL [address] [place] [address] Joya Zaragoza DDS [address] [place] [address] 08/08/2025 10:00 AM EST Clinical Support [address] [address] Charisse Crisostomo, RN documented as of this [...] documented as of this encounter Care Teams Qualitative Researcher Relationship Specialty Start Date End Date NameJayjay MD [address] [place] [address] PCP - General Family Medicine 07/26/15 documented as of this encounter
--- OUTSIDE RECORDS SUMMARY | 2025-05-07 19:18 | XMS_ITS | Encounter Summary ---
Author Organization [employer] Address [address] [place] [address] 7 [place] [address] Care Team Providers Care Extrusion Die Repair Manager Name Role Phone Name, Jayjay JUAREZ Primary Care Provider [phone] Reason for Visit * Reason Comments Med Refill Encounter Details Date Type Department Care Team (Late st Contact Info) Description 11/24/[address] [facility] [address] [place] [address] [phone] Name, MD Jayjay [address] [place] [address] Chronic pain syndrome Social History Tobacco Use [...] 06/12/2025 11:00 AM EST Office Visit [facility] [address] [place] [address] [phone] NameJayjay MD [address] [place] [address] 06/20/2025 10:00 AM EST Office Visit [facility] [address] [place] [address] Joya Zaragoza DDS 230 [place] [address] 08/08/2025 10:00 AM EST Clinical Support [facility] 230 [place] [address] Charisse Crisostomo RN documented as of this encounter Visit Diagnoses Diagnosis Chronic pain syndrome documented in this encounter Additional Health Concerns Assessment Noted Time PHQ-9 Depression Total Score: 13 023 10:12 AM EDT documented as of this encounter Care Teams Extrusion Die Repair Manager Relationship Specialty Start Date End Date Name, MD Jayjay 230 [place] [address] PCP - General Family Medicine 07/26/15 documented as of this encounter
--- OUTSIDE RECORDS SUMMARY | 2025-05-07 19:18 | XMS_ITS | Encounter Summary ---
Author Organization [employer] Address 75 [facility] 7t [place] [address] Care Team Providers Care Php Magento Developer Name Role Phone Name, Jayjay JUAREZ Primary Care Provider [phone] Reason for Visit * Reason Onset Date Comments Med Refill 08/03/2023 Encounter Details Date Type Department Care Team ([facility] st Contact Info) Description 08/03/2023 Telephone [facility] MEDICINE 230 [place], [place] [phone] Name, MD Jayjay 230 [place] [address] Med Refill Social History Tobacco Use Types [...] encounter Miscellaneous Notes * Telephone Encounter - Marcio Musa - 08/03/2023 3:12 PM EST Tc from the [facility] calling inform PCP the medication dulaglutide (Trulicity) 4.5 MG/0.5ML solution pen-injector is currently out of stock and is requesting a alternative medication documented in this encounter Plan of Treatment Upcoming Encounters Date Type Department Care Team (Late st Contact Info) Description 06/12/2025 11:00 AM EST Office Visit [facility] MEDICINE [address] [place] [address] Name, MD Jayjay [address] [place] [address] 06/20/2025 10:00 AM EST Office Visit [facility] CHC ADULT DENTAL [address] [place] [address] Joya Zaragoza DDS [address] [place] [address] 08/08/2025 10:00 AM EST Clinical Support [address] [address] Charisse Crisostomo, RN documented as of this encounter Goals Goal Patient Goal Type Associated Problems Recent Progress Patient-Stated? Author Blood Pressure < 140/90 Blood Pressure 140/80(2024 8:55 AM EDT) No Sampognaro, Heriberto Hemoglobin A1c < 7 Result Component 6.7( 5 11:02 AM EDT) No Heriberto Arellano documented as of this encounter Visit Diagnoses Not on filedocumented in this encounter Additional Health Concerns Assessment Noted Time PHQ-9 Depression Total Score: 13 10/06/ 023 10:12 AM EDT documented as of this encounter Care Teams Php Magento Developer Relationship Specialty Start Date End Date Name, MD Jayjay 230 [place] [address] PCP - General Family Medicine 07/26/15 documented as of this encounter
--- OUTSIDE RECORDS SUMMARY | 2025-05-07 19:18 | XMS_ITS | Encounter Summary ---
Author Organization [employer] Address [address] [place] [address] 7 [place] [address] Care Team Providers Care Fish Farm Laborer Name Role Phone Name, Jayjay JUAREZ Primary Care Provider [phone] Reason for Visit * Reason Comments Med Refill Encounter Details Date Type Department Care Team (Late st Contact Info) Description 12/07/2022 Refill [facility] MED[facility]INE [address] [place] [address] [phone] Name, MD Jayjay [address] [place] [address] Chronic pain syndrome Social History Tobacco Use [...] 11:00 AM EST Office Visit [facility] MED[facility]INE [address] [place] [address] [phone] NameJayjay MD [address] [place] [address] 06/20/2025 10:00 AM EST Office Visit [facility] [address] [place] [address] Joya Zaragoza DDS 230 [place] [address] 08/08/2025 10:00 AM EST Clinical Support [facility] 230 [place] [address] Charisse Crisostomo RN documented as of this encounter Visit Diagnoses Diagnosis Chronic pain syndrome documented in this encounter Additional Health Concerns Assessment Noted Time PHQ-9 Depression Total Score: 13 023 10:12 AM EDT documented as of this encounter Care Teams Fish Farm Laborer Relationship Specialty Start Date End Date Name, MD Jayjay 230 [place] [address] PCP - General Family Medicine 07/26/15 documented as of this encounter
--- OUTSIDE RECORDS SUMMARY | 2025-05-07 19:18 | XMS_ITS | Encounter Summary ---
Author Organization [employer] Address 75 [facility] 7t [place] [address] Care Team Providers Care Helper Maintenance Cleaning Name Role Phone Name, Jayjay JUAREZ Primary Care Provider [phone] Reason for Visit * Reason Comments Med Refill Encounter Details Date Type Department Care Team ([facility] st Contact Info) Description 01/26/2024 Refill [facility] 230 [place], [place] [phone] Name, MD Jayjay 230 [place] [address] Asthma, unspecified asthma severity, unspecified whether complicated, [...] the past 12 months, has t he [employer], gas, oil or water company threatened to [...] Description 06/12/2025 11:00 AM EST Office Visit [facility] [address] [place] [address] Name, MD Jayjay [address] [place] [address] 06/20/2025 10:00 AM EST Office Visit [facility] CHC ADULT DENTAL [address] [place] [address] Joya Zaragoza DDS [address] [place] [address] 08/08/2025 10:00 AM EST Clinical Support [address] [address] Charisse Crisostomo, LISA documented as of this [...] documented as of this encounter Care Teams Helper Maintenance Cleaning Relationship Specialty Start Date End Date Name, MD Jayjay 230 [place] [address] PCP - General Family Medicine 07/26/15 documented as of this encounter
--- OUTSIDE RECORDS SUMMARY | 2025-05-07 19:18 | XMS_ITS | Encounter Summary ---
Author Organization [employer] Address [address] [place] [address] 7 [place] [address] Care Team Providers Care Senior Telecommunications Technician Name Role Phone Name, Jayjay JUAREZ Primary Care Provider [phone] Encounter Details Date Type Department Care Team (Latest Contact Info) Description 01/06/2022 Abstract [facility] CONVERSIONS Dental, Provider, DDS Social History Tobacco Use Types Packs/Day Years Used Date Smoking Tobacco: Never Assessed Sex and Gender Information Value Date Recorded Sex Assigned at Male 05/11/2022 10:20 AM EDT Legal Sex Male 10:20 AM EDT Gender Identity Male 05/11/2022 10:20 AM EDT Sexual Orientation Straight 05/11/2022 10 :20 AM EDT documented as of this encounter Plan of Treatment Upcoming Encounters Date Type Department Care Team ( st Contact Info) Description 06/12/2025 11:00 AM EST Office Visit [address] [address] Name, MD Jayjay [address] [place] [address] 06/20/2025 10:00 AM EST Office Visit [facility] CHC ADULT DENTAL [address] [place] [address] Joya Zaragoza DDS [address] [place] [address] 08/08/2025 10:00 AM EST Clinical Support [address] [address] Charisse Crisostomo, RN documented as of this encounter Visit Diagnoses Not on filedocumented in this encounter Care Teams Senior Telecommunications Technician Relationship Specialty Start Date End Date Name, MD Jayjay 230 [place] [address] PCP - General Family Medicine 07/26/15 documented as of this encounter
--- OUTSIDE RECORDS SUMMARY | 2025-05-07 19:18 | XMS_ITS | Encounter Summary ---
Author Organization [employer] Address 75 [facility] 7t [place] [address] Care Team Providers Care Service Planner Name Role Phone Name, Jayjay JUAREZ Primary Care Provider [phone] Reason for Visit * Reason Comments Med Refill Encounter Details Date Type Department Care Team ([facility] st Contact Info) Description 2025 Refill [facility] MEDICINE 230 [place], [place] [phone] Name, MD Jayjay 230 [place] [address] Chronic pain syndrome; Type 2 diabetes mellitus with hyperglycemia, without long-term current use of insulin ([facility]) Social History Tobacco Use Types Packs/Day Years [...] Description 06/12/2025 11:00 AM EST Office Visit [address] [address] Name, MD Jayjay [address] [place] [address] 06/20/2025 10:00 AM EST Office Visit [facility] CHC ADULT DENTAL 505 [place] [address] Joya Zaragoza DDS [address] [place] [address] [phone] 08/08/2025 10:00 AM EST Clinical Support [address] [address] Charisse Crisostomo, RN documented as of this [...] documented as of this encounter Care Teams Service Planner Relationship Specialty Start Date End Date Name, MD Jayjay 230 [place] [address] PCP - General Family Medicine 07/26/15 documented as of this encounter
--- OUTSIDE RECORDS SUMMARY | 2025-05-07 19:18 | XMS_ITS | Encounter Summary ---
Author Organization [employer] Address 75 [facility] 7 [place] [address] Care Team Providers Care Sporting Goods Sales Associate Name Role Phone Name, Jayjay JUAREZ Primary Care Provider [phone] Reason for Visit * Reason Onset Date Comments Med Refill 02/08/2025 Encounter Details Date Type Department Care Team ([facility] st Contact Info) Description 02/08/2025 Telephone [facility] MEDICINE 230 [place], [place] [phone] Name, MD Jayjay 230 [place] [address] Med Refill Social History Tobacco Use Types [...] the past 12 months, has t he [employer], gas, oil or water company threatened to [...] Telephone Encounter - Rita Holly LPN - 02/08/2025 10:21 AM EDT Medications are to soon for refill. DIESEL LOCOMOTIVE CRANE OPERATOR checked on 02/08/25 Lyrica was sold on 02/02/25 #84 (28 day supply). * Telephone Encounter - Colten Horowitz - 02/08/2025 10:15 AM EDT TC from pt requesting medication refill. Medications needing refill: methocarbamol (Robaxin) 500 MG tablet naproxen (Naprosyn) 500 MG tablet pregabalin (Lyrica) 150 MG capsule [facility]: [email or web address] [place], [place] - [address] [place] [address] documented in this encounter Plan of Treatment Upcoming Encounters Date Type Department Care Team (Late st Contact Info) Description 06/12/2025 11:00 AM EST Office Visit [facility] [place] [address] Name, MD Jayjay [facility] [place], [place] 06/20/2025 10:00 AM EST Office Visit [facility] ADULT DENTAL [address] [place] [address] Joya Zaragoza DDS 230 [place], [place] 08/08/2025 10:00 AM EST Clinical Support [facility] Raman [place], [place] [phone] Charisse Crisostomo, RN documented as of this [...] documented as of this encounter Care Teams Sporting Goods Sales Associate Relationship Specialty Start Date End Date Name, MD Jayjay [facility] [place] [address] PCP - General Family Medicine 07/26/15 documented as of this encounter
--- OUTSIDE RECORDS SUMMARY | 2025-05-07 19:18 | XMS_ITS | Encounter Summary ---
Author Organization [employer] Address 75 [facility] 7t [place] [address] Care Team Providers Care Chief Security And Safety Officer Name Role Phone Name, Jayjay JUAREZ Primary Care Provider [phone] Reason for Visit * Reason Comments Med Refill Encounter Details Date Type Department Care Team ([facility] st Contact Info) Description 09/03/2023 Refill [facility] 230 [place], [place] [phone] Kerry Milner FNP 230 [place] [address] Chronic pain syndrome Social History Tobacco Use [...] 11:00 AM EST Office Visit [facility] [address] [place] [address] Jayjay [place] MD [address] [place] [address] 06/20/2025 10:00 AM EST Office Visit [facility] ADULT DENTAL [address] [place] [address] Joya Zaragoza DDS [address] [place] [address] 08/08/2025 10:00 AM EST Clinical Support [address] [address] Charisse Crisostomo, RN documented as of this [...] documented as of this encounter Care Teams Chief Security And Safety Officer Relationship Specialty Start Date End Date NameJayjay MD [address] [place] [address] PCP - General Family Medicine 07/26/15 documented as of this encounter
--- OUTSIDE RECORDS SUMMARY | 2025-05-07 19:18 | XMS_ITS | Encounter Summary ---
Author Organization [email or web address] Address 75 [facility] 7t [place] [address] Care Team Providers Care Fiber Glass Worker Name Role Phone Name, Jayjay JUAREZ Primary Care Provider [phone] Reason for Visit * Reason Comments Med Refill Encounter Details Date Type Department Care Team ([facility] st Contact Info) Description 09/06/2023 Refill [facility] MEDICINE 230 [place], [place] [phone] Kerry Milner FNP 230 [place] [address] Chronic pain syndrome Social History Tobacco Use [...] Description 06/12/2025 11:00 AM EST Office Visit [facility] MEDICINE [address] [place] [address] Jayjay [place] MD [address] [place] [address] 06/20/2025 10:00 AM EST Office Visit [facility] CHC ADULT DENTAL [address] [place] [address] Joya Zaragoza DDS [address] [place] [address] 08/08/2025 10:00 AM EST Clinical Support [address] [address] Charisse Crisostomo, RN documented as of this [...] documented as of this encounter Care Teams Fiber Glass Worker Relationship Specialty Start Date End Date NameJayjay MD [address] [place] [address] PCP - General Family Medicine 07/26/15 documented as of this encounter
--- OUTSIDE RECORDS SUMMARY | 2025-05-07 19:18 | XMS_ITS | Encounter Summary ---
Author Organization [employer] Address [address] [facility] [address] 7t [place] [address] Care Team Providers Care Finish Saw Operator Name Role Phone Name, Jayjay JUAREZ Primary Care Provider [phone] Reason for Visit * Reason Comments Med Refill Encounter Details Date Type Department Care Team ([facility] st Contact Info) Description 06/30/2023 Refill [facility] MEDICINE 230 [place], [place] [phone] Name, MD Jayjay 230 [place] [address] Chronic pain syndrome Social History Tobacco Use [...] Office Visit [facility] MEDICINE [address] [place] [address] Jayjay [place] MD [address] [place] [address] 06/20/2025 10:00 AM EST Office Visit [facility] ADULT DENTAL [address] [place] [address] Joya Zaragoza DDS [address] [place] [address] 08/08/2025 10:00 AM EST Clinical Support [address] [address] Charisse Crisostomo, RN documented as of this [...] documented as of this encounter Care Teams Finish Saw Operator Relationship Specialty Start Date End Date NameJayjay MD [address] [place] [address] PCP - General Family Medicine 07/26/15 documented as of this encounter
--- OUTSIDE RECORDS SUMMARY | 2025-05-07 19:18 | XMS_ITS | Encounter Summary ---
Author Organization [employer] Address 75 [facility] 7t [place] [address] Care Team Providers Care Glue Cook Name Role Phone Name, Jayjay JUAREZ Primary Care Provider [phone] Reason for Visit * Reason Comments Med Refill Encounter Details Date Type Department Care Team ([facility] st Contact Info) Description 01/09/2025 Refill [facility] MEDICINE 230 [place] [address] Name, MD Jayjay 230 [place] [address] Chronic pain syndrome; Chronic thoracic back pain, [...] AM EDT documented as of this encounter Functional Status * Over the past 2 weeks, how often have you been bothered by any of the following problems? Question Answer Date of Assessment Author Patient Health Questionnaire-2 Score 5 01/11/2025 11:40 AM RITESHT Zen Whitney MA * Little interest or pleasure in doing things Answer Date of Assessment Author Nearly every day 01/11/2025 11:40 AM RITESHT Harika Saravia MA * Feeling down, depressed, or hopeless Answer Date of Assessment Author More than half the days 01/11/2025 11:40 AM Harika Olivares MA * Trouble falling or staying asleep, or sleeping too much Answer Date of Assessment Author Nearly every day 01/11/2025 11:40 AM Harika Mitchell MA * Feeling tired or having little energy Answer Date of Assessment Author Nearly every day 01/11/2025 11:40 AM Harika Mitchell MA * Poor appetite or overeating Answer Date of Assessment Author More than half the days 01/11/2025 11:40 AM Harika Olivares MA * Feeling bad about yourself - or that you are a failure or have let yourself or your family down Answer Date of Assessment Author More than half the days 01/11/2025 11:40 AM Harika Olivares MA * Trouble concentrating on things, such as reading the newspaper or watching television Answer Date of Assessment Author Nearly every day 01/11/2025 11:40 AM Harika Mitchell MA * Moving or speaking so slowly that other people could have noticed? Or the opposite - being so fidgety or restless that you have been moving around a lot more than usual. Answer Date of Assessment Author More than half the days 01/11/2025 11:40 AM Harika Olivares MA * Thoughts that you would be better off or hurting yourself in some way Answer Date of Assessment Author Not at all 01/11/2025 11:40 AM Harika Olivares MA * Patient Health Questionnaire-9 Score Answer Date of Assessment Author 01/11/2025 11:40 AM Harika Olivares MA * How difficult have these problems made it for you to do your work, take care of things at home, or get along with other people? Answer Date of Assessment Author Very difficult 01/11/2025 11:40 AM Harika Olivares MA * Over the last 2 weeks, how often have you been bothered by any of the following problems? Question Answer Date of Assessment Author Feeling nervous, anxious, or on edge 2 01/11/2025 11:41 AM Nicole Olivares MA Not being able to stop or control worrying 2 01/11/2025 11:41 AM Nicole Olivares MA Worrying too much about different things 2 01/11/2025 11:41 AM Nicole Olivares MA Trouble relaxing 2 01/11/2025 11:41 AM Harika Olivares MA Being so restless that it is hard to sit still 2 01/11/2025 11:41 AM EDT Nicole Whitney MA Becoming easily annoyed or irritable 2 01/11/2025 11:41 AM EDT Nicole Whitney MA Feeling afraid as if something awful might happen 1 01/11/2025 11:41 AM EDT Harika Saravia MA DALILA-7 Total Score 13 01/11/2025 11:41 AM EDT Harika Whitney MA documented as of this encounter Plan of Treatment Upcoming Encounters Date Type Department Care Team (Late st Contact Info) Description 06/12/2025 11:00 AM EST Office Visit [facility] MEDICINE [address] [place] [address] Jayjay [place] MD [address] [place] [address] 06/20/2025 10:00 AM EST Office Visit [facility] ADULT DENTAL [address] [place] [address] Joya Zaragoza DDS [address] [place] [address] 08/08/2025 10:00 AM EST Clinical Support [address] [address] Charisse Crisostomo, RN documented as of this [...] documented as of this encounter Care Teams Glue Cook Relationship Specialty Start Date End Date Jayjay [place] MD [address] [place] [address] PCP - General Family Medicine 07/26/15 documented as of this encounter
--- OUTSIDE RECORDS SUMMARY | 2025-05-07 19:18 | XMS_ITS | Encounter Summary ---
Author Organization [employer] Address [address] [facility] [address] 7t [place] [address] Care Team Providers Care Tool Grinder Name Role Phone Name, Jayjay JUAREZ Primary Care Provider [phone] Reason for Visit * Reason Comments Med Refill Encounter Details Date Type Department Care Team ([facility] st Contact Info) Description 07/16/2023 Refill [facility] MEDICINE 230 [place], [place] [phone] Name, MD Jayjay 230 [place] [address] Chronic thoracic back pain, unspecified back pain [...] Description 06/12/2025 11:00 AM EST Office Visit [facility] MEDICINE [address] [place] [address] Jayjay [place] MD [address] [place] [address] 06/20/2025 10:00 AM EST Office Visit [facility] ADULT DENTAL 505 [place] [address] Joya Zaragoza DDS [address] [place] [address] 08/08/2025 10:00 AM EST Clinical Support [address] [address] Charisse Crisostomo RN documented as of this [...] documented as of this encounter Care Teams Tool Grinder Relationship Specialty Start Date End Date Jayjay [place] MD [address] [place] [address], [place] [address] PCP - General Family Medicine 07/26/15 documented as of this encounter
--- OUTSIDE RECORDS SUMMARY | 2025-05-07 19:18 | XMS_ITS | Encounter Summary ---
Author Organization [email or web address] Address [address] [place] [address] 7 [place] [address] Care Team Providers Care Workplace Rehabilitation Officer Name Role Phone Name, Jayjay JUAREZ Primary Care Provider [phone] Reason for Visit * Reason Comments Med Refill Encounter Details Date Type Department Care Team (Late st Contact Info) Description 11/02/2022 Refill [facility] CHC MED & PEDS [address] [place], [place] [phone] Name, MD Jayjay 230 [place] [address] Chronic pain syndrome Social History Tobacco Use [...] Upcoming Encounters Date Type Department Care Team ([facility] Contact Info) Description 06/12/2025 11:00 AM EST Office Visit [facility] MEDICINE [address] [place] [address] Name, MD Jayjay [address] [place] [address] 06/20/2025 10:00 AM EST Office Visit [facility] CHC ADULT DENTAL [address] [place] [address] Joya Zaragoza DDS 230 [place] [address] 08/08/2025 10:00 AM EST Clinical Support [facility] MEDICINE 230 [place] [address] Charisse Crisostomo RN documented as of this encounter Visit Diagnoses Diagnosis Chronic pain syndrome documented in this encounter Additional Health Concerns Assessment Noted Time PHQ-9 Depression Total Score: 13 023 10:12 AM EDT documented as of this encounter Care Teams Workplace Rehabilitation Officer Relationship Specialty Start Date End Date Name, MD Jayjay [address] [place] [address] PCP - General Family Medicine 07/26/15 documented as of this encounter
--- OUTSIDE RECORDS SUMMARY | 2025-05-07 19:18 | XMS_ITS | Encounter Summary ---
Author Organization [employer] Address [address] [facility] 7t [place] [address] Care Team Providers Care Privacy Compliance Manager Name Role Phone Name, Jayjay JUAREZ Primary Care Provider [phone] Reason for Visit * Reason Comments Med Refill Encounter Details Date Type Department Care Team ([facility] st Contact Info) Description 01/21/2024 Refill [facility] MEDICINE 230 [place], [place] [phone] Name, MD Jayjay [address] [place] [address] Chronic pain syndrome Social History Tobacco Use [...] Description 06/12/2025 11:00 AM EST Office Visit [address] [address] Name, MD Jayjay [address] [place] [address] 06/20/2025 10:00 AM EST Office Visit [facility] CHC ADULT DENTAL [address] [place] [address] Joya Zaragoza DDS [address] [place] [address] 08/08/2025 10:00 AM EST Clinical Support [address] [address] Charisse Crisostomo, LISA documented as of this [...] documented as of this encounter Care Teams Privacy Compliance Manager Relationship Specialty Start Date End Date Name, MD Jayjay [address] [place] [address] PCP - General Family Medicine 07/26/15 documented as of this encounter
--- OUTSIDE RECORDS SUMMARY | 2025-05-07 19:18 | XMS_ITS | Encounter Summary ---
Author Organization [employer] Address [address] [place] [address] 7 [place] [address] Care Team Providers Care Awnings Mechanic Name Role Phone Name, Jayjay JUAREZ Primary Care Provider [phone] Encounter Details Date Type Department Care Team (Latest Contact Info) Description 08/09/2018 Abstract [facility] CONVERSIONS Dental, Provider, DDS Social History [...] Description 06/12/2025 11:00 AM EST Office Visit [address] [address] Name, MD Jayjay [address] [place] [address] 06/20/2025 10:00 AM EST Office Visit [facility] CHC ADULT DENTAL [address] [place] [address] Joya Zaragoza DDS [address] [place] [address] 08/08/2025 10:00 AM EST Clinical Support [address] [address] Charisse Crisostomo, RN documented as of this encounter Visit Diagnoses Not on filedocumented in this encounter Care Teams Awnings Mechanic Relationship Specialty Start Date End Date Name, MD Jayjay 230 [place] [address] PCP - General Family Medicine 07/26/15 documented as of this encounter
--- OUTSIDE RECORDS SUMMARY | 2025-05-07 19:18 | XMS_ITS | Encounter Summary ---
Author Organization [employer] Address [address] [place] [address] 7 [place] [address] Care Team Providers Care Lens Shaper Grinder Name Role Phone Name, Jayjay JUAREZ Primary Care Provider [phone] Encounter Details Date Type Department Care Team (Latest Contact Info) Description 08/11/2019 Abstract [facility] CONVERSIONS Dental, Provider, DDS Social History [...] Description 06/12/2025 11:00 AM EST Office Visit [address] [address] Name, MD Jayjay [address] [place] [address] 06/20/2025 10:00 AM EST Office Visit [facility] CHC ADULT DENTAL [address] [place] [address] Joya Zaragoza DDS [address] [place] [address] 08/08/2025 10:00 AM EST Clinical Support [address] [address] Charisse Crisostomo, RN documented as of this encounter Visit Diagnoses Not on filedocumented in this encounter Care Teams Lens Shaper Grinder Relationship Specialty Start Date End Date Name, MD Jayjay [address] [place] [address] PCP - General Family Medicine 07/26/15 documented as of this encounter
--- OUTSIDE RECORDS SUMMARY | 2025-05-07 19:18 | XMS_ITS | Encounter Summary ---
Author Organization [employer] Address [address] [place] [address] 7 [place] [address] Care Team Providers Care Research Software Engineer Name Role Phone Name, Jayjay JUAREZ Primary Care Provider [phone] Reason for Visit * Reason Comments Med Refill Encounter Details Date Type Department Care Team ([facility] st Contact Info) Description 07/12/2022 Refill [facility] MEDICINE 230 [place], [place] [phone] Name, MD Jayjay 230 [place] [address] Chronic pain syndrome Social History Tobacco Use Types Packs/Day Years Used Date Smoking Tobacco: Never Sex and Gender Information Value [...] suspected to have Coronavirus/COVID-19? No / Unsure 06/15/2022 1:42 PM EST documented as of this encounter Miscellaneous Notes * Telephone Encounter - Charisse Crisostomo RN - 07/14/2022 11:44 AM EST Duplicate request was sent by his pharmacy. Patient received Tramadol Rx written on 06/26/22 on 07/11/22. Confirmed this information with his pharmacy. documented in this encounter Plan of Treatment Upcoming Encounters Date Type Department Care Team (Late st Contact Info) Description 06/12/2025 11:00 AM EST Office Visit [address] [address] Jayjay Freeman MD [address] [place] [address] 06/20/2025 10:00 AM EST Office Visit [facility] CHC ADULT DENTAL [address] [place] [address] Joya Zaragoza DDS 230 [place] [address] 08/08/2025 10:00 AM EST Clinical Support [address] [address] Charisse Crisostomo RN documented as of this encounter Visit Diagnoses Diagnosis Chronic pain syndrome documented in this encounter Care Teams Research Software Engineer Relationship Specialty Start Date End Date Jayjay Freeman MD [address] [place] [address] PCP - General Family Medicine 07/26/15 documented as of this encounter
--- OUTSIDE RECORDS SUMMARY | 2025-05-07 19:18 | XMS_ITS | Encounter Summary ---
Author Organization [employer] Address [address] [place] [address] 7 [place] [address] Care Team Providers Care Body Line Finisher Name Role Phone Name, Jayjay JUAREZ Primary Care Provider [phone] Encounter Details Date Type Department Care Team (Latest Contact Info) Description 03/20/2021 Abstract [facility] CONVERSIONS Dental, Provider, DDS Social History Tobacco [...] Description 06/12/2025 11:00 AM EST Office Visit [address] [address] Name, MD Jayjay [address] [place] [address] 06/20/2025 10:00 AM EST Office Visit [facility] CHC ADULT DENTAL [address] [place] [address] Joya Zaragoza DDS [address] [place] [address] 08/08/2025 10:00 AM EST Clinical Support [address] [address] Charisse Crisostomo, RN documented as of this encounter Visit Diagnoses Not on filedocumented in this encounter Care Teams Body Line Finisher Relationship Specialty Start Date End Date Name, MD Jayjay 230 [place] [address] PCP - General Family Medicine 07/26/15 documented as of this encounter
--- OUTSIDE RECORDS SUMMARY | 2025-05-07 19:18 | XMS_ITS | Data Portability ---
Author Organization [employer] [facility] [place] [facility] Address [address] [place] [phone] Care Team Providers Care Director Of Field Service Name Role Phone HIM CCA OTHER Assessment Encounter Date Assessment Date Assessment LastModified by Organization Details LastModified Time 01/17/2025 01/17/2025 service called for back pain foud 64 yom with hx chronic back pain on oxycodone HTN T2DM OA hypothyroidis m c/o acute on chronic back pain reprots temp without access to oxycodone denies other inciting event, other sx VSS tender paraspinal muscles #Chronic Back pain trial ketorlac 30mg IM x1 notify service if worsening, otherwise return to ptimary team [email or web address] Not available 01/17/2025 21:02:24 Plan of Treatment Reminders Order Date Submit Date Provider Last Modified By Organization Details Last Modified Time Details Appointments None recorded. Lab None recorded. Referral None recorded. Procedures None recorded. Surgeries None recorded. Imaging None recorded. Medication Orders ketorolac 30 mg/mL injection solution 2024 025 [email or web address] [facility], [address] [place] [address], [address], 21:02:40 Patient TargetsNo targets recorded. Patient InstructionsNo instructions recorded. Reason for Referral None Reported. Medical Equipment None Reported. Allergies No known drug allergies Vitals Date Recorded Respiratory rate Body height Body temperature Oxygen saturation Oxygen saturation in Arterial blood by Pulse oximetry Heart rate Body weight Systolic And Diastolic Provider Name and Address Organization Details Last Updated DateTime 18 /min 167.64 cm 98 [degF] 98 % 98 % 70 /min 57306.6 g 119/80 mm[Hg] Not Available [employer] - production 21:01:19 Social History None recorded. Functional Status None recorded. Mental Status None recorded. Family History Nothing Reported. Medical History No medical history recorded. Past Encounters Encounter ID Performer Location Encounter Start Date Encounter Closed Date Diagnosis/Indication Diagnosis SNOMED-CT Code Diagnosis ICD10 Code Diagnosis IMO Codes Diagnosis Note [id number] Parveen Mitchell MD [facility] ED Medical [facility] [address] [place] [address] 01/17/2025 21:01:17 01/17/2025 22:04:42 Chronic low back pain 228663558 M54.50 G89.29 [id number] Health Concerns Section Related Observation LastModified by Organization Detai ls LastModified Time None Recorded Concern Status LastModified by Organization Details LastModified Time None Recorded Advance Directives Directive None Recorded Payers Insurance Date Sequence Insurance Name Policy Number Policy Dietz Covered Member ID Dietz Member ID Guarantor Name 01/17/2025 1 [facility] - DOS ON OR AFTER 2022 - DUAL ELIGIBLE - [employer] OPTIONS AND ONE CARE (MEDICARE REPLACEMENT/ADV ANTAGE - HMO) Kj Hardin [id number] Kj Hardin Notes Date Note Type Note Provider Name and Address Organization Details Recorded Time 01/17/2025 text/html [facility] Nurse Triage Notes (Geeta Dominguez): Reason For Request: Patient has back pain. Chief Complaints: Back Pain PMH: Hypertension, Diabetes Mellitus Type 2, Osteoarthritis, Hypothyroidism PMH Reviewed at 01/17/2025 - 14:07 Allergies Reviewed at 01/17/2025 - 14:07 Comments: 64 y.o male complains of Back Pain Patient acute on chronic back pain. He expresses severe arthritis and pinched nerves. He has received cortisone injections, however, doctors advised against anymore due to bone loss. Patient does have physical therapy but it makes the pain worse. He takes oxycodone for pain, but it does not offer much relief. He is in the process of getting an appt with the pain clinic. He has used heat, ice and patches. He denies any kidney disease and does not take any blood thinners. He would like to be evaluated. I provided information on the mobile health provider response time and advised the patient and/or caregiver to monitor reported signs and symptoms. I discussed the warning signs of when to seek emergency care. .................... .................... .................... .................... .................... .................... .................... . Ferry Pilot Note From Arun Arellano: Patient standing at door. Patient walks with a steady even slow GAIT with a cane. Patient complains of chronic lower back pain times years. Patient reports increased pain today because he ran out of oxycodone and gabapentin. Patient reports he has refills coming by mail tomorrow. Patient defies any recent trauma. Patient has nerve simulator installed the right side lower back. Patient denies any acute changes. Patient denies any other pain or complaints. Patient pink warm dry secondary exam unremarkable negative increased worker breathing positive full sentences, extremities unremarkable. Medication administered as ordered without complication using five rights. Red flags patient education discussed. Patient demonstrates understanding of care and plan. All communication through medical physics professor on phone. Patient given an opportunity to ask questions. [facility] Medication Orders: ketorolac 30 mg/mL injection solution: Administered Comment: IM .................... .................... .................... .................... .................... .................... .................... . [facility] Consulted: Parveen Mitchell .................... .................... .................... .................... .................... .................... .................... . Disposition: Fulfilled Parveen Mitchell MD [address] [place] [address],[address], [place], [address], LAINA - ARA OLIVAREZ 01/17/2025 21:30:48
--- OUTSIDE RECORDS SUMMARY | 2025-05-07 19:18 | XMS_ITS | Encounter Summary ---
Author Organization [employer] Address [address] [facility] 7t [place] [address] Care Team Providers Care Commercial Lines Insurance Agent Name Role Phone Name, Jayjay JUAREZ Primary Care Provider Reason for Visit * Reason Comments Med Refill Encounter Details Date Type Department Care Team ([facility] st Contact Info) Description 03/05/2025 Refill [facility] MEDICINE 230 [place], [place] [phone] Name, MD Jayjay 230 [place] [address] Chronic pain syndrome; Type 2 diabetes mellitus with hyperglycemia, without long-term current use of insulin ([facility]); Asthma, unspecified asthma severity, unspecified whether complicated, [...] Description 06/12/2025 11:00 AM EST Office Visit [address] [address] Name, MD Jayjay [address] [place] [address] 06/20/2025 10:00 AM EST Office Visit [facility] CHC ADULT DENTAL [address] [place] [address] Joya Zaragoza DDS [address] [place] [address] 08/08/2025 10:00 AM EST Clinical Support [address] [address] Charisse Crisostomo, RN documented as of this [...] without long-term current use of insulin (HCC) Asthma, unspecified asthma severity, unspecified whether complicated, unspecified whether persistent documented in this encounter Additional Health Concerns Assessment Noted Time PHQ-9 Depression Total Score: 20 025 11:40 AM EDT documented as of this encounter Care Teams Commercial Lines Insurance Agent Relationship Specialty Start Date End Date Name, MD Jayjay 230 [place] [address] PCP - General Family Medicine 07/26/15 documented as of this encounter
--- OUTSIDE RECORDS SUMMARY | 2025-05-07 19:18 | XMS_ITS | Encounter Summary ---
Author Organization [employer] Address 75 [facility] 7t [place] [address] Care Team Providers Care Curriculum Counselor Name Role Phone Name, Jayjay JUAREZ Primary Care Provider [phone] Reason for Visit * Reason Comments Med Refill Encounter Details Date Type Department Care Team ([facility] st Contact Info) Description 03/13/[address] [facility] MEDICINE 230 [place], [place] [phone] Name, MD Jayjay 230 [place] [address] Lumbar radiculopathy; Chronic left-sided thoracic back pain Social History [...] Description 06/12/2025 11:00 AM EST Office Visit [address] [address] Name, MD Jayjay [address] [place] [address] 06/20/2025 10:00 AM EST Office Visit [facility] CHC ADULT DENTAL 505 [place] [address] Joya Zaragoza DDS [address] [place] [address] 08/08/2025 10:00 AM EST Clinical Support [address] [address] Charisse Crisostomo, RN documented as of this encounter Goals Goal Patient Goal Type Associated Problems Recent Progress Patient-Stated? Author Blood Pressure < 140/90 Blood Pressure 140/80(2024 8:55 AM EDT) No Heriberto Arellano Hemoglobin A1c < 7 Result Component 6.7( 11:02 AM EDT) No Heriberto Arellano documented as of this encounter Visit Diagnoses Diagnosis Lumbar radiculopathy Thoracic or lumbosacral neuritis or radiculitis, unspecified Chronic left-sided thoracic back pain documented in this encounter Additional Health Concerns Assessment Noted Time PHQ-9 Depression Total Score: 20 025 11:40 AM EDT documented as of this encounter Care Teams Curriculum Counselor Relationship Specialty Start Date End Date Name, MD Jayjay 230 [place] [address] PCP - General Family Medicine 07/26/15 documented as of this encounter
--- OUTSIDE RECORDS SUMMARY | 2025-05-07 19:18 | XMS_ITS | Encounter Summary ---
Author Organization [employer] Address 75 [facility] 7t [place] [address] Care Team Providers Care Wrecking Crane Engine Operator Name Role Phone Name, Jayjay JUAREZ Primary Care Provider [phone] Reason for Visit * Reason Onset Date Comments Med Refill 10/29/2023 Encounter Details Date Type Department Care Team ([facility] st Contact Info) Description 10/29/[address] [facility] MEDICINE 230 [place], [place] [phone] Name, MD Jayjay 230 [place] [address] Chronic pain syndrome Social History Tobacco Use [...] Description 06/12/2025 11:00 AM EST Office Visit [address] [address] Name, MD Jayjay [address] [place] [address] 06/20/2025 10:00 AM EST Office Visit [facility] CHC ADULT DENTAL [address] [place] [address] Joya Zaragoza DDS [address] [place] [address] 08/08/2025 10:00 AM EST Clinical Support [address] [address] Charisse Crisostomo, RN documented as of this [...] documented as of this encounter Care Teams Wrecking Crane Engine Operator Relationship Specialty Start Date End Date Name, MD Jayjay 230 [place] [address] PCP - General Family Medicine 07/26/15 documented as of this encounter
--- OUTSIDE RECORDS SUMMARY | 2025-05-07 19:18 | XMS_ITS | Encounter Summary ---
Author Organization [employer] Address [address] [place] [address] 7 [place] [address] Care Team Providers Care Solo Truck Driver Name Role Phone Name, Jayjay JUAREZ Primary Care Provider [phone] Reason for Visit * Reason Comments Med Refill Encounter Details Date Type Department Care Team (Late st Contact Info) Description 10/27/2022 Refill [facility] MEDICINE [address] [place] [phone] Name, MD Jayjay [address] [place] [address] Chronic pain syndrome; Chronic cough Social History Tobacco Use Types Packs/Day Years [...] Description 06/12/2025 11:00 AM EST Office Visit [facility] MEDICINE [address] [place] [address] Name, MD Jayjay 230 [place] [address] 06/20/2025 10:00 AM EST Office Visit [facility] CHC ADULT DENTAL [address] [place] [address] Joya Zaragoza DDS 230 [place] [address] 08/08/2025 10:00 AM EST Clinical Support [facility] MEDICINE 230 [place] [address] Charisse Crisostomo RN documented as of this encounter Visit Diagnoses Diagnosis Chronic pain syndrome Chronic cough Cough documented in this encounter Additional Health Concerns Assessment Noted Time PHQ-9 Depression Total Score: 13 023 10:12 AM EDT documented as of this encounter Care Teams Solo Truck Driver Relationship Specialty Start Date End Date Name, MD Jayjay [address] [place] [address] PCP - General Family Medicine 07/26/15 documented as of this encounter
--- OUTSIDE RECORDS SUMMARY | 2025-05-07 19:18 | XMS_ITS | Encounter Summary ---
Author Organization [employer] Address 75 [facility] 7t [place] [address] Care Team Providers Care Wireless Operator Name Role Phone Name, Jayjay JUAREZ Primary Care Provider [phone] Reason for Visit * Reason Comments Med Refill Encounter Details Date Type Department Care Team ([facility] st Contact Info) Description 10/30/2023 Refill [facility] MEDICINE [address] [place], [place] [phone] Name, MD Jayjay 230 [place] [address] Chronic thoracic back pain, unspecified back pain [...] Description 06/12/2025 11:00 AM EST Office Visit [address] [address] Name, MD Jayjay [address] [place] [address] 06/20/2025 10:00 AM EST Office Visit [facility] CHC ADULT DENTAL [address] [place] [address] Joya Zaragoza DDS [address] [place] [address] 08/08/2025 10:00 AM EST Clinical Support [address] [address] Charisse Crisostomo, LISA documented as of this [...] documented as of this encounter Care Teams Wireless Operator Relationship Specialty Start Date End Date Name, MD Jayjay [address] [place] [address] PCP - General Family Medicine 07/26/15 documented as of this encounter
--- OUTSIDE RECORDS SUMMARY | 2025-05-07 19:18 | XMS_ITS | Encounter Summary ---
Author Organization [employer] Address [address] [place] [address] 7 [place] [address] Care Team Providers Care Roll Examiner Name Role Phone Name, Jayjay JUAREZ Primary Care Provider [phone] Reason for Visit * Reason Comments Med Refill Encounter Details Date Type Department Care Team (Late st Contact Info) Description 09/16/2022 Refill [facility] MEDICINE [address] [place] [address] NameJayjay MD [address] [place] [address] Chronic pain syndrome Social History Tobacco Use [...] 11:00 AM EST Office Visit [facility] MEDICINE [address] [place] [phone] Jayjay Freeman MD [address] [place] [address] 06/20/2025 10:00 AM EST Office Visit [facility] CHC ADULT DENTAL [address] [place], [place] [phone] Joya Zaragoza DDS 230 [place] [address] 08/08/2025 10:00 AM EST Clinical Support [facility] MEDICINE 230 [place] [address] Charisse Crisostomo RN documented as of this encounter Visit Diagnoses Diagnosis Chronic pain syndrome documented in this encounter Care Teams Roll Examiner Relationship Specialty Start Date End Date Name, MD Jayjay 230 [place] [address] PCP - General Family Medicine 07/26/15 documented as of this encounter
--- OUTSIDE RECORDS SUMMARY | 2025-05-07 19:19 | XMS_ITS | Encounter Summary ---
Author Organization [employer] Address 75 [facility] 7t [place] [address] Care Team Providers Care Expediter Name Role Phone Name, Jayjay JUAREZ Primary Care Provider [phone] Reason for Visit * Reason Comments Med Refill Encounter Details Date Type Department Care Team ([facility] st Contact Info) Description 03/14/2024 Refill [facility] MEDICINE 230 [place], [place] [phone] Kerry Milner FNP 230 [place] [address] Chronic pain syndrome; Chronic back pain, unspecified [...] Telephone Encounter - Charisse Crisostomo RN - 03/23/2024 10:05 AM EDT Pt had BEHAVIOUR SUPPORT TEACHER RV appt today Pt was emotional this visit. Spoke of his being back in hospital and her cancer has spread. States he doesn't sleep, he wakes up every 3 hours to give her pain medication because she's in so much pain. Also shared he takes care of his 7 year old granddaughter during the day. Discussed with patient wifes condition, long-term facilities, hospice care. Encouraged him tomake a priority of caring for himself too. Offered to arrange consult. He declined, states he has a psychiatrist, but had to cancel his appt the other day. Encouraged him to call and reschedule the appt, he stated he would. documented in this encounter Plan of Treatment Upcoming Encounters Date Type Department Care Team (Late st Contact Info) Description 06/12/2025 11:00 AM EST Office Visit [facility] MEDICINE 230 [place] [address] Name, MD Jayjay 230 [place] [address] 06/20/2025 10:00 AM EST Office Visit [facility] CHC ADULT DENTAL [address] [place] [address] Joya Zaragoza DDS 230 [place] [address] 08/08/2025 10:00 AM EST Clinical Support [address] [address] Charisse Crisostomo RN documented as of this [...] documented as of this encounter Care Teams Expediter Relationship Specialty Start Date End Date Name, [place] [address] PCP - General Family Medicine 07/26/15 documented as of this encounter
--- OUTSIDE RECORDS SUMMARY | 2025-05-07 19:19 | XMS_ITS | Encounter Summary ---
Author Organization [employer] Address [address] [facility] [address] 7t [place] [address] Care Team Providers Care Visual Coordinator Name Role Phone Name, Jayjay JUAREZ Primary Care Provider [phone] Reason for Visit * Reason Comments Med Refill Encounter Details Date Type Department Care Team ([facility] st Contact Info) Description 11/24/2023 Refill [facility] MED[facility]INE 230 [place] [address] Name, MD Jayjay 230 [place] [address] Chronic pain syndrome; Chronic left-sided thoracic back pain Social History [...] Description 06/12/2025 11:00 AM EST Office Visit [address] [address] Name, MD Jayjay [address] [place] [address] 06/20/2025 10:00 AM EST Office Visit [facility] CHC ADULT DENTAL [address] [place] [address] Joya Zaragoza DDS [address] [place] [address] 08/08/2025 10:00 AM EST Clinical Support [address] [address] Charisse Crisostomo, RN documented as of this encounter Goals Goal Patient Goal Type Associated Problems Recent Progress Patient-Stated? Author Blood Pressure < 140/90 Blood Pressure 140/80(2024 8:55 AM EDT) No Heriberto Arellano Hemoglobin A1c < 7 Result Component 6.7( 11:02 AM EDT) No Heriberto Arellano documented as of this encounter Visit Diagnoses Diagnosis Chronic pain syndrome Chronic left-sided thoracic back pain documented in this encounter Additional Health Concerns Assessment Noted Time PHQ-9 Depression Total Score: 6 09/27/19 24 9:51 AM EDT documented as of this encounter Care Teams Visual Coordinator Relationship Specialty Start Date End Date Name, MD Jayjay 230 [place] [address] PCP - General Family Medicine 07/26/15 documented as of this encounter
--- OUTSIDE RECORDS SUMMARY | 2025-05-07 19:19 | XMS_ITS | Encounter Summary ---
Author Organization [employer] Address 75 [facility] 7t [place] [address] Care Team Providers Care Primary Clinician Name Role Phone Name, Jayjay JUAREZ Primary Care Provider [phone] Reason for Visit * Reason Comments Med Refill Encounter Details Date Type Department Care Team ([facility] st Contact Info) Description 11/03/2024 Refill [facility] MEDICINE 230 [place], [place] [phone] Rylee Forrester, LUIS 230 [place] [address] Chronic pain syndrome Social History Tobacco Use [...] 06/12/2025 11:00 AM EST Office Visit [address] [address] Name, MD Jayjay [address] [place] [address] 06/20/2025 10:00 AM EST Office Visit [facility] CHC ADULT DENTAL [address] [place] [address] Joya Zaragoza DDS [address] [place] [address] 08/08/2025 10:00 AM EST Clinical Support [address] [address] Charisse Crisostomo, RN documented as of this [...] as of this encounter Care Teams Primary Clinician Relationship Specialty Start Date End Date Name, MD Jayjay 230 [place] [address] PCP - General Family Medicine 07/26/15 documented as of this encounter
--- OUTSIDE RECORDS SUMMARY | 2025-05-07 19:19 | XMS_ITS | Encounter Summary ---
Author Organization [employer] Address 75 [facility] 7t [place] [address] Care Team Providers Care Field Representative Name Role Phone Name, Jayjay JUAREZ Primary Care Provider [phone] Reason for Visit * Reason Comments Med Refill Encounter Details Date Type Department Care Team ([facility] st Contact Info) Description 02/07/[address] [facility] MEDICINE 230 [place], [place] [phone] Name, MD Jayjay [address] [place] [address] Chronic thoracic back pain, unspecified back pain [...] 11:00 AM EST Office Visit [facility] MEDICINE [address] [place] [address] Name, MD Jayjay [address] [place] [address] 06/20/2025 10:00 AM EST Office Visit [facility] CHC ADULT DENTAL [address] [place] [address] Joya Zaragoza DDS [address] [place] [address] 08/08/2025 10:00 AM EST Clinical Support [address] [address] Charisse Crisostomo, RN documented as of this [...] documented as of this encounter Care Teams Field Representative Relationship Specialty Start Date End Date Name, MD Jayjay [address] [place] [address] PCP - General Family Medicine 07/26/15 documented as of this encounter
--- OUTSIDE RECORDS SUMMARY | 2025-05-07 19:19 | XMS_ITS | Encounter Summary ---
Author Organization [employer] Address 75 [facility] 7t [place] [address] Care Team Providers Care Director Nurses' Registry Name Role Phone Name, Jayjay JUAREZ Primary Care Provider Reason for Visit * Reason Onset Date Comments Med Refill 11/21/2023 Encounter Details Date Type Department Care Team ([facility] st Contact Info) Description 11/21/2023 Refill [facility] MEDICINE 230 [place], [place] [phone] Name, MD Jayjay 230 [place] [address] Chronic pain syndrome Social History Tobacco Use [...] Description 06/12/2025 11:00 AM EST Office Visit [address] [address] Name, MD Jayjay [address] [place] [address] 06/20/2025 10:00 AM EST Office Visit [facility] CHC ADULT DENTAL [address] [place] [address] Joya Zaragoza DDS [address] [place] [address] 08/08/2025 10:00 AM EST Clinical Support [address] [address] Charisse Crisostomo, RN documented as of this [...] documented as of this encounter Care Teams Director Nurses' Registry Relationship Specialty Start Date End Date Name, MD Jayjay 230 [place] [address] PCP - General Family Medicine 07/26/15 documented as of this encounter
--- OUTSIDE RECORDS SUMMARY | 2025-05-07 19:19 | XMS_ITS | Encounter Summary ---
Author Organization [employer] Address 75 [facility] 7t [place] [address] Care Team Providers Care High School Librarian Name Role Phone Name, Jayjay JUAREZ Primary Care Provider [phone] Reason for Visit * Reason Comments Med Refill Encounter Details Date Type Department Care Team ([facility] st Contact Info) Description 09/28/2024 Refill [facility] MEDICINE 230 [place], [place] [phone] Name, MD Jayjay 230 [place] [address] Chronic pain syndrome Social History Tobacco Use [...] 06/12/2025 11:00 AM EST Office Visit [address] [address] Name, MD Jayjay [address] [place] [address] 06/20/2025 10:00 AM EST Office Visit [facility] CHC ADULT DENTAL [address] [place] [address] Joya Zaragoza DDS [address] [place] [address] 08/08/2025 10:00 AM EST Clinical Support [address] [address] Charisse Crisostomo, RN documented as of this [...] documented as of this encounter Care Teams High School Librarian Relationship Specialty Start Date End Date Name, MD Jayjay 230 [place] [address] PCP - General Family Medicine 07/26/15 documented as of this encounter
--- OUTSIDE RECORDS SUMMARY | 2025-05-07 19:19 | XMS_ITS | Encounter Summary ---
Author Organization [employer] Address 75 [facility] 7t [place] [address] Care Team Providers Care Major League Baseball Umpire Name Role Phone Name, Jayjay JUAREZ Primary Care Provider [phone] Reason for Visit * Reason Comments Med Refill Encounter Details Date Type Department Care Team ([facility] st Contact Info) Description 02/04/2024 Refill [facility] MEDICINE 230 [place], [place] [phone] Name, MD Jayjay 230 [place] [address] Asthma, unspecified asthma severity, unspecified whether complicated, [...] Description 06/12/2025 11:00 AM EST Office Visit [facility] MEDICINE [address] [place] [address] Name, MD Jayjay [address] [place] [address] 06/20/2025 10:00 AM EST Office Visit [facility] CHC ADULT DENTAL [address] [place] [address] Joya Zaragoza DDS [address] [place] [address] 08/08/2025 10:00 AM EST Clinical Support [address] [address] Charisse Crisostomo, RN documented as of this [...] documented as of this encounter Care Teams Major League Baseball Umpire Relationship Specialty Start Date End Date Name, MD Jayjay 230 [place] [address] PCP - General Family Medicine 07/26/15 documented as of this encounter
--- OUTSIDE RECORDS SUMMARY | 2025-05-07 19:19 | XMS_ITS | Encounter Summary ---
Author Organization [employer] Address 75 [facility] 7t [place] [address] Care Team Providers Care Cutter Down Name Role Phone Name, Jayjay JUAREZ Primary Care Provider [phone] Reason for Visit * Reason Comments Med Refill Encounter Details Date Type Department Care Team ([facility] st Contact Info) Description 02/23/2024 Refill [facility] MEDICINE 230 [place], [place] [phone] Name, MD Jayjay 230 [place] [address] Chronic back pain, unspecified back location, unspecified [...] 11:00 AM EST Office Visit [facility] MEDICINE [address] [place] [address] Name, MD Jayjay [address] [place] [address] 06/20/2025 10:00 AM EST Office Visit [facility] CHC ADULT DENTAL [address] [place] [address] Joya Zaragoza DDS 230 [place] [address] 08/08/2025 10:00 AM EST Clinical Support [address] [address] Charisse Crisostomo, LISA documented as of this encounter Goals Goal Patient Goal Type Associated Problems Recent Progress Patient-Stated? Author Blood Pressure < 140/90 Blood Pressure 140/80(2024 8:55 AM EDT) Heriberto Barnard Hemoglobin A1c < 7 Result Component 6.7( 11:02 AM EDT) Heriberto Barnard documented as of this encounter Visit Diagnoses Diagnosis Chronic back pain, unspecified back location, unspecified back pain laterality documented in this encounter Additional Health Concerns Assessment Noted Time PHQ-9 Depression Total Score: 6 09/27/19 24 9:51 AM EDT documented as of this encounter Care Teams Cutter Down Relationship Specialty Start Date End Date Name, MD Jayjay 230 [place] [address] PCP - General Family Medicine 07/26/15 documented as of this encounter
--- OUTSIDE RECORDS SUMMARY | 2025-05-07 19:19 | XMS_ITS | Encounter Summary ---
Author Organization [employer] Address [address] [facility] [address] 7t [place] [address] Care Team Providers Care Rework Operator Name Role Phone Name, Jayjay JUAREZ Primary Care Provider [phone] Reason for Visit * Reason Comments Med Refill Encounter Details Date Type Department Care Team ([facility] st Contact Info) Description 09/19/2024 Refill [facility] [address] [place], [place] [phone] Name, MD Jayjay 230 [place] [address] Chronic pain syndrome; Chronic back pain, unspecified [...] the past 12 months, has t he [employer], gas, oil or water company threatened to [...] Description 06/12/2025 11:00 AM EST Office Visit [address] [address] Name, MD Jayjay [address] [place] [address] 06/20/2025 10:00 AM EST Office Visit [facility] CHC ADULT DENTAL 505 [place] [address] Joya Zaragoza DDS [address] [place] [address] 08/08/2025 10:00 AM EST Clinical Support [address] [address] Charisse Crisostomo, RN documented as of this [...] documented as of this encounter Care Teams Rework Operator Relationship Specialty Start Date End Date Name, MD Jayjay 230 [place] [address] PCP - General Family Medicine 07/26/15 documented as of this encounter"
--- OUTSIDE RECORDS SUMMARY | 2025-05-07 19:19 | XMS_ITS | Encounter Summary ---
Author Organization [employer] Address [address] [facility] [address] 7t [place] [address] Care Team Providers Care French Lecturer Name Role Phone Name, Jayjay JUAREZ Primary Care Provider [phone] Reason for Visit * Reason Comments Med Refill Encounter Details Date Type Department Care Team ([facility] st Contact Info) Description 11/22/2023 Refill [facility] MEDICINE 230 [place] [address] Name, MD Jayjay 230 [place] [address] Chronic left-sided thoracic back pain; Chronic pain [...] Description 06/12/2025 11:00 AM EST Office Visit [address] [address] Name, MD Jayjay [address] [place] [address] 06/20/2025 10:00 AM EST Office Visit [facility] CHC ADULT DENTAL [address] [place] [address] Joya Zaragoza DDS [address] [place] [address] 08/08/2025 10:00 AM EST Clinical Support [address] [address] Charsise Crisostomo, RN documented as of this encounter Goals Goal Patient Goal Type Associated Problems Recent Progress Patient-Stated? Author Blood Pressure < 140/90 Blood Pressure 140/80(2024 8:55 AM EDT) No Heriberto Arellano Hemoglobin A1c < 7 Result Component 6.7( 11:02 AM EDT) No Heriberto Arellano documented as of this encounter Visit Diagnoses Diagnosis Chronic left-sided thoracic back pain Chronic pain syndrome documented in this encounter Additional Health Concerns Assessment Noted Time PHQ-9 Depression Total Score: 6 09/27/19 24 9:51 AM EDT documented as of this encounter Care Teams French Lecturer Relationship Specialty Start Date End Date Name, MD Jayjay 230 [place] [address] PCP - General Family Medicine 07/26/15 documented as of this encounter
--- OUTSIDE RECORDS SUMMARY | 2025-05-07 19:19 | XMS_ITS | Encounter Summary ---
Author Organization [employer] Address 75 [facility] 7t [place] [address] Care Team Providers Care Core Driller Name Role Phone Name, Jayjay JUAREZ Primary Care Provider [phone] Reason for Visit * Reason Comments Med Refill Encounter Details Date Type Department Care Team ([facility] st Contact Info) Description 02/16/2024 Refill [facility] MEDICINE 230 [place], [place] [phone] Name, MD Jayjay 230 [place] [address] Chronic pain syndrome; Chronic thoracic back pain, [...] 11:00 AM EST Office Visit [facility] MEDICINE [address] [place] [address] Name, MD Jayjay [address] [place] [address] 06/20/2025 10:00 AM EST Office Visit [facility] CHC ADULT DENTAL [address] [place] [address] Joya Zaragoza DDS [address] [place] [address] 08/08/2025 10:00 AM EST Clinical Support [address] [address] Charisse Crisostomo, RN documented as of this [...] documented as of this encounter Care Teams Core Driller Relationship Specialty Start Date End Date Name, MD Jayjay 230 [place] [address] PCP - General Family Medicine 07/26/15 documented as of this encounter
--- OUTSIDE RECORDS SUMMARY | 2025-05-07 19:19 | XMS_ITS | Encounter Summary ---
Author Organization [employer] Address [address] [place] [address] 7t [place] [address] Care Team Providers Care Hospice Office Coordinator Name Role Phone Name, Jayjay JUAREZ Primary Care Provider [phone] Reason for Visit * Reason Comments Med Refill Encounter Details Date Type Department Care Team (Late st Contact Info) Description 01/18/2023 Refill [facility] MEDICINE 230 [place], [place] [phone] Name, MD Jayjay 230 [place] [address] Chronic pain syndrome Social History Tobacco Use [...] suspected to have Coronavirus/COVID-19? No / Unsure 01/04/2023 11:00 AM EDT documented as of this encounter Plan of Treatment Upcoming Encounters Date Type Department Care Team (Late st Contact Info) Description 06/12/2025 11:00 AM EST Office Visit [facility] MEDICINE [address] [place] [address] Name, MD Jayjay [address] [place] [address] 06/20/2025 10:00 AM EST Office Visit [facility] CHC ADULT DENTAL [address] [place] [address] Joya Zaragoza DDS [address] [place] [address] 08/08/2025 10:00 AM EST Clinical Support [address] [address] Charisse Crisostomo, LISA documented as of this encounter Visit Diagnoses Diagnosis Chronic pain syndrome documented in this encounter Additional Health Concerns Assessment Noted Time PHQ-9 Depression Total Score: 13 10/06/ 023 10:12 AM EDT documented as of this encounter Care Teams Hospice Office Coordinator Relationship Specialty Start Date End Date Name, MD Jayjay [address] [place] [address] PCP - General Family Medicine 07/26/15 documented as of this encounter
--- OUTSIDE RECORDS SUMMARY | 2025-05-07 19:19 | XMS_ITS | Encounter Summary ---
Author Organization [employer] Address 75 [facility] 7t [place] [address] Care Team Providers Care Mutuel Machine Operator Name Role Phone Name, Jayjay JUAREZ Primary Care Provider [phone] Reason for Visit * Reason Comments Med Refill Encounter Details Date Type Department Care Team ([facility] st Contact Info) Description 02/23/2024 Refill [facility] MEDICINE 230 [place], [place] [phone] Name, MD Jayjay 230 [place] [address] Chronic back pain, unspecified back location, unspecified [...] the past 12 months, has t he [employer], gas, oil or water company threatened to [...] Description 06/12/2025 11:00 AM EST Office Visit [facility] MEDICINE [address] [place] [address] Name, MD Jayjay [address] [place] [address] 06/20/2025 10:00 AM EST Office Visit [facility] ADULT DENTAL [address] [place] [address] Joya Zaragoza DDS [address] [place] [address] 08/08/2025 10:00 AM EST Clinical Support [address] [address] Charisse Crisostomo, LISA documented as of this [...] documented as of this encounter Care Teams Mutuel Machine Operator Relationship Specialty Start Date End Date Name, MD Jayjay 230 [place] [address] PCP - General Family Medicine 07/26/15 documented as of this encounter
--- OUTSIDE RECORDS SUMMARY | 2025-05-07 19:19 | XMS_ITS | Encounter Summary ---
Author Organization [employer] Address 75 [facility] 7t [place] [address] Care Team Providers Care Dimpling Machine Operator Name Role Phone Name, Jayjay JUAREZ Primary Care Provider [phone] Reason for Visit * Reason Onset Date Comments REGIONAL ACCOUNT EXECUTIVE Agreement 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 05/07/2025 Forgot Percocet 05/07/2025 Abnormal UTOX 05/07/2025 Percocet count discrepancy 05/07/2025 Encounter Details Date Type Department Care Team (Late st Contact Info) Description 05/07/2025 Telephone [facility] MEDICINE 230 [place] [address] Charisse Crisostomo RN REGIONAL ACCOUNT EXECUTIVE Agreement 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; Forgot Percocet; Abnormal UTOX; Percocet count discrepancy Social History Tobacco Use Types Packs/Day Years [...] Encounter - Charisse Crisostomo RN - 05/07/2025 10:54 AM EDT Pt had REGIONAL ACCOUNT EXECUTIVE Renewal appointment Forgot to bring his Percocet to the appointment, is supposed to come back this afternoon with his medication. UTOX was Pos OXY, MTD and FENT. Sent out for MTD & FENT confirmation. He has tested positive for both substances before in his UTOX, but lab confirmations were all negative. BPI completed on: 05/07/2025 , pain severity score: 8, activity interference score: 8 BPI completed on: 05/16/2024 , pain severity score: 7, activity interference score: 6 Pt returned at 2:30pm for his percocet [...] stated he was going to do that. documented in this encounter Plan of Treatment Upcoming Encounters Date Type Department Care Team (Late st Contact Info) Description 06/12/2025 11:00 AM EST Office Visit [address] [address] Jayjay Freeman MD [address] [place] [address] 06/20/2025 10:00 AM EST Office Visit [facility] CHC ADULT DENTAL [address] [place], [place] [phone] Joya Zaragoza DDS [address] [place] [phone] 08/08/2025 10:00 AM EST Clinical Support [address] [address] Charisse Crisostomo, LISA documented as of this [...] documented as of this encounter Care Teams Dimpling Machine Operator Relationship Specialty Start Date End Date Jayjay Freeman MD [address] [place] [address] PCP - General Family Medicine 07/26/15 documented as of this encounter
--- OUTSIDE RECORDS SUMMARY | 2025-05-07 19:19 | XMS_ITS | Encounter Summary ---
Author Organization [employer] Address 75 [facility] 7t [place] [address] Care Team Providers Care Staff Command And Control Officer Name Role Phone Name, Jayjay JUAREZ Primary Care Provider [phone] Reason for Visit * Reason Comments Med Refill Encounter Details Date Type Department Care Team ([facility] st Contact Info) Description 11/03/2024 Refill [facility] MEDICINE 230 [place], [place] [phone] Rylee Forrester, LUIS 230 [place] [address] Chronic pain syndrome Social History Tobacco Use [...] Description 06/12/2025 11:00 AM EST Office Visit [address] [address] Name, MD Jayjay [address] [place] [address] 06/20/2025 10:00 AM EST Office Visit [facility] CHC ADULT DENTAL [address] [place] [address] Joya Zaragoza DDS [address] [place] [address] 08/08/2025 10:00 AM EST Clinical Support [address] [address] Charisse Crisostomo, RN documented as of this [...] documented as of this encounter Care Teams Staff Command And Control Officer Relationship Specialty Start Date End Date Name, MD Jayjay 230 [place] [address] PCP - General Family Medicine 07/26/15 documented as of this encounter
--- OUTSIDE RECORDS SUMMARY | 2025-05-07 19:19 | XMS_ITS | Encounter Summary ---
Author Organization [employer] Address 75 [facility] 7t [place] [address] Care Team Providers Care Financial Associate Name Role Phone Name, Jayjay JUAREZ Primary Care Provider [phone] Reason for Visit * Reason Comments Med Refill Encounter Details Date Type Department Care Team ([facility] st Contact Info) Description 04/04/2024 Refill [facility] MEDICINE 230 [place], [place] [phone] Name, MD Jayjay 230 [place] [address] Chronic pain syndrome Social History Tobacco Use [...] 06/12/2025 11:00 AM EST Office Visit [address] [address] Name, MD Jayjay [address] [place] [address] 06/20/2025 10:00 AM EST Office Visit [facility] CHC ADULT DENTAL [address] [place] [address] Joya Zaragoza DDS [address] [place] [address] 08/08/2025 10:00 AM EST Clinical Support [address] [address] Charisse Crisostomo, RN documented as of this [...] as of this encounter Care Teams Financial Associate Relationship Specialty Start Date End Date Name, MD Jayjay 230 [place] [address] PCP - General Family Medicine 07/26/15 documented as of this encounter
--- OUTSIDE RECORDS SUMMARY | 2025-05-07 19:19 | XMS_ITS | Encounter Summary ---
Author Organization [employer] Address [address] [place] [address] 7t [place] [address] Care Team Providers Care Soft Metals Engraver Hand Name Role Phone Name, Jayjay JUAREZ Primary Care Provider [phone] Reason for Visit * Reason Comments Med Refill Encounter Details Date Type Department Care Team (Late st Contact Info) Description 01/27/2023 Refill [facility] MEDICINE 230 [place], [place] [phone] Name, MD Jayjay 230 [place] [address] Chronic pain syndrome Social History Tobacco Use [...] Description 06/12/2025 11:00 AM EST Office Visit [facility] MEDICINE [address] [place] [address] Name, MD Jayjay [address] [place] [address] 06/20/2025 10:00 AM EST Office Visit [facility] CHC ADULT DENTAL [address] [place] [address] Joya Zaragoza DDS [address] [place] [address] 08/08/2025 10:00 AM EST Clinical Support [address] [address] Charisse Crisostomo, LISA documented as of this encounter Visit Diagnoses Diagnosis Chronic pain syndrome documented in this encounter Additional Health Concerns Assessment Noted Time PHQ-9 Depression Total Score: 13 10/06/ 023 10:12 AM EDT documented as of this encounter Care Teams Soft Metals Engraver Hand Relationship Specialty Start Date End Date Name, MD Jayjay [address] [place] [address] PCP - General Family Medicine 07/26/15 documented as of this encounter
--- OUTSIDE RECORDS SUMMARY | 2025-05-07 19:19 | XMS_ITS | Encounter Summary ---
Author Organization [employer] Address 75 [facility] 7 [place] [address] Care Team Providers Care Children'S Entertainer Name Role Phone Name, Jayjay JUAREZ Primary Care Provider [phone] Reason for Visit * Reason Onset Date Comments Med Refill 02/22/2024 Encounter Details Date Type Department Care Team (Late st Contact Info) Description 02/22/2024 Refill [facility] MEDICINE 230 [place], [place] [phone] Name, MD Jayjay 230 [place] [address] Chronic pain syndrome Social History Tobacco Use [...] Description 06/12/2025 11:00 AM EST Office Visit [facility] MEDICINE [address] [place] [address] Name, MD Jayjay [address] [place] [address] 06/20/2025 10:00 AM EST Office Visit [facility] CHC ADULT DENTAL [address] [place] [address] Joya Zaragoza DDS [address] [place] [address] 08/08/2025 10:00 AM EST Clinical Support [address] [address] Charisse Crisostomo, RN documented as of this [...] documented as of this encounter Care Teams Children'S Entertainer Relationship Specialty Start Date End Date Name, MD Jayjay 230 [place] [address] PCP - General Family Medicine 07/26/15 documented as of this encounter
--- OUTSIDE RECORDS SUMMARY | 2025-05-07 19:19 | XMS_ITS | Encounter Summary ---
Author Organization [employer] Address 75 [facility] 7t [place] [address] Care Team Providers Care Technical Developer Name Role Phone Name, Jayjay JUAREZ Primary Care Provider [phone] Reason for Visit * Reason Comments Med Refill Encounter Details Date Type Department Care Team ([facility] st Contact Info) Description 03/07/2024 Refill [facility] MEDICINE 230 [place], [place] [phone] Name, MD Jayjay 230 [place] [address] Chronic pain syndrome Social History Tobacco Use [...] Description 06/12/2025 11:00 AM EST Office Visit [address] [address] Name, MD Jayjay [address] [place] [address] 06/20/2025 10:00 AM EST Office Visit [facility] CHC ADULT DENTAL [address] [place] [address] Joya Zaragoza DDS [address] [place] [address] 08/08/2025 10:00 AM EST Clinical Support [address] [address] Charisse Crisostomo, RN documented as of this [...] documented as of this encounter Care Teams Technical Developer Relationship Specialty Start Date End Date Name, MD Jayjay 230 [place] [address] PCP - General Family Medicine 07/26/15 documented as of this encounter
--- OUTSIDE RECORDS SUMMARY | 2025-05-07 19:19 | XMS_ITS | Encounter Summary ---
Author Organization [employer] Address 75 [facility] 7t [place] [address] Care Team Providers Care Cdl B Driver Name Role Phone Name, Jayjay JUAREZ Primary Care Provider [phone] Reason for Visit * Reason Comments Med Refill Encounter Details Date Type Department Care Team ([facility] st Contact Info) Description 11/13/2024 Refill [facility] MEDICINE 230 [place], [place] [phone] Name, MD Jayjay 230 [place] [address] Chronic thoracic back pain, unspecified back pain laterality; Asthma, unspecified asthma severity, unspecified whether complicated, unspecified whether persistent; Chronic pain syndrome Social History Tobacco Use [...] Description 06/12/2025 11:00 AM EST Office Visit [address] [address] Name, MD Jayjay [address] [place] [address] 06/20/2025 10:00 AM EST Office Visit [facility] CHC ADULT DENTAL 505 [place] [address] Joya Zaragoza DDS [address] [place] [address] 08/08/2025 10:00 AM EST Clinical Support [address] [address] Charisse Crisostomo, LISA documented as of this [...] unspecified whether complicated, unspecified whether persistent Chronic pain syndrome documented in this encounter Additional Health Concerns Assessment Noted Time PHQ-9 Depression Total Score: 6 09/27/19 24 9:51 AM EDT documented as of this encounter Care Teams Cdl B Driver Relationship Specialty Start Date End Date Name, MD Jayjay 230 [place] [address] PCP - General Family Medicine 07/26/15 documented as of this encounter
--- OUTSIDE RECORDS SUMMARY | 2025-05-07 19:19 | XMS_ITS | Encounter Summary ---
Author Organization [employer] Address 75 [facility] 7t [place] [address] Care Team Providers Care Dental Hygiene Administrative Assistant Name Role Phone Name, Jayjay JUAREZ Primary Care Provider [phone] Reason for Visit * Reason Comments Med Refill Encounter Details Date Type Department Care Team ([facility] st Contact Info) Description 11/17/2024 Refill [facility] MEDICINE 230 [place], [place] [phone] Rylee Forrester, LUIS 230 [place] [address] Chronic pain syndrome Social History Tobacco Use [...] Description 06/12/2025 11:00 AM EST Office Visit [address] [address] Name, MD Jayjay [address] [place] [address] 06/20/2025 10:00 AM EST Office Visit [facility] CHC ADULT DENTAL [address] [place] [address] Joya Zaragoza DDS [address] [place] [address] 08/08/2025 10:00 AM EST Clinical Support [address] [address] Charisse Crisostomo, RN documented as of this [...] documented as of this encounter Care Teams Dental Hygiene Administrative Assistant Relationship Specialty Start Date End Date Name, MD Jayjay 230 [place] [address] PCP - General Family Medicine 07/26/15 documented as of this encounter
--- OUTSIDE RECORDS SUMMARY | 2025-05-07 19:19 | XMS_ITS | Encounter Summary ---
Author Organization [employer] Address [address] [place] [address] 7 [place] [address] Care Team Providers Care Porcelain Turner Name Role Phone Name, Jayjay JUAREZ Primary Care Provider [phone] Encounter Details Date Type Department Care Team (Late st Contact Info) Description 12/21/2022 Abstract [facility] MEDICINE [address] [place] [address] Jayjay Freeman MD [address] [place] [address] Social History Tobacco Use Types Packs/Day Years [...] suspected to have Coronavirus/COVID-19? No / Unsure 12/14/2022 11:17 AM EDT documented as of this encounter Plan of Treatment Upcoming Encounters Date Type Department Care Team (Late st Contact Info) Description 06/12/2025 11:00 AM EST Office Visit [address] [phone] Jayjay Freeman MD 230 [place] [address] 06/20/2025 10:00 AM EST Office Visit [facility] CHC ADULT DENTAL [address] [place] [address] Joya Zaragoza DDS 230 [place] [address] 08/08/2025 10:00 AM EST Clinical Support [facility] MEDICINE 230 [place] [address] Charisse Crisostomo, LISA documented as of this encounter Procedures Procedure Name Priority Date/Time Associated Diagnosis Comments COLONOSCOPY Routine 05/18/2018 8:40 AM EST documented in this encounter Results * Hm Colonoscopy (05/18/2018 8:40 AM EST) Colonoscopy Normal Normal Narrative Cherry Castrejon - 05/18/2018 8:40 AM EST Recommended 5 year follow up ( [facility] Historical Provider HEALTH MAINTENANCE Final Result documented in this encounter Visit Diagnoses Not on filedocumented in this encounter Additional Health Concerns Assessment Noted Time PHQ-9 Depression Total Score: 13 10/06/ 023 10:12 AM EDT documented as of this encounter Care Teams Porcelain Turner Relationship Specialty Start Date End Date Name, MD Jayjay 230 [place] [address] PCP - General Family Medicine 07/26/15 documented as of this encounter
--- OUTSIDE RECORDS SUMMARY | 2025-05-07 19:19 | XMS_ITS | Encounter Summary ---
Author Organization [employer] Address 75 [facility] 7t [place] [address] Care Team Providers Care Materials Handling Equipment Operator Name Role Phone Name, Jayjay JUAREZ Primary Care Provider [phone] Reason for Visit * Reason Comments Med Refill Encounter Details Date Type Department Care Team ([facility] st Contact Info) Description 02/18/2024 Refill [facility] MEDICINE 230 [place], [place] [phone] Name, MD Jayjay 230 [place] [address] Chronic pain syndrome Social History Tobacco Use [...] Description 06/12/2025 11:00 AM EST Office Visit [address] [address] Name, MD Jayjay [address] [place] [address] 06/20/2025 10:00 AM EST Office Visit [facility] CHC ADULT DENTAL [address] [place] [address] Joya Zaragoza DDS [address] [place] [address] 08/08/2025 10:00 AM EST Clinical Support [address] [address] Charisse Crisostomo, LISA documented as of this [...] documented as of this encounter Care Teams Materials Handling Equipment Operator Relationship Specialty Start Date End Date Name, MD Jayjay 230 [place] [address] PCP - General Family Medicine 07/26/15 documented as of this encounter
--- OUTSIDE RECORDS SUMMARY | 2025-05-07 19:19 | XMS_ITS | Encounter Summary ---
Author Organization [employer] Address 75 [facility] 7t [place] [address] Care Team Providers Care Commutator V Ring Assembler Name Role Phone Name, Jayjay JUAREZ Primary Care Provider [phone] Reason for Visit * Reason Comments Med Refill Encounter Details Date Type Department Care Team ([facility] st Contact Info) Description 02/02/2024 Refill [facility] MEDICINE 230 [place], [place] [phone] Name, MD Jayjay 230 [place] [address] Chronic thoracic back pain, unspecified back pain [...] Description 06/12/2025 11:00 AM EST Office Visit [facility] MEDICINE [address] [place] [address] Name, MD Jayjay [address] [place] [address] 06/20/2025 10:00 AM EST Office Visit [facility] CHC ADULT DENTAL [address] [place] [address] Joya Zaragoza DDS [address] [place] [address] 08/08/2025 10:00 AM EST Clinical Support [address] [address] Charisse Crisostomo, RN documented as of this [...] documented as of this encounter Care Teams Commutator V Ring Assembler Relationship Specialty Start Date End Date Name, MD Jayjay 230 [place] [address] PCP - General Family Medicine 07/26/15 documented as of this encounter
--- OUTSIDE RECORDS SUMMARY | 2025-05-07 19:19 | XMS_ITS | Encounter Summary ---
Author Organization [employer] Address [address] [place] [address] 7 [place] [address] Care Team Providers Care Conduit Reamer Operator Name Role Phone Name, Jayjay JUAREZ Primary Care Provider [phone] Reason for Visit * Reason Comments Med Refill Encounter Details Date Type Department Care Team (Late st Contact Info) Description 02/25/2023 Refill [facility] MEDICINE [address] [place] [phone] [facility] 230 [place] [address] Chronic pain syndrome Social History Tobacco Use [...] 11:00 AM EST Office Visit [facility] MEDICINE [address] [place] [phone] Name, MD Jayjay 230 [place] [address] 06/20/2025 10:00 AM EST Office Visit [facility] CHC ADULT DENTAL [address] [place] [address] Joya Zaragoza DDS 230 [place] [address] 08/08/2025 10:00 AM EST Clinical Support [facility] MEDICINE 230 [place] [address] Charisse Crisostomo, LISA documented as of this encounter Visit Diagnoses Diagnosis Chronic pain syndrome documented in this encounter Additional Health Concerns Assessment Noted Time PHQ-9 Depression Total Score: 13 023 10:12 AM EDT documented as of this encounter Care Teams Conduit Reamer Operator Relationship Specialty Start Date End Date Name, MD Jayjay [address] [place] [address] PCP - General Family Medicine 07/26/15 documented as of this encounter
--- OUTSIDE RECORDS SUMMARY | 2025-05-07 19:19 | XMS_ITS | Encounter Summary ---
Author Organization [employer] Address [address] [facility] [address] 7t [place] [address] Care Team Providers Care On Site Soil Evaluator Name Role Phone Name, Jayjay JUAREZ Primary Care Provider Reason for Visit * Reason Comments Med Refill Encounter Details Date Type Department Care Team ([facility] st Contact Info) Description 03/21/2024 Refill [facility] MED [facility] PEDS [address] [place] [address] Kayce Castillo MD 230 [place] [address] Chronic thoracic back pain, unspecified back pain [...] the past 12 months, has t he [employer], gas, oil or water company threatened to [...] Description 06/12/2025 11:00 AM EST Office Visit [facility] MEDICINE [address] [place] [address] Name, MD Jayjay [address] [place] [address] 06/20/2025 10:00 AM EST Office Visit [facility] CHC ADULT DENTAL [address] [place] [address] Joya Zaragoza DDS [address] [place] [address] 08/08/2025 10:00 AM EST Clinical Support [address] [address] Charisse Crisostomo, RN documented as of this [...] documented as of this encounter Care Teams On Site Soil Evaluator Relationship Specialty Start Date End Date Name, MD Jayjay [address] [place] [address] PCP - General Family Medicine 07/26/15 documented as of this encounter
--- OUTSIDE RECORDS SUMMARY | 2025-05-07 19:19 | XMS_ITS | Encounter Summary ---
Author Organization [employer] Address [address] [facility] [address] 7t [place] [address] Care Team Providers Care Appliance Installer Name Role Phone Name, Jayjay JUAREZ Primary Care Provider [phone] Reason for Visit * Reason Comments Med Refill Encounter Details Date Type Department Care Team ([facility] st Contact Info) Description 12/02/2023 Refill [facility] MEDICINE 230 [place], [place] [phone] Name, MD Jayjay 230 [place] [address] Chronic pain syndrome; Chronic thoracic back pain, [...] is your housing situation today? I have janebob horn 05/03/[address] you [...] 06/12/2025 11:00 AM EST Office Visit [address] [address] Name, MD Jayjay [address] [place] [address] 06/20/2025 10:00 AM EST Office Visit [facility] CHC ADULT DENTAL [address] [place] [address] Joya Zaragoza DDS [address] [place] [address] 08/08/2025 10:00 AM EST Clinical Support [address] [address] Charisse Crisostomo, LISA documented as of this [...] Noted Time PHQ-9 Depression Total Score: 6 03/18/20 24 9:51 AM EDT documented as of this encounter Care Teams Appliance Installer Relationship Specialty Start Date End Date Name, MD Jayjay 230 [place] [address] PCP - General Family Medicine 07/26/15 documented as of this encounter
--- OUTSIDE RECORDS SUMMARY | 2025-05-07 19:19 | XMS_ITS | Encounter Summary ---
Author Organization [employer] Address 75 [facility] 7 [place] [address] Care Team Providers Care Parts Product Analyst Name Role Phone Name, Jayjay JUAREZ Primary Care Provider [phone] Reason for Visit * Reason Onset Date Comments Med Refill 03/10/2024 Encounter Details Date Type Department Care Team (Late st Contact Info) Description 03/10/2024 Refill [facility] MEDICINE [address], [place] [phone] Name, MD Jayjay 230 [place] [address] Chronic pain syndrome Social History Tobacco Use [...] Description 06/12/2025 11:00 AM EST Office Visit [address] [address] Name, MD Jayjay [address] [place] [address] 06/20/2025 10:00 AM EST Office Visit [facility] CHC ADULT DENTAL [address] [place] [address] Joya Zaragoza DDS [address] [place] [address] 08/08/2025 10:00 AM EST Clinical Support [address] [address] Charisse Crisostomo, RN documented as of this [...] documented as of this encounter Care Teams Parts Product Analyst Relationship Specialty Start Date End Date Name, MD Jayjay 230 [place] [address] PCP - General Family Medicine 07/26/15 documented as of this encounter
--- OUTSIDE RECORDS SUMMARY | 2025-05-07 19:19 | XMS_ITS | Clinical Summary ---
Author Organization [facility] Address [address] [place] [address] Care Team Providers Care Tail Trimmer Name Role Phone Name, Jayjay JUAREZ Primary Care Provider [phone] Surgical History Surgery Date Site/Laterality Comments TURP [...] Health Maintenance Due Date Last Done Comments Colorectal Cancer Screening: Colonoscopy 1958 Diabetes: Annual GFR (Glomerular Filtration Rate) 1958 Diabetes: Annual Foot Exam 02/06/1968 Diabetes: Annual Retina Eye Exam 02/06/1968 Zoster Vaccines (1 of 2) 02/06/2008 Pneumococcal Vaccine: 50+ Years (2 of 2 - PCV) 04/10/2011 04/10/2010 DTaP,Tdap,and Td Vaccines (2 - Td or Tdap) 03/19/2021 03/19/2011 Abdominal Aortic Aneurysm (AAA) Screen 06/21/2022 Cholesterol Screening (Lipid Panel) 06/21/2022 Hepatitis C Screening 06/21/2022 Social Influencers of Health Screening 06/21/2022 Diabetes: Annual Urine Albumin-Creatinine Ratio (uACR) 06/26/2022 Diabetes: Blood Sugar Control Test (HGBA1C) 06/26/2022 Hypertension/CHF/CAD Annual BMP Blood Test 06/26/2022 Falls Risk Assessment 2023 Depression Screening 07/12/2024 COVID-19 Vaccine ( - season) 2025 Influenza Vaccine (#1) 2025 5, 06/12/2014, 04/18/2013, [...] age to complete this topic Care Teams Tail Trimmer Relationship Specialty Start Date End Date Name, MD Jayjay [address] [place], [place] PCP - General Internal Medicine 05/13/21
--- OUTSIDE RECORDS SUMMARY | 2025-05-07 19:19 | XMS_ITS | Encounter Summary ---
Author Organization [employer] Address 75 [facility] 7t [place] [address] Care Team Providers Care Loading Manager Name Role Phone Name, Jayjay JUAREZ Primary Care Provider [phone] Reason for Visit * Reason Comments Med Refill Encounter Details Date Type Department Care Team ([facility] st Contact Info) Description 11/13/2024 Refill [facility] MEDICINE 230 [place], [place] [phone] Rylee Forrester, LUIS 230 [place], [place] [phone] Chronic pain syndrome Social History Tobacco Use [...] 06/12/2025 11:00 AM EST Office Visit [address] [address] Name, MD Jayjay [address] [place] [address] 06/20/2025 10:00 AM EST Office Visit [facility] CHC ADULT DENTAL [address] [place] [address] Joya Zaragoza DDS [address] [place] [address] 08/08/2025 10:00 AM EST Clinical Support [address] [address] Charisse Crisostomo, RN documented as of this [...] documented as of this encounter Care Teams Loading Manager Relationship Specialty Start Date End Date Name, MD Jajyay 230 [place] [address] PCP - General Family Medicine 07/26/15 documented as of this encounter
--- OUTSIDE RECORDS SUMMARY | 2025-05-07 19:20 | XMS_ITS | Encounter Summary ---
Author Organization [employer] Address 75 [facility] 7t [place] [address] Care Team Providers Care Office Employee Name Role Phone Name, Jayjay JUAREZ Primary Care Provider [phone] Reason for Visit * Reason Onset Date Comments Med Refill 12/06/2024 Encounter Details Date Type Department Care Team ([facility] st Contact Info) Description 12/06/2024 Telephone [facility] MEDICINE 230 [place], [place] [phone] Name, MD Jayjay 230 [place] [address] Med Refill Social History Tobacco Use Types [...] encounter Miscellaneous Notes * Telephone Encounter - Pierre Stevenson - 12/06/2024 1:18 PM EDT TC from pt requesting medication refill. Medications needing refill : naloxone (Narcan) 4 mg/0.1 mL nasal spray [facility] [address] documented in this encounter Plan of Treatment Upcoming Encounters Date Type Department Care Team (Late st Contact Info) Description 06/12/2025 11:00 AM EST Office Visit [facility] MEDICINE 230 [place] [address] Name, MD Jayjay 230 [place] [address] 06/20/2025 10:00 AM EST Office Visit [facility] CHC ADULT DENTAL [address] [place] [address] Joya Zaragoza DDS 230 [place] [address] 08/08/2025 10:00 AM EST Clinical Support [facility] MEDICINE [address] [place] [address] Charisse Crisostomo, RN documented as of this [...] documented as of this encounter Care Teams Office Employee Relationship Specialty Start Date End Date Name, MD Jayjay 230 [place] [address] PCP - General Family Medicine 07/26/15 documented as of this encounter
--- OUTSIDE RECORDS SUMMARY | 2025-05-07 19:20 | XMS_ITS | Encounter Summary ---
Author Organization [employer] Address 75 [facility] 7t [place] [address] Care Team Providers Care Clinical Data Management Director Name Role Phone Name, Jayjay JUAREZ Primary Care Provider [phone] Reason for Visit * Reason Comments Med Refill Encounter Details Date Type Department Care Team ([facility] st Contact Info) Description 12/12/2024 Refill [facility] 230 [place] [address] Name, MD Jayjay [address] [place] [address] Chronic left-sided thoracic back pain; Chronic thoracic back pain, unspecified back pain laterality; Chronic pain syndrome [...] 06/12/2025 11:00 AM EST Office Visit [address] [address] Name, MD Jayjay [address] [place] [address] 06/20/2025 10:00 AM EST Office Visit [facility]AL 505 [place] [address] Joya Zaragoza DDS [address] [place] [address] 08/08/2025 10:00 AM EST Clinical Support [address] [address] Charisse Crisostomo, RN documented as of this [...] documented as of this encounter Care Teams Clinical Data Management Director Relationship Specialty Start Date End Date Name, MD Jayjay [address] [place] [address] PCP - General Family Medicine 07/26/15 documented as of this encounter
--- OUTSIDE RECORDS SUMMARY | 2025-05-07 19:20 | XMS_ITS | Encounter Summary ---
Author Organization [employer] Address 75 [facility] 7 [place] [address] Care Team Providers Care Pickup Driver Name Role Phone Name, Jayjay JUAREZ Primary Care Provider [phone] Reason for Visit * Reason Onset Date Comments Med Refill 07/25/2024 Encounter Details Date Type Department Care Team (Late st Contact Info) Description 07/25/2024 Refill [facility] 230 [place], [place] [phone] Rylee Forrester NP 230 [place] [address] Benign paroxysmal positional vertigo, unspecified laterality Social History Tobacco Use Types Packs/Day [...] the past 12 months, has t he [employer], gas, oil or water company threatened to [...] 06/12/2025 11:00 AM EST Office Visit [facility] [address] [place] [address] Name, MD Jayjay [address] [place] [address] 06/20/2025 10:00 AM EST Office Visit [facility] CH[facility] ADULT DENTAL [address] [place] [address] Joya Zaragoza DDS [address] [place] [address] 08/08/2025 10:00 AM EST Clinical Support [address] [address] Charisse Crisostomo, RN documented as of this encounter Goals Goal Patient Goal Type Associated Problems Recent Progress Patient-Stated? Author Blood Pressure < 140/90 Blood Pressure 140/80(10/22/ 2025 8:55 AM EDT) No Heriberto Arellano Hemoglobin A1c < 7 Result Component 6.7( 5 11:02 AM EDT) No Heriberto Arellano documented as of this encounter Visit Diagnoses Diagnosis Benign paroxysmal positional vertigo, unspecified laterality documented in this encounter Additional Health Concerns Assessment Noted Time PHQ-9 Depression Total Score: 6 09/27/19 24 9:51 AM EDT documented as of this encounter Care Teams Pickup Driver Relationship Specialty Start Date End Date Name, MD Jayjay [address] [place] [address] PCP - General Family Medicine 07/26/15 documented as of this encounter
--- OUTSIDE RECORDS SUMMARY | 2025-05-07 19:20 | XMS_ITS | Encounter Summary ---
Author Organization [employer] Address 75 [facility] 7t [place] [address] Care Team Providers Care Engine Test Cell Technician Name Role Phone Name, Jayjay JUAREZ Primary Care Provider [phone] Reason for Visit * Reason Comments Med Refill Encounter Details Date Type Department Care Team ([facility] st Contact Info) Description 09/08/2024 Refill [facility] 230 [place], [place] [phone] Name, MD Jayjay 230 [place] [address] Chronic thoracic back pain, unspecified back pain [...] EST Office Visit [facility] [address] [place] [address] Name, MD Jayjay [address] [place] [address] 06/20/2025 10:00 AM EST Office Visit [facility] [address] [place] [address] Joya Zaragoza DDS [address] [place] [address] 08/08/2025 10:00 AM EST Clinical Support [address] [address] Charisse Crisostomo, RN documented as of this [...] documented as of this encounter Care Teams Engine Test Cell Technician Relationship Specialty Start Date End Date Name, MD Jayjay 230 [place] [address] PCP - General Family Medicine 07/26/15 documented as of this encounter
--- OUTSIDE RECORDS SUMMARY | 2025-05-07 19:20 | XMS_ITS | Encounter Summary ---
Author Organization [employer] Address 75 [facility] 7t [place] [address] Care Team Providers Care Stretching Press Operator Name Role Phone Name, Jayjay JUAREZ Primary Care Provider [phone] Reason for Visit * Reason Comments Med Refill Encounter Details Date Type Department Care Team ([facility] st Contact Info) Description 06/05/2024 Refill [facility] 230 [place], [place] [phone] Name, MD Jayjay 230 [place] [address] Chronic back pain, unspecified back location, unspecified back pain laterality; Type 2 diabetes mellitus with hyperglycemia, without long-term current use of insulin (CMS/[facility]); Chronic pain syndrome; Chronic thoracic back pain, [...] 06/12/2025 11:00 AM EST Office Visit [address] [address] Name, MD Jayjay [address] [place] [address] 06/20/2025 10:00 AM EST Office Visit [facility] ADULT DENTAL [address] [place] [address] Joya Zaragoza DDS [address] [place] [address] 08/08/2025 10:00 AM EST Clinical Support [address] [address] Charisse Crisostomo, RN documented as of this encounter Goals Goal Patient Goal Type Associated Problems Recent Progress Patient-Stated? Author Blood Pressure < 140/90 Blood Pressure 140/80(2024 8:55 AM EDT) No Heriberto Arellano Hemoglobin A1c < 7 Result Component 6.7( 11:02 AM EDT) No Heriberto Arellano documented as of this encounter Visit Diagnoses Diagnosis Chronic back pain, unspecified back location, unspecified back pain laterality Type 2 diabetes mellitus with hyperglycemia, without long-term current use of insulin (HCC) Chronic pain syndrome Chronic thoracic back pain, unspecified back pain laterality documented in this encounter Additional Health Concerns Assessment Noted Time PHQ-9 Depression Total Score: 6 09/27/19 24 9:51 AM EDT documented as of this encounter Care Teams Stretching Press Operator Relationship Specialty Start Date End Date Name, MD Jayjay 230 [place] [address] PCP - General Family Medicine 07/26/15 documented as of this encounter
--- OUTSIDE RECORDS SUMMARY | 2025-05-07 19:20 | XMS_ITS | Encounter Summary ---
Author Organization [employer] Address 75 [facility] 7t [place] [address] Care Team Providers Care Operational Assistant Name Role Phone Name, Jayjay JUAREZ Primary Care Provider [phone] Reason for Visit * Reason Comments Med Refill Encounter Details Date Type Department Care Team ([facility] st Contact Info) Description 05/30/2024 Refill [facility] 230 [place], [place] [phone] Name, MD Jayjay 230 [place] [address] Chronic pain syndrome Social History Tobacco Use [...] Description 06/12/2025 11:00 AM EST Office Visit [address] [address] Name, MD Jayjay [address] [place] [address] 06/20/2025 10:00 AM EST Office Visit [facility] ADULT D[facility]AL [address] [place] [address] Joya Zaragoza DDS [address] [place] [address] 08/08/2025 10:00 AM EST Clinical Support [address] [address] Charisse Crisostomo, RN documented as of this [...] documented as of this encounter Care Teams Operational Assistant Relationship Specialty Start Date End Date Name, MD Jayjay 230 [place] [address] PCP - General Family Medicine 07/26/15 documented as of this encounter
--- OUTSIDE RECORDS SUMMARY | 2025-05-07 19:20 | XMS_ITS | Encounter Summary ---
Author Organization [employer] Address 75 [facility] 7t [place] [address] Care Team Providers Care Assistant Director Of Residence Life Name Role Phone Name, Jayjay JUAREZ Primary Care Provider [phone] Reason for Visit * Reason Comments Med Refill Encounter Details Date Type Department Care Team ([facility] st Contact Info) Description 06/05/[address] [facility] MEDICINE 230 [place], [place] [phone] Name, MD Jayjay 230 [place] [address] Chronic thoracic back pain, unspecified back pain laterality; Type 2 diabetes mellitus with hyperglycemia, without long-term current use of insulin (CMS/[facility]); Chronic back pain, unspecified back location, unspecified [...] Description 06/12/2025 11:00 AM EST Office Visit [address] [address] Name, MD Jayjay [address] [place] [address] 06/20/2025 10:00 AM EST Office Visit [facility] CH[facility] ADULT DENTAL [address] [place] [address] Joya Zaragoza DDS [address] [place] [address] 08/08/2025 10:00 AM EST Clinical Support [address] [address] Charisse Crisostomo, RN documented as of this encounter Goals Goal Patient Goal Type Associated Problems Recent Progress Patient-Stated? Author Blood Pressure < 140/90 Blood Pressure 140/80(2024 8:55 AM EDT) No Heriberto Arellano Hemoglobin A1c < 7 Result Component 6.7( 11:02 AM EDT) No Heriberto Arellano documented as of this encounter Visit Diagnoses Diagnosis Chronic thoracic back pain, unspecified back pain laterality Type 2 diabetes mellitus with hyperglycemia, without long-term current use of insulin (HCC) Chronic back pain, unspecified back location, unspecified back pain laterality Chronic pain syndrome documented in this encounter Additional Health Concerns Assessment Noted Time PHQ-9 Depression Total Score: 6 09/27/19 24 9:51 AM EDT documented as of this encounter Care Teams Assistant Director Of Residence Life Relationship Specialty Start Date End Date Name, MD Jayjay 230 [place] [address] PCP - General Family Medicine 07/26/15 documented as of this encounter
--- OUTSIDE RECORDS SUMMARY | 2025-05-07 19:20 | XMS_ITS | Encounter Summary ---
Author Organization [employer] Address 75 [facility] 7t [place] [address] Care Team Providers Care Residential Counselor Name Role Phone Name, Jayjay JUAREZ Primary Care Provider [phone] Reason for Visit * Reason Comments Med Refill Encounter Details Date Type Department Care Team ([facility] st Contact Info) Description 06/23/2024 Refill [facility] MED[facility]INE 230 [place], [place] [phone] Name, MD Jayjay 230 [place] [address] Chronic pain syndrome Social History Tobacco Use [...] Description 06/12/2025 11:00 AM EST Office Visit [address] [address] Name, MD Jayjay [address] [place] [address] 06/20/2025 10:00 AM EST Office Visit [facility] CH[facility] ADULT DENTAL [address] [place] [address] Joya Zaragoza DDS [address] [place] [address] 08/08/2025 10:00 AM EST Clinical Support [address] [address] Charisse Crisostomo, RN documented as of this [...] documented as of this encounter Care Teams Residential Counselor Relationship Specialty Start Date End Date Name, MD Jayjay 230 [place] [address] PCP - General Family Medicine 07/26/15 documented as of this encounter
--- OUTSIDE RECORDS SUMMARY | 2025-05-07 19:20 | XMS_ITS | Encounter Summary ---
Author Organization [employer] Address 75 [facility] 7t [place] [address] Care Team Providers Care Flute Grinder Name Role Phone Name, Jayjay JUAREZ Primary Care Provider [phone] Reason for Visit * Reason Comments Med Refill Encounter Details Date Type Department Care Team ([facility] st Contact Info) Description 06/09/2024 Refill [facility] 230 [place], [place] [phone] Name, MD Jayjay 230 [place] [address] Chronic back pain, unspecified back location, unspecified back pain laterality; Type 2 diabetes mellitus with hyperglycemia, without long-term current use of insulin (CMS/[facility]); Chronic pain syndrome; Chronic thoracic back pain, [...] 06/12/2025 11:00 AM EST Office Visit [address] [address] Name, MD Jayjay [address] [place] [address] 06/20/2025 10:00 AM EST Office Visit [facility] ADULT DENTAL [address] [place] [address] Joya Zaragoza DDS [address] [place] [address] 08/08/2025 10:00 AM EST Clinical Support [address] [address] Charisse Crisostomo, RN documented as of this [...] documented as of this encounter Care Teams Flute Grinder Relationship Specialty Start Date End Date Name, MD Jayjay 230 [place] [address] PCP - General Family Medicine 07/26/15 documented as of this encounter
--- OUTSIDE RECORDS SUMMARY | 2025-05-07 19:20 | XMS_ITS | Encounter Summary ---
Author Organization [employer] Address [address] [facility] [address] 7t [place] [address] Care Team Providers Care Title Department Manager Name Role Phone Name, Jayjay JUAREZ Primary Care Provider [phone] Encounter Details Date Type Department Care Team ([facility] st Contact Info) Description 09/06/2024 Telephone [facility] MED[facility]INE 230 [place], [place] [phone] Name, MD Jayjay 230 [place] [address] Social History Tobacco Use Types Packs/Day Years [...] 11:00 AM EST Office Visit [facility] MED[facility]INE [address] [place] [address] Name, MD Jayjay [address] [place] [address] 06/20/2025 10:00 AM EST Office Visit [facility] ADULT DENTAL [address] [place] [address] Joya Zaragoza DDS [address] [place] [address] 08/08/2025 10:00 AM EST Clinical Support [address] [address] Charisse Crisostomo, LISA documented as of this [...] documented as of this encounter Care Teams Title Department Manager Relationship Specialty Start Date End Date Name, MD Jayjay 230 [place] [address] PCP - General Family Medicine 07/26/15 documented as of this encounter
--- OUTSIDE RECORDS SUMMARY | 2025-05-07 19:20 | XMS_ITS | Continuity of Care Document ---
Author Name Randall Clifford Address [address] [place] [address] Organization Unknown Address [address] [place] [address] Medications No known medications Problems No known problems
--- OUTSIDE RECORDS SUMMARY | 2025-05-07 19:20 | XMS_ITS | Encounter Summary ---
Author Organization [employer] Address 75 [facility] 7t [place] [address] Care Team Providers Care Unit Aide Name Role Phone Name, Jayjay JUAREZ Primary Care Provider [phone] Reason for Visit * Reason Comments Med Refill Encounter Details Date Type Department Care Team ([facility] st Contact Info) Description 08/02/2024 Refill [facility] 230 [place] [address] Name, MD Jayjay 230 [place] [address] Chronic cough; Chronic pain syndrome; Asthma, unspecified asthma severity, [...] 06/12/2025 11:00 AM EST Office Visit [address] [address] Name, MD Jayjay [address] [place] [address] 06/20/2025 10:00 AM EST Office Visit [facility] ADULT DENTAL 505 [place] [address] Joya Zaragoza DDS [address] [place] [address] 08/08/2025 10:00 AM EST Clinical Support [address] [address] Charisse Crisostomo, RN documented as of this encounter Goals Goal Patient Goal Type Associated Problems Recent Progress Patient-Stated? Author Blood Pressure < 140/90 Blood Pressure 140/80(2024 8:55 AM EDT) No Heriberto Arellano Hemoglobin A1c < 7 Result Component 6.7( 11:02 AM EDT) No Heriberto Arellano documented as of this encounter Visit Diagnoses Diagnosis Chronic cough Cough Chronic pain syndrome Asthma, unspecified asthma severity, unspecified whether complicated, unspecified whether persistent documented in this encounter Additional Health Concerns Assessment Noted Time PHQ-9 Depression Total Score: 6 09/27/19 24 9:51 AM EDT documented as of this encounter Care Teams Unit Aide Relationship Specialty Start Date End Date Name, MD Jayjay 230 [place] [address] PCP - General Family Medicine 07/26/15 documented as of this encounter
--- OUTSIDE RECORDS SUMMARY | 2025-05-07 19:20 | XMS_ITS | Encounter Summary ---
Author Organization [employer] Address 75 [facility] 7t [place] [address] Care Team Providers Care Skirt Trimmer Name Role Phone Name, Jayjay JUAREZ Primary Care Provider [phone] Reason for Visit * Reason Comments Med Refill Encounter Details Date Type Department Care Team ([facility] st Contact Info) Description 05/29/2024 Refill [facility] 230 [place], [place] [phone] Name, MD Jayjay 230 [place] [address] Chronic pain syndrome Social History Tobacco Use [...] Description 06/12/2025 11:00 AM EST Office Visit [address] [address] Name, MD Jayjay [address] [place] [address] 06/20/2025 10:00 AM EST Office Visit [facility] ADULT DENTAL [address] [place] [address] Joya Zaragoza DDS [address] [place] [address] 08/08/2025 10:00 AM EST Clinical Support [address] [address] Charisse Crisostomo, RN documented as of this [...] documented as of this encounter Care Teams Skirt Trimmer Relationship Specialty Start Date End Date Name, MD Jayjay 230 [place] [address] PCP - General Family Medicine 07/26/15 documented as of this encounter
--- OUTSIDE RECORDS SUMMARY | 2025-05-07 19:20 | XMS_ITS | Encounter Summary ---
Author Organization [employer] Address 75 [facility] 7t [place] [address] Care Team Providers Care Dextrine Mixer Name Role Phone Name, Jayjay JUAREZ Primary Care Provider [phone] Reason for Visit * Reason Comments Med Refill Encounter Details Date Type Department Care Team ([facility] st Contact Info) Description 05/11/2024 Refill [facility] 230 [place], [place] [phone] Name, MD Jayjay 230 [place] [address] Chronic pain syndrome; Chronic back pain, unspecified back location, unspecified back pain laterality; Chronic left-sided thoracic back pain; Chronic thoracic [...] Description 06/12/2025 11:00 AM EST Office Visit [address] [address] Name, MD Jayjay [address] [place] [address] 06/20/2025 10:00 AM EST Office Visit [facility] ADULT DENTAL [address] [place] [address] Joya Zaragoza DDS [address] [place] [address] 08/08/2025 10:00 AM EST Clinical Support [address] [address] Charisse Crisostomo, LISA documented as of this [...] documented as of this encounter Care Teams Dextrine Mixer Relationship Specialty Start Date End Date Name, MD Jayjay [address] [place] [address] PCP - General Family Medicine 07/26/15 documented as of this encounter
--- OUTSIDE RECORDS SUMMARY | 2025-05-07 19:20 | XMS_ITS | Encounter Summary ---
Author Organization [email or web address] Address 75 [facility] 7t [place] [address] Care Team Providers Care Counter Top Maker Name Role Phone Name, Jayjay JUAREZ Primary Care Provider [phone] Reason for Visit * Reason Comments Med Refill Encounter Details Date Type Department Care Team ([facility] st Contact Info) Description 05/30/[address] [facility] MEDICINE 230 [place], [place] [phone] Name, MD Jayjay 230 [place] [address] Chronic pain syndrome Social History Tobacco Use [...] 06/12/2025 11:00 AM EST Office Visit [address] [address] Name, MD Jayjay [address] [place] [address] 06/20/2025 10:00 AM EST Office [facility] CH[facility] ADULT DENTAL [address] [place] [address] Joya Zaragoza DDS [address] [place] [address] 08/08/2025 10:00 AM EST Clinical Support [address] [address] Charisse Crisostomo, RN documented as of this [...] documented as of this encounter Care Teams Counter Top Maker Relationship Specialty Start Date End Date Name, MD Jayjay 230 [place] [address] PCP - General Family Medicine 07/26/15 documented as of this encounter
--- OUTSIDE RECORDS SUMMARY | 2025-05-07 19:20 | XMS_ITS | Clinical Summary ---
Author Organization [employer] Address [address] [place] [address] [address] [place] [address] Care Team Providers Care Product Marketing Engineer Name Role Phone Name, Jayjay JUAREZ Primary Care Provider [phone] Allergies Active Allergy Reactions Criticality Noted Date Comments Lactose Intolerance (Gi) 05/13/2023 Medications DULoxetine (Cymbalta) [address] capsule 60 in the AM and 30 at night Active Spacer/Aero-Ho lding Chambers ([facility]) miscIndication s:Chronic cough 1 each every 4 (four) hours if needed (asthma). 1 each 08/05/19 23 Active Additional Information Patient not taking.Reported on 03/22/2025 Diclofenac Sodium 1 % gel Apply once a day to the affected area 50 g 1 10/07/19 23 Active Blood Glucose Monitoring Suppl ([employer] Verio) w/Device kit USE TO TEST BLOOD SUGAR THREE TIMES DAILY 1 kit 04/09/20 23 Active DULoxetine (Cymbalta) [address] capsule Take one capsule by mouth once in the morning 05/10/20 23 Active clonazePAM (KlonoPIN) 1 MG tablet Take 1 tablet by mouth once daily as needed 05/10/20 23 Active traZODone (Desyrel) 50 MG tablet Take 1 tablet by mouth nightly 05/10/20 23 Active glucose blood (FREESTYLE LITE) test stripIndicatio ns:Type 2 diabetes mellitus with hyperglycemia, without long-term current use of insulin ([facility]) CHECK BLOOD SUGAR FOUR TIMES DAILY 100 strip 11 06/25/20 23 Active fluticasone (Flonase) 50 MCG/ACT nasal spray Administer 2 sprays into each nostril in the morning. Shake gently. Before first use, prime pump. After use, clean tip and replace cap. 16 g 2 09/27/19 24 Active Additional Information Patient not taking.Reported on 03/22/2025 glucose blood test stripIndicatio ns:Type 2 diabetes mellitus with hyperglycemia, without long-term current use of insulin ([facility]) USE TO TEST BLOOD SUGAR THREE TIMES A DAY 100 each 11 06/12/20 24 Active ASPIRIN 81 MG chewable tablet Chew 81 mg Once per day. 06/18/20 15 Active ARIPiprazole (Abilify) 2 MG tablet 2 mg. 05/29/20 24 Active carboxymethylc ellulose (Refresh Plus) 0.5 % ophthalmic solution 05/29/20 24 Active hydroCHLOROthi azide (HYDRODiuril) 25 MG tablet Take 25 mg by mouth Once per day. 04/18/20 15 Active loratadine (Claritin) 10 MG tablet Take 10 mg by mouth Once per day. 06/18/20 15 Active omeprazole (PriLOSEC) [address] capsule TAKE ONE CAPSULE BY MOUTH EVERY DAY ^1R1 30 capsule 08/08/19 25 Active dilTIAZem CD (Cardizem CD) 240 MG 24 hr capsule TAKE ONE CAPSULE BY MOUTH EVERY DAY ^1R1 30 capsule 08/08/19 25 Active chlorthalidone (Hygroton) 25 MG tablet TAKE ONE TABLET BY MOUTH EVERY DAY ^1R1 30 tablet 08/08/19 25 Active enalapril (Vasotec) 20 MG tablet TAKE ONE TABLET BY MOUTH TWICE A DAY 180 tablet 08/15/19 25 Active FreeStyle lancetsIndicat ions:Chronic cough,Chronic pain syndrome 1 each by Other route 4 times daily. USE TO TEST BLOOD SUGAR FOUR TIMES A DAY 100 each 08/15/19 25 Active metoprolol succinate XL (Toprol-XL) 100 MG 24 hr tablet TAKE ONE TABLET BY MOUTH EVERY DAY 90 tablet 08/15/19 25 Active metFORMIN (Glucophage) 500 MG tablet TAKE ONE TABLET BY MOUTH TWICE A DAY WITH MEALS 180 tablet 08/15/19 25 Active levothyroxine (Synthroid, Levoxyl) 100 MCG tablet TAKE ONE TABLET BY MOUTH EVERY DAY ^1R1 30 tablet 08/22/19 25 Active Ozempic, 1 MG/DOSE, 4 MG/3ML solution pen-injector INJECT 1MG UNDER THE SKIN ONCE WEEKLY (BULK) 6 mL 12/30/19 25 Active albuterol (2.5 MG/3ML) 0.083% nebulizer solution INHALE 1 VIAL (3ML) VIA NEBULIZER EVERY 6 HOURS NEEDED FOR SHORTNESS OF BREATH OR WHEEZING (BULK) 90 mL 01/06/20 25 Active Additional Information Patient not taking.Reported on 03/22/2025 lidocaine (Lidoderm) 5 % patchIndicatio ns:Chronic left-sided thoracic back pain APPLY ONE PATCH TOPICALLY IN THE MORNING (BULK) 30 patch 01/06/20 25 Active naloxone (Narcan) 4 mg/0.1 mL nasal sprayIndicatio ns:Chronic pain syndrome USE 1 SPRAY IN ONE NOSTRIL A SINGLE DOSE. MAY REPEAT DOSE EVERY 2 TO 3 MINUTES IN ALTERNATING NOSTRILS WHEN EMERGENCY MEDICAL ASSISTANCE BECOMES AVAILABLE. (BULK) 2 each 3 02/24/20 25 Active pregabalin (Lyrica) 150 MG capsuleIndicat ions:Type 2 diabetes mellitus with hyperglycemia, without long-term current use of insulin (HCC) TAKE ONE CAPSULE BY MOUTH THREE TIMES A DAY (VIAL) 90 capsule 03/26/20 25 Active albuterol (Ventolin HFA) 108 (90 Base) MCG/ACT inhalerIndicat ions:Asthma, unspecified asthma severity, unspecified whether complicated, unspecified whether persistent INHALE ONE PUFF BY MOUTH EVERY MORNING , AT NOON AND AT BEDTIME. INHALE TWO PUFFS BY MOUTH EVERY 4 TO 6 HOURS NEEDED FOR SHORTNESS OF BREATH OR WHEEZING (BULK) 18 g 3 03/26/20 25 Active oxyCODONE-acet aminophen (Percocet) 5-325 MG tabletIndicati ons:Lumbar radiculopathy, Chronic left-sided thoracic back pain Take 1 tablet by mouth every 8 (eight) hours if needed for severe pain for up to 28 days. Do not start before April 17, 2025. 84 tablet 04/17/20 25 025 Active atorvastatin (Lipitor) 40 MG tablet TAKE ONE TABLET BY MOUTH EVERY MORNING ^1R1 30 tablet 11 04/23/20 25 Active methocarbamol (Robaxin) 500 MG tablet TAKE ONE TABLET BY MOUTH EVERY 8 HOURS (VIAL) 90 tablet 04/23/20 25 Active naproxen (Naprosyn) 500 MG tabletIndicati ons:Chronic pain syndrome TAKE ONE TABLET BY MOUTH TWICE A DAY WITH FOOD 56 tablet 04/23/20 Active Symbicort 80-4.5 MCG/ACT inhaler Rinse mouth with water after use to reduce aftertaste and incidence of candidiasis. Do not swallow.INHALE TWO PUFFS BY MOUTH EVERY MORNING & AT BEDTIME. RINSE MOUTH WITH WATER AFTER USE TO REDUCE AFTER TASTE AN 10.2 g 11 04/23/20 Active amoxicillin (Amoxil) 500 MG capsule Take 1 capsule (500 mg) by mouth every 8 (eight) hours for 7 days. 21 capsule 05/02/20 025 Active atorvastatin (Lipitor) 40 MG tablet TAKE ONE TABLET BY MOUTH EVERY MORNING ^1R1 30 tablet 11 05/16/20 025 Discontinued(R eorder (will not trigger notification to Pharmacy)) Symbicort 80-4.5 MCG/ACT inhaler INHALE TWO PUFFS BY MOUTH EVERY MORNING & AT BEDTIME. RINSE MOUTH WITH WATER AFTER USE TO REDUCE AFTER TASTE AND INCIDENCE OF CANDIDIASIS. DO NOT SWALLOW. (BULK) 10.2 g 11 05/16/20 025 Discontinued(R eorder (will not trigger notification to Pharmacy)) oxyCODONE-acet aminophen (Percocet) 5-325 MG tabletIndicati ons:Lumbar radiculopathy, Chronic left-sided thoracic back pain TAKE ONE TABLET BY MOUTH EVERY 8 HOURS NEEDED FOR SEVERE PAIN UP TO 28 DAYS (VIAL) DNF 02/19 84 tablet 03/19/20 025 Discontinued(R eorder (will not trigger notification to Pharmacy)) naproxen (Naprosyn) 500 MG tabletIndicati ons:Chronic pain syndrome TAKE ONE TABLET BY MOUTH TWICE A DAY WITH FOOD 56 tablet 03/26/20 025 Discontinued(R eorder (will not trigger notification to Pharmacy)) methocarbamol (Robaxin) 500 MG tablet TAKE ONE TABLET BY MOUTH EVERY 8 HOURS (VIAL) 90 tablet 03/26/20 025 Discontinued(R eorder (will not trigger notification to Pharmacy)) Active Problems Problem Noted Date Diagnosed Date Long-term current use of opiate analgesic 2024 Type 2 diabetes mellitus wit h hyperglycemia, without long-term current use of insulin 07/19/2024 Assessment & Plan (07/19/2024 11:01 AM EST): A1c today almost at goal: 7.3 Continue with current medication regimen Treatment Goals: A1c goal: <7% FBG goal: <130 2 hour post prandial goal: <180 Dietary Recommendations: Fruits, vegetables, whole grains, protein foods, and fat-free or low-fat dairy products are healthy choices. Eat different types of protein foods in your diet. This can include seafood, lean meats, poultry, beans, peas, lentils, nuts, seeds, soy products, and eggs. Limit foods and beverages higher in added sugars, saturated fat, and sodium. Asthma 06/25/2023 Chronic left-sided thoracic back pain 05/13/2023 Assessment & Plan (05/13/2023 10:48 AM EDT): Apply heat on affected area lidocaine patch to be applied locally C/w rest of pain meds RN as prescribed I will order XRAY and call patient with results Hoarse 12/29/2022 Digital mucinous cyst of finger of right hand Contact with workbench tool 01/20/2021 Deep laceration of finger 01/16/2021 Bleeding external hemorrhoids 06/23/2018 Benign paroxysmal positional vertigo 09/15/2016 Assessment & Plan (07/19/2024 11:44 AM EST): Neuro exam wnl besides end beat horizontal nystagmus noted with [place] hallpike maneuver, nystagmus provoked by [place] Hallpike Maneuver D/t hx of prior dx and normal neuro exam, no indication for head imaging at this time Will send meclizine 25 mg prn for symptom management Information provided to pt regarding Cecile maneuver instructions in paraguayan, informed pt that medication in combination with maneuvers should help with symptoms Lifestyle modifications: salt restriction, limiting caffeine and alcohol Pt may RTC in 2 weeks for f/u if symptoms do not improve or worsen Diabetic polyneuropathy 11/19/2015 Lumbar radiculopathy 08/20/2015 Degeneration of lumbosacral intervertebral disc 08/20/2015 Diabetes mellitus type 2, controlled 02/12/2015 Erectile dysfunction 09/01/2012 GE reflux 09/01/2012 Back pain 02/19/2012 Diabetic neuropathy 07/30/2011 Essential hypertension 03/19/2011 ZUNILDA (obstructive sleep apnea) 03/19/2011 Overview (10/06/2022): On CPAP 11 cmH2O with [employer]. Good compliance Hypothyroid 03/19/2011 DJD (degenerative joint disease) 03/19/2011 Overview (10/06/2022): Low back pain, knee pain and elbow pain Depression 03/19/2011 Fibromyalgia 03/19/2011 Overview (10/06/2022): Patient follows with Dr Aaron Chacko Benign prostatic hyperplasia 03/19/2011 Overview (12/29/2022): Patient had TURP with urology at [facility] Obesity 03/19/2011 Panic attack 03/19/2011 Overview (12/29/2022): Patient follows with Dr Dowling in the [facility] Encounters Date Type Department Care Team Description 05/07/2025 10:00 AM EDT Clinical Support [address] [address] Charisse Crisostomo, RN Long-term current use of opiate analgesic (Primary Dx) 05/07/[address] [address] Charisse Crisostomo, RN 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 Agreement 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; Forgot Percocet; Abnormal UTOX; Percocet count discrepancy 05/07/2025 Travel 05/07/2025 Telephone [facility] [address] [place] [phone] Name, MD Jayjay r/s appt 05/02/2025 9:00 AM EDT Office Visit [facility] [address] [place] [address] Joya Zaragoza DDS 05/01/2025 Refill [facility] [address] [place] [address] Jayjay Freeman MD Type 2 diabetes mellitus with hyperglycemia, without long-term current use of insulin ([facility]); Chronic pain syndrome 04/23/2025 Telephone [facility] [address] [place] [address] Jayjay Freeman MD call back neded 04/20/2025 Refill [facility] [address] [place] [address] Jayjay Freeman MD Chronic pain syndrome 04/16/2025 10:00 AM EDT Office Visit [facility] [address] [place] [address] Robert Rae DDS 04/13/2025 Refill [facility] [address] [place] [address] Jayjay Freeman MD Lumbar radiculopathy; Chronic left-sided thoracic back pain 04/09/2025 10:00 AM EDT Office Visit [facility] [address] [place] [address] Robert Rae DDAmos 04/09/2025 Refill [facility] [address] [place] [address] Jayjay Freeman MD Lumbar radiculopathy; Chronic left-sided thoracic back pain 04/05/2025 Refill [facility] [address] [place] [address] Jayjay Freeman MD Chronic pain syndrome; Type 2 diabetes mellitus with hyperglycemia, without long-term current use of insulin ([facility]) 04/04/2025 Telephone [facility] [address] [place] [address] Jayjay Freeman MD 04/02/2025 10:00 AM EDT Office Visit [facility] [address] [place], [place] [phone] Joya Zaragoza DDS 03/26/2025 Refill [facility] [address] [place] [address] Jayjay Freeman MD Chronic pain syndrome; Type 2 diabetes mellitus with hyperglycemia, without long-term current use of insulin ([facility]); Asthma, unspecified asthma severity, unspecified whether complicated, unspecified whether persistent 03/22/2025 1:00 PM EDT Office Visit [facility] [address] [place] [address] Joya Zaragoza DDS 03/22/2025 Telephone [facility] [address] [place] [address] Harika Whitney [place] nov recalls 03/20/2025 Telephone [facility] [address] [place] [address] Jayjay Freeman MD Med Refill 03/19/2025 Refill [facility] [address] [place] [address] Jayjay Freeman MD Lumbar radiculopathy; Chronic left-sided thoracic back pain 03/13/2025 Refill [facility] [address] [place] [address] Jayjay Freeman MD Lumbar radiculopathy; Chronic left-sided thoracic back pain 03/05/2025 Refill [facility] [address] [place] [address] Jayjay Freeman MD Chronic pain syndrome; Type 2 diabetes mellitus with hyperglycemia, without long-term current use of insulin ([facility]); Asthma, unspecified asthma severity, unspecified whether complicated, unspecified whether persistent 02/24/2025 Refill [facility] [address] [place] [address] Jayjay Freeman MD Chronic pain syndrome 02/23/2025 Refill [facility] [address] [place] [address] Jayjay Freeman MD Chronic pain syndrome; Lumbar radiculopathy; Chronic left-sided thoracic back pain 02/20/2025 Orders Only [facility] External Provider, [facility] 02/19/2025 Refill [facility] [address] [place] [address] Jayjay Freeman MD Type 2 diabetes mellitus with hyperglycemia, without long-term current use of insulin ([facility]) 02/19/2025 Refill [facility] [address] [place] [address] Name, MD Jayjay Lumbar radiculopathy; Chronic left-sided thoracic back pain 02/08/2025 Telephone [facility] [address] [place] [address] Name, MD Jayjay Med Refill 2025 Refill [facility] [address] [place] [address] Name, MD Jayjay Chronic pain syndrome; Type 2 diabetes mellitus with hyperglycemia, without long-term current use of insulin ([facility]) from Last 3 Months Immunizations Immunization Administration Dates Next Due Influenza High-dose Quadriva lent Preservative Free 04/01/2023 Influenza injectable quadriv alent IIV4 with preservative 07/25/2019,04/08/2017,05/21/2016 Influenza injectable quadriv alent preservative free 03/31/2022,07/25/2021,03/28/2020,06/17,06/12/2014,04/18/2013,05/27/2012 ,03/19/2011 Influenza, IIV3, injectable 06/17/2015,1 08/13/2013,04/18/2013,05/27,03/19/2011 Influenza, seasonal, injecta ble, preservative free 09/07/2024 Pfizer Covid-19 Vaccine 12+ 06/25/2023 Pneumococcal Conjugate PCV 20 06/25/2023 Pneumococcal Polysaccharide PPSV23 04/10/2010 TD (adult), 2 Lf tetanus tox oid, preservative free, adsorbed 07/25/2021 Tdap 03/19/2011 Zoster, Recombinant 12/18/2021,09/18/2021 Social History Tobacco Use Types Packs/Day Years Used Date Smoking Tobacco: Never Passive Smoke Exposure: Never Smokeless Tobacco: Never Tobacco Cessation:Counseling Given: Not Answered Alcohol Use Standard Drinks/Week Comments Never 0 [...] Orientation Straight 05/11/2022 10 :20 AM EDT Last Filed Vital Signs Vital Sign Reading Time Taken Comments Blood Pressure 140/80 05/02/2025 8:55 AM EDT Pulse 68 05/02/2025 8:55 AM EDT Temperature 36.7 C (98.1 F) 01/11/2025 11:00 AM EDT Respiratory Rate 22 01/11/2025 11:00 AM EDT Oxygen Saturation 99% 01/11/2025 11:00 AM EDT Inhaled Oxygen Concentration - - Weight 101 kg (223 lb 6 oz) 01/11/2025 11:00 AM EDT Height 180.3 cm (5' 11 ) 01/11/2025 11:00 AM EDT Body Mass Index 31.15 01/11/2025 11:00 AM EDT Plan of Treatment Upcoming Encounters Date Type Department Care Team (Late st Contact Info) Description 06/12/2025 11:00 AM EST Office Visit [facility] MED[facility]INE [address] [place] [phone] Name, MD Jayjay [address] [place] [phone] 06/20/2025 10:00 AM EST Office Visit [facility]ULT [facility] [address] [place], [place] [phone] Joya Zaragoza DDS [address] [place] [address] 08/08/2025 10:00 AM EST Clinical Support [address] [address] Charisse Crisostomo, RN Health Maintenance Due Date Last Done Comments CT Colonography 1960 Dental Oral Exam 1960 Dental Prophylaxis 1960 FIT DNA/Cologuard 1960 FIT 1960 FOBT 1960 Sigmoidoscopy 1960 Hepatitis C Screening 02/06/1976 RSV Patients and Patients Aged 60 years or older (1 - Risk 60-74 years 1-dose series) 2018 Colonoscopy 05/18/2023 05/18/2018 Colorectal Cancer Screening 05/18/2023 COVID-19 Vaccine ( season) 2025 06/25/2023, 04/27/2022, 11/27/2021, Additional history exists Influenza Vaccine (#1) 2025 , 04/01/2023, 03/31/2022, Additional history exists Depression Monitoring 07/14/2025 01/11/2025, 025 Diabetes: Hemoglobin A1C 07/14/2025 025, 07/19/2024, 01/07/2024, Additional history exists Diabetes: Foot Exam 09/07/2025 09/07/2024, 09/07/2024, 09/07/2024, Additional history exists Eye Exam 09/28/2025 09/29/2023 Diabetes: Urine Protein Screening 01/02/2026 01/02/2025, 09/27/2023, 10/06/2022, Additional history exists Lipid Panel 01/02/2026 01/02/2025, 09/09, 10/06/2022, Additional history exists Alcohol/Substance Use Screening 01/11/2026 01/11/2025 SDOH Screening 01/11/2026 01/11/2025 Dental X-Ray: Bitewings 03/23/2026 03/22/2025 Tobacco Screening 05/02/2026 05/02/2025 Dental X-Ray: Full Mouth 03/23/2028 03/22/2025 DTaP/Tdap/Td Vaccines (3 - Td or Tdap) 07/25/2031 07/25/2021, 03/19/2011 Zoster Vaccines Completed 12/18/2021, 09/18/2021 Pneumococcal Vaccine: 50+ Years Completed 06/25/2023, 04/10/2010 HIB Vaccines Aged Out No longer eligi [...] patient's age to complete this topic Meningococcal Vaccine Aged Out No yocasta tristin eligible based on patient's age to complete this topic RSV under 20 months Aged Out No longe r eligible based on patient's age to complete this topic Rotavirus Vaccines Aged Out No longer eligible based on patient's age to complete this topic Goals Goal Patient Goal Type Associated Problems Recent Progress Patient-Stated? Author Blood Pressure < 140/90 Blood Pressure 140/80(2024 8:55 AM EDT) No Heriberto Arellano Hemoglobin A1c < 7 Result Component 6.7( 11:02 AM EDT) No Heriberto Arellano Procedures Procedure Name Priority Date/Time Associated Diagnosis Comments POCT GLORIA-14 URINE DRUG SCREEN Routine 05/07/2025 10:48 AM EDT Long-term current use of opiate analgesic METHADONE SCREEN, URINE Routine 05/07/2025 10:00 AM EDT Long-term current use of opiate analgesic CASE PRESENTATION, DETAILED AND EXTENSIVE TREATMENT PLANNING Routine 05/02/2025 9:00 AM EDT 26 EXTRACTION, ERUPTED TOOTH OR EXPOSED ROOT [...] PRESENTATION, DETAILED AND EXTENSIVE TREATMENT PLANNING Routine 04/16/2025 10:00 AM EDT 28 ENDODONTIC THERAPY, PREMOLAR TOOTH Routine 04/16/2025 10:00 AM EDT 28 B(V) RESIN-BASED COMPOSITE - 1 SURF, POSTERIOR Routine 04/16/2025 10:00 AM EDT 22 ENDODONTIC THERAPY, ANTERIOR TOOTH Routine 04/09/2025 10:00 AM EDT CASE PRESENTATION, DETAILED AND EXTENSIVE TREATMENT PLANNING Routine 04/09/2025 10:00 AM EDT CASE PRESENTATION, DETAILED AND EXTENSIVE TREATMENT PLANNING Routine 04/02/2025 10:00 AM EDT 27 CORE BUILDUP, INCL ANY PINS WHEN REQ Routine 04/02/2025 10:00 AM EDT 27 ENDODONTIC THERAPY, ANTERIOR TOOTH Routine 04/02/2025 10:00 AM EDT INTRAORAL - COMPLETE SERIES OF RADIOGRAPHIC IMAGES Routine 03/22/2025 1:00 PM EDT CASE PRESENTATION, DETAILED AND EXTENSIVE TREATMENT PLANNING Routine 03/22/2025 1:00 PM EDT COMPREHENSIVE PERIODONTAL EVALUATION - NEW OR ESTABLISHED PATIENT Routine 03/22/2025 1:00 PM EDT 2,3,4,5,8,9,10,13 PARTIAL DENTURE - RESIN Routine 03/22/2025 12:00 AM EDT XR THORACIC SPINE 3 VIEWS Routine 02/21/2025 1:13 PM EDT XR LUMBAR SPINE COMPLETE 4+ VIEWS Routine 02/21/2025 1:11 PM EDT POCT GLYCATED HEMOGLOBIN, TOTAL Routine 01/11/2025 11:02 AM EDT Type 2 diabetes mellitus with hyperglycemia, without long-term current use of insulin ([facility]) ALBUMIN, RANDOM URINE W/CREATININE Routine 01/02/2025 10:23 AM EDT Type 2 diabetes mellitus with hyperglycemia, without long-term current use of insulin ([facility]) LIPID PANEL, STANDARD Routine 01/02/2025 10:23 AM EDT Type 2 diabetes mellitus with hyperglycemia, without long-term current use of insulin ([facility]) DIABETES EYE EXAM Routine 09/29/2023 COLONOSCOPY Routine 05/18/2018 8:40 AM EST from Last 3 Months or Most Recently Relevant to Health Maintenance Results * (ABNORMAL) POCT GLORIA-14 Urine Drug [...] Negative ng/mL Oxycodone Screen, Urine Positive(A) Negative 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 04/17/26 Internal Pass Control us Jayjay Freeman MD POINT OF CARE TEST ENTER/EDIT OR DERABLES Final Result * Drug Monitoring, Methadone Metabolite, Screen, Urine (05/07/2025 10:00 AM EDT) Methadone Screen, Urine Not Detected Not Detect ng/mL [facility] Comment:Methadone cut-off is 300 ng/mL.Positive results are unconfirmed and should not be used fornon-medical purposes. Urine (Urine, Random) 05/07/2025 10:00 AM EDT 05/07/2025 4:36 PM EDT us Jayjay Freeman MD LAB URINE ORDERABLES Final Resul t Performing Organization Address City/State/[facility] Co de Phone Number [facility] [address] [place] [address] [phone] * XR Thoracic Spine 3 Views (02/21/2025 1:13 PM EDT) Anatomical Region Laterality Modality Spine, T-spine Radiographic Emma ging 02/21/2025 1:13 PM EDT Narrative 02/21/2025 1:15 PM EDT [address] [address] XRay Report Signed Patient: Kj Gutierrez MR# : [id number] : 1960 Acct:[id number] Age/Sex: 65 / M ADM Date: 02/20/25 Loc: [facility] Attending Dr: Ludivina GARCIA Ordering Physician: Ludivina Dobbins Date of Service: 02/20/25 Procedure(s): XR thoracic spine 3V Accession Number(s): [id number] cc: Ludivina Dobbins; Name,Jayjay JUAREZ CLINICAL HISTORY: Z96.89 - Presence of other specified functional implants 3 views thoracic spine Comparison: CR/SR - XR THORACIC SPINE 2 VIEWS - 05/13/23 11:24 EDT Findings: Normal vertebral body alignment. No acute fractures or dislocation. There is degenerative change. The tip of the electrodes of the spinal stimulator is at level of T9, unchanged from prior. IMPRESSION: No acute findings. This document has been electronically signed by: Funmilayo Velasquez MD on 02/21/2025 13:13:50 Dictated By: Funmilayo Velasquez MD Signed By: <Electronically signed by Funmilayo Velasquez MD in OV> 02/21/251313 DD/ 12 TD/TT: 02/21/251312 Health Care Recruiter: Procedure Note Donotuseinterpreter, Image - 02/21/[address] [address] XRay Report Signed Patient: Kj Gutierrez MMR# : [id number] : 8Acct:[id number] Age/Sex: 65 / MADM Date: 02/20/25 Loc: [facility] Attending Dr: Ludivina GARCIA Ordering Physician: Ludivina Dobbins Date of Service: 02/20/25 Procedure(s): XR thoracic spine 3V Accession Number(s): [id number] cc: Ludivina Dobbins; Name,Jayjay JUAREZ CLINICAL HISTORY: Z96.89 - Presence of other specified functional implants 3 views thoracic spine Comparison: CR/SR - XR THORACIC SPINE 2 VIEWS - 05/13/23 11:24 EDT Findings: Normal vertebral body alignment. No acute fractures or dislocation. There is degenerative change. The tip of the electrodes of the spinal stimulator is at level of T9, unchanged from prior. IMPRESSION: No acute findings. This document has been electronically signed by: Funmilayo Velasquez MD on 02/21/2025 13:13:50 Dictated By: Funmilayo Velasquez MD Signed By: <Electronically signed by Funmilayo Velasquez MD in OV> 02/21/251313 DD/ 12 TD/TT: 02/21/251312 Health Care Recruiter: [facility] External Provider IMG XR PROCEDURES Final Result * XR Lumbar Spine Complete 4+ Views (02/21/2025 1:11 PM EDT) Anatomical Region Laterality Modality Spine, L-spine Radiographic Emma ging 02/21/2025 1:11 PM EDT Narrative 02/21/2025 1:12 PM EDT [address] [address] XRay Report Signed Patient: Kj Gutierrez MR# : [id number] : 1960 Acct:[id number] Age/Sex: 65 / M ADM Date: 02/20/25 Loc: [facility] Attending Dr: Ludivina GARCIA Ordering Physician: Ludivina Dobbins Date of Service: 02/20/25 Procedure(s): XR lumbar spine 4V min Accession Number(s): [id number] cc: Ludivina Dobbins; Name,Jayjay JUAREZ CLINICAL HISTORY: M54.50 - Low back pain, unspecified 5 views lumbar spine Comparison: None provided Findings: Normal alignment. No acute fractures or dislocation. Multilevel degenerative changes of the lumbar spine with osteophytes and narrowing of the intervertebral disc space. Spinal stimulator. IMPRESSION: No acute findings. Multilevel degenerative changes. This document has been electronically signed by: Funmilayo Velasquez MD on 02/21/2025 13:11:01 Dictated By: Funmilayo Velasquez MD Signed By: <Electronically signed by Funmilayo Velasquez MD in OV> 02/21/25 1311 DD/ 1311 TD/TT: 02/21/25 131 Health Care Recruiter: Procedure Note Donotuseinterpreter, Image - 02/21/[address] [address] XRay Report Signed Patient: Kj Gutierrez MMR# : [id number] : 8Acct:[id number] Age/Sex: 65 / MADM Date: 02/20/25 Loc: [facility] Attending Dr: Ludivina GARCIA Ordering Physician: Ludivina Dobbins Date of Service: 02/20/25 Procedure(s): XR lumbar spine 4V min Accession Number(s): [id number] cc: Ludivina Dobbins; Name,Jayjay JUAREZ CLINICAL HISTORY: M54.50 - Low back pain, unspecified 5 views lumbar spine Comparison: None provided Findings: Normal alignment. No acute fractures or dislocation. Multilevel degenerative changes of the lumbar spine with osteophytes and narrowing of the intervertebral disc space. Spinal stimulator. IMPRESSION: No acute findings. Multilevel degenerative changes. This document has been electronically signed by: Funmilayo Velasquez MD on 02/21/2025 13:11:01 Dictated By: Funmilayo Velasquez MD Signed By: <Electronically signed by Funmilayo Velasquez MD in OV> 02/21/251310 DD/ 10 TD/TT: 02/21/251310 Health Care Recruiter: [facility] External Provider IMG XR PROCEDURES Final Result * (ABNORMAL) POCT HGB A1C (01/11/2025 11:02 AM EDT) Hemoglobin A1C 6.7(A) 4.0 - 5.7 % QC Media Lot # [id number] Lot# Expiration Date Blood 01/11/2025 11:0 2 AM EDT Jayjay Freeman MD POINT OF CARE TEST ENTER/EDIT OR DERABLES Final Result * Albumin, Random Urine W/Creatinine (01/02/2025 10:23 AM EDT) Creatinine, Urine 183.24 mg/dL [facility] Microalbumin Urine 12.0 mg/L [facility] Microalbum Creatinine Ratio Ur 6.5 <30 ug/mg cr [facility] Comment:Albumin/Creatinine R at Reference Ranges: Normal: < 30 ug/mg creatinine Microalbuminuria: 30 - 300 ug/mg creatinineClinical Albuminuria: > 300 ug/mg creatinine Urine (Urine, Random) 01/02/2025 10:23 AM EDT 01/02/2025 11:19 AM EDT us Jayjay Freeman MD LAB URINE ORDERABLES Final Resul t Performing Organization Address [facility] Co de Phone Number [facility] [address] [place] [phone] * (ABNORMAL) Lipid Panel, Standard (01/02/2025 10:23 AM EDT) Triglycerides 107 <150 mg/dL [facility] Comment:Desirable Triglyceri de: less than 150 mg/dLBorderline High Triglyceride 150-199 mg/dLHigh Triglyceride: 200-499 mg/dLVery High Triglyceride: greater than or equal to 5OO mg/dL Cholesterol 131 <200 mg/dL [facility] Comment:Desirable Cholestero l: less than 200 mg/dLBorderline High Cholesterol: 200-239 mg/dLHigh Cholesterol: greater than 239 mg/dL LDL Cholesterol Calculated 73 <100 mg/dL [facility] Comment:Desirable LDL: less than 100 mg/dLNear Optimal/Above Optimal LDL: 110- 129 mg/dLBorderline High LDL: 130-159 mg/dLHigh LDL: 160-189 mg/dLVery High LDL: greater than or equal to 190 mg/dL HDL Cholesterol 37(L) >40 mg/dL [facility] Comment:Desirable HDL: great er than 40 mg/dL Note: This HDL assay may give artificially low results in patients with liver disease. Blood Venous blood specimen / Unknown 01/02/2025 10:23 AM EDT 01/02/2025 11:22 AM EDT us Jayjay Freeman MD LAB BLOOD ORDERABLES Final Resul t Performing Organization Address City/[facility]/ZIP Co de Phone Number [facility] [address] [place] [phone] * Hm Diabetes Eye Exam (09/29/2023) Eye Exam Normal Normal, BIRADS 0 , BIRADS 1 , BIRADS 2, BIRADS 3 , BIRADS 4+ us Ro Name HEALTH MAINTENANCE Final Result * Hm Colonoscopy (05/18/2018 8:40 AM EST) Colonoscopy Normal Normal Narrative Cherry Castrejon - 05/18/2018 8:40 AM EST Recommended 5 year follow up ( [facility]) Historical Provider HEALTH MAINTENANCE Final Result from Last 3 Months or Most Recently Relevant to Health Maintenance Insurance [facility] [employer] OPT[employer] (HMO D-SNP) [facility] STANDARD DENTAL-[facility] MEDICAID [facility] Care Teams Product Marketing Engineer Relationship Specialty Start Date End Date Name, MD Jayjay [address] [place] [address] PCP - General Family Medicine 07/26/15
[2025-05-16 08:45] LABS: Fentanyl, Ur Negative
[2025-05-16 08:46] LABS: Norfentanyl, Ur Negative
== END 2025-05-07 16:36 | disposition home or self-care (01) ==
LOC: HO.HHCLNP 16:35
PROVIDERS: Visit Provider Internal Medicine Geriatric Medicine
DX: Z51.81 Encounter for therapeutic drug level monitoring (principal); Z79.891 Long term (current) use of opiate analgesic
CPT/HCPCS: 80307; 80354